=== PATIENT | male | born 1945 | race Caucasian/White ===

== ENCOUNTER → 2018-12-10 | Outpatient (CLI) | payer BC ==
[2018-12-11 01:19] LABS: African American GFR (CKD) 44.7 (60.0-200.0); Anion Gap 11.7 mmol/L (4.00-12.00); BUN/Creat Ratio 14.12 Ratio (12.00-20.00); Calcium 9.5 mg/dL (8.7-10.3); Carbon Dioxide 25.3 mmol/L (21.6-31.8); Potassium 4.8 mmol/L (3.5-5.5)
== END | disposition home or self-care (01) ==
LOC: LABWHC1 14:21
PROVIDERS: ATTEND Internal Medicine Cardiovascular Disease
DX: I48.91 Unspecified atrial fibrillation (principal)
CPT/HCPCS: 36415; 80048

== ENCOUNTER 2019-01-03 06:55 | Emergency (ER) | payer MEDICARE, BC ==
[2019-01-03 07:16] VITALS: BP 186/76; PULSE 82; RESP 18; TEMP 98.3
--- NOTE | 2019-01-03 07:21 | ED ---
General Adult HPI - General Chief complaint: Urogenital Stated complaint: Urinary retention Time Seen by Provider: 01/03/19 07:00 Source: patient, EMS, RN notes reviewed Mode of arrival: EMS Limitations: no limitations - History of Present Illness Initial comments: Patient is a pleasant 73-year-old male presenting to the emergency department with urinary retention. Patient does have chronic bladder problems and urinate sometimes every half hour. Patient usually does not sleep more than 4 hours at night. Patient last urinated around midnight. Patient complains of fullness in the suprapubic region. No fevers. No other complaints. No injuries. No dysuria or hematuria. - Related Data Allergies Allergy/AdvReac Type Severity Reaction Status Date / Time No Known Allergies Allergy Verified 01/03/19 07:16 Review of Systems ROS Statement: Those systems with pertinent positive or pertinent negative responses have been documented in the HPI. ROS Other: All systems not noted in ROS Statement are negative. Constitutional: Denies: fever Eyes: Denies: eye pain ENT: Denies: ear pain Respiratory: Denies: cough, dyspnea Cardiovascular: Denies: chest pain Endocrine: Denies: fatigue Gastrointestinal: Reports: as per HPI Genitourinary: Reports: as per HPI, urgency Musculoskeletal: Denies: back pain Skin: Denies: rash Neurological: Denies: weakness Past Medical History Additional Past Medical History / Comment(s): Enlarged prostate History of Any Multi-Drug Resistant Organisms: None Reported Past Surgical History: Pacemaker Additional Past Surgical History / Comment(s): nasal surgery Past Psychological History: No Psychological Hx Reported Smoking Status: Never smoker Past Alcohol Use History: None Reported Past Drug Use History: None Reported General Exam Limitations: no limitations General appearance: alert, in no apparent distress Head exam: Present: normocephalic Eye exam: Present: normal appearance Neck exam: Present: normal inspection Respiratory exam: Present: normal lung sounds bilaterally Cardiovascular Exam: Present: regular rate, normal rhythm GI/Abdominal exam: Present: soft. Absent: tenderness exam: Present: normal inspection Extremities exam: Present: pedal edema (+1 bilateral the patient states is chronic). Absent: calf tenderness Neurological exam: Present: alert Psychiatric exam: Present: normal affect, normal mood Skin exam: Present: normal color Course Vital Signs 01/03/19 06:56 Temperature 98.3 F Pulse Rate 82 Respiratory 18 Rate Blood Pressure 186/76 O2 Sat by Pulse 97 Oximetry Medical Decision Making - Medical Decision Making Patient is symptom-free following Saenz catheter placement Disposition Clinical Impression: Urinary retention Disposition: HOME SELF-CARE Condition: Stable Instructions (If sedation given, give patient instructions): Urinary Retention in Men (ED) Additional Instructions: Please follow-up with urology in the next couple days for recheck. Please also follow-up with primary care physician. Return for pain, not passing urine, fevers, worsening symptoms or other concerns. Is patient prescribed a controlled substance at d/c from ED?: No Referrals: Chente Sanchez DO [Primary Care Provider] - 1-2 days Celso Garcia MD [STAFF PHYSICIAN] - 1-2 days Time of Disposition: 07:20
== END 2019-01-03 08:04 | disposition home or self-care (01) ==
LOC: EC 06:55
DX: R33.9 Retention of urine, unspecified (principal); Z95.0 Presence of cardiac pacemaker
CPT/HCPCS: 51702; 99283

== ENCOUNTER → 2019-01-13 | Outpatient (CLI) | payer MEDICARE, BC ==
--- NOTE | 2019-01-13 15:40 | XR ---
EXAMINATION TYPE: XR KUB DATE OF EXAM: 01/13/2019 COMPARISON: NONE HISTORY: Pain possible stone TECHNIQUE: One view abdominal series FINDINGS: Multilevel degenerative changes spine. Arthropathy of the hips correlate. Vascular calcifications pel vis. Punctate calcifications likely lie outside kidneys. Surgical clips quadrant. Chest leads in appe arance. Bowel gas pattern nonspecific. IMPRESSION: 1. Nonspecific abdomen. Punctate calcifications in the upper quadrants most likely lie outside the c ourse of the kidneys. They could potentially be within the proximal right ureter and correlation with noncontrast CT recommended.
== END | disposition home or self-care (01) ==
LOC: RADXRMAIN 15:18
PROVIDERS: ATTEND Urology
DX: N20.9 Urinary calculus, unspecified (principal)
CPT/HCPCS: 74018

== ENCOUNTER 2019-01-17 08:18 | Emergency (ER) | payer MEDICARE, BC ==
[2019-01-17 08:24] VITALS: RESP 18; TEMP 96.7
[2019-01-17] MEDS ORDERED: SODIUM CHLORIDE 0.9% 1,000 ML IV ONE (08:32)
[2019-01-17] MEDS ORDERED: MORPHINE SULFATE 4 MG/ML SYRINGE IV STA (08:32)
--- NOTE | 2019-01-17 08:35 | ED ---
General Adult HPI - General Chief complaint: Fall Stated complaint: FALL Time Seen by Provider: 01/17/19 08:21 Source: patient, EMS, RN notes reviewed Mode of arrival: EMS Limitations: no limitations - History of Present Illness Initial comments: Patient is a pleasant 73-year-old male presenting to the emergency department following a fall. Patient states he tripped and fell. Patient denies any head injury or loss of consciousness. Patient denies any blood thinners. Patient denies syncope. No neck or back pain. No chest pain or dyspnea. No abdominal pain. Patient only complains of right shoulder discomfort. Patient states discomfort is moderate but severe with any attempted movement. No history of injury to her previously. Patient does normally use a walker. - Related Data Home Medications Medication Instructions Recorded Confirmed Amiodarone [Cordarone] 200 mg PO DAILY 01/03/19 01/03/19 Aspirin [Adult Low Dose Aspirin EC] 81 mg PO DAILY 01/03/19 01/03/19 Atorvastatin [Lipitor] 10 mg PO DAILY 01/03/19 01/03/19 Furosemide [Lasix] 40 mg PO DAILY 01/03/19 01/03/19 Insulin Glargine,Hum.rec.anlog 25 - 50 unit SQ BID 01/03/19 01/03/19 [Basaglar Kwikpen U-100] Lisinopril 20 mg PO BID 01/03/19 01/03/19 Metoprolol Succinate [Toprol XL] 100 mg PO BID 01/03/19 01/03/19 Potassium Chloride ER [K-Dur 10] 10 meq PO BID 01/03/19 01/03/19 amLODIPine [Norvasc] 5 mg PO DAILY 01/03/19 01/03/19 metFORMIN HCL 1,000 mg PO BID 01/03/19 01/03/19 Allergies Allergy/AdvReac Type Severity Reaction Status Date / Time No Known Allergies Allergy Verified 01/03/19 07:29 Review of Systems ROS Statement: Those systems with pertinent positive or pertinent negative responses have been documented in the HPI. ROS Other: All systems not noted in ROS Statement are negative. Constitutional: Denies: fever Eyes: Denies: eye pain ENT: Denies: ear pain Respiratory: Denies: dyspnea Cardiovascular: Denies: chest pain Endocrine: Denies: fatigue Gastrointestinal: Denies: abdominal pain Genitourinary: Denies: dysuria Musculoskeletal: Denies: back pain Skin: Denies: rash Neurological: Denies: headache, weakness Past Medical History Additional Past Medical History / Comment(s): Enlarged prostate History of Any Multi-Drug Resistant Organisms: None Reported Past Surgical History: Pacemaker Additional Past Surgical History / Comment(s): nasal surgery Past Psychological History: No Psychological Hx Reported Smoking Status: Never smoker Past Alcohol Use History: None Reported Past Drug Use History: None Reported General Exam Limitations: no limitations General appearance: alert, in no apparent distress Head exam: Present: atraumatic, normocephalic Eye exam: Present: normal appearance, PERRL ENT exam: Present: mucous membranes dry Neck exam: Present: normal inspection. Absent: tenderness Respiratory exam: Present: normal lung sounds bilaterally Cardiovascular Exam: Present: regular rate, normal rhythm Expanded Peripheral pulses: 2+: Radial (R) GI/Abdominal exam: Present: soft. Absent: tenderness Extremities exam: Present: tenderness (Tenderness and fullness right anterior shoulder.), other (Distally all extremities are neurovascularly intact. Cap refill less than 2 seconds. Good sensation and good strength.). Absent: full ROM (Limited range of motion right shoulder secondary to pain) Back exam: Present: normal inspection. Absent: tenderness Neurological exam: Present: alert. Absent: motor sensory deficit Psychiatric exam: Present: normal affect, normal mood Skin exam: Present: normal color Course Vital Signs 01/17/19 08:20 Temperature 96.7 F L Pulse Rate 60 Respiratory 18 Rate Blood Pressure 130/58 O2 Sat by Pulse 95 Oximetry Medical Decision Making - Medical Decision Making Patient reevaluated. Patient and family updated. Also updated on need for follow-up with repeat white blood cell count. - Lab Data Result diagrams: 01/17/19 08:40 01/17/19 08:40 Lab Results 01/17/19 01/17/19 Range/Units 08:40 08:40 WBC 23.7 H (3.8-10.6) k/uL RBC 4.57 (4.30-5.90) m/uL Hgb 13.5 (13.0-17.5) gm/dL Hct 40.2 (39.0-53.0) % MCV 88.0 (80.0-100.0) fL MCH 29.5 (25.0-35.0) pg MCHC 33.6 (31.0-37.0) g/dL RDW 13.2 (11.5-15.5) % Plt Count 216 (150-450) k/uL Neutrophils % 92 % Lymphocytes % 4 % Monocytes % 3 % Eosinophils % 0 % Basophils % 0 % Neutrophils # 21.8 H (1.3-7.7) k/uL Lymphocytes # 1.0 (1.0-4.8) k/uL Monocytes # 0.7 (0-1.0) k/uL Eosinophils # 0.0 (0-0.7) k/uL Basophils # 0.0 (0-0.2) k/uL Sodium 142 (137-145) mmol/L Potassium 3.8 (3.5-5.1) mmol/L Chloride 106 (98-107) mmol/L Carbon Dioxide 23 (22-30) mmol/L Anion Gap 13 mmol/L BUN 32 H (9-20) mg/dL Creatinine 1.69 H (0.66-1.25) mg/dL Est GFR (CKD-EPI)AfAm 45 (>60 ml/min/1.73 sqM) Est GFR (CKD-EPI)NonAf 39 (>60 ml/min/1.73 sqM) Glucose 138 H (74-99) mg/dL Calcium 9.4 (8.4-10.2) mg/dL Total Bilirubin 0.8 (0.2-1.3) mg/dL AST 26 (17-59) U/L ALT 28 (21-72) U/L Alkaline Phosphatase 81 (38-126) U/L Creatine Kinase 144 (55-170) U/L Total Protein 7.0 (6.3-8.2) g/dL Albumin 3.8 (3.5-5.0) g/dL - Radiology Data Radiology results: image reviewed (Chest x-ray, right humerus, and right shoulder x-rays show a proximal right humerus fracture. There is also mild central chest congestion.) Disposition Clinical Impression: Fall, Proximal humerus fracture, Leukopenia Disposition: HOME SELF-CARE Condition: Stable Instructions (If sedation given, give patient instructions): Fall Prevention for Older Adults (ED), Proximal Humerus Fracture (ED) Additional Instructions: Use sling. Ice to affected area. [id number] Tylenol or Motrin as needed. Please follow-up with orthopedics in the next couple days for recheck. Please have primary care physician recheck white blood cell come. Return for increased pain, weakness, worsening or changing symptoms or other concerns. Is patient prescribed a controlled substance at d/c from ED?: No Referrals: Chente Sanchez DO [Primary Care Provider] - 1-2 days Rios Carson MD [STAFF PHYSICIAN] - 1-2 days Time of Disposition: 10:06
[2019-01-17 08:59] LABS: Basophils % (A) 0 %; Eosinophils % (A) 0 %; HCT 40.2 % (39.0-53.0); HGB 13.5 gm/dL (13.0-17.5); Lymphocytes % (A) 4 %; MCH 29.5 pg (25.0-35.0); MCHC 33.6 g/dL (31.0-37.0); Mean Platelet Volume 6.5; Monocytes # (A) 0.7 k/uL (0-1.0); Monocytes % (A) 3 %; Neutrophils # (A) 21.8 k/uL (1.3-7.7); Neutrophils % (A) 92 %; Platelet Count 216 k/uL (150-450); RBC 4.57 m/uL (4.30-5.90); RDW 13.2 % (11.5-15.5); WBC 23.7 k/uL (3.8-10.6)
[2019-01-17 09:10] LABS: Albumin 3.8 g/dL (3.5-5.0); Calcium 9.4 mg/dL (8.4-10.2); Potassium 3.8 mmol/L (3.5-5.1); Total Bilirubin 0.8 mg/dL (0.2-1.3)
--- NOTE | 2019-01-17 09:29 | XR ---
EXAMINATION TYPE: XR chest 2V DATE OF EXAM: 01/17/2019 COMPARISON: NONE HISTORY: Chest pain after fall TECHNIQUE: Frontal and lateral views of the chest are obtained. FINDINGS: There is slight vascular prominence throughout, predominantly centrally. There is no focal air space opacity, pleural effusion, or pneumothorax seen. Dual lead left-sided cardiac device is se en. Mediastinum is shifted to the left secondary to patient rotation. Cardiomediastinal silhouette ap pears upper limits of normal but nonenlarged. Right shoulder acute fracture discussed on the humeral x-rays and shoulder x-rays of the same date. IMPRESSION: 1. Mild central pulmonary vascular congestion. 2. Proximal right humeral fracture discussed on the right shoulder radiographs of the same date.
--- NOTE | 2019-01-17 09:31 | XR ---
EXAMINATION TYPE: XR shoulder complete 3 views RT, XR humerus 2 views RT DATE OF EXAM: 01/17/2019 COMPARISON: NONE HISTORY: 73-year-old male with fall and pain FINDINGS: Right shoulder: AC joint is intact. Mild degenerative spurring. There is a mildly fracture of the surgical neck with 1.3 cm of anterior impaction and slight anterior apex angulation. Questionable nondisplaced fracture lucency extending into the greater tuberosity. N o subluxation or dislocation. Right humerus: No additional acute fracture of the more mid to distal humerus. IMPRESSION: 1. Right shoulder: Anterior impaction of 1.3 cm with anterior apex angulation of the two-part surgica l neck fracture. Questionable mild comminution with a fracture lucency extending into the greater tub erosity region. 2. Right humerus: No additional acute fracture of the more mid to distal humerus.
[2019-01-17] MEDS ORDERED: ONDANSETRON 4 MG/2 ML VIAL IVP STA (10:01)
[2019-01-17] MEDS ORDERED: ACET/COD 300 MG/30 MG STARTER PACK 6 TAB BTL PO STA (10:04)
[2019-01-17 10:10] VITALS: BP 110/58; PULSE 65
== END 2019-01-17 10:08 | disposition home or self-care (01) ==
LOC: EC 08:18
DX: S42.211A Unspecified displaced fracture of surgical neck of right humerus, initial encounter for closed fracture (principal); D72.819 Decreased white blood cell count, unspecified; W01.0XXA Fall on same level from slipping, tripping and stumbling without subsequent striking against object, initial encounter; Y92.009 Unspecified place in unspecified non-institutional (private) residence as the place of occurrence of the external cause
CPT/HCPCS: 36415; 80053; 82550; 85025; 73030; 73060; 71046; 99284; 96374; 96375; 96361; J2270; J2405

== ENCOUNTER 2019-01-19 01:58 | Inpatient (IN) | payer MEDICARE, BC ==
[2019-01-19] MEDS ORDERED: MORPHINE SULFATE 4 MG/ML SYRINGE IM STA (02:46)
--- NOTE | 2019-01-19 02:47 | ED ---
General Adult HPI - General Chief complaint: Recheck/Abnormal Lab/Rx Stated complaint: Shoulder Pain Time Seen by Provider: 01/19/19 02:13 Source: patient, EMS Mode of arrival: EMS - History of Present Illness Initial comments: Vinny is a 73-year-old gentleman who returns to the emergency department today for reevaluation of persistent pain in his right shoulder. She was seen and evaluated yesterday after a mechanical trip and fall, workup revealed a proximal humerus fracture. Patient was placed in a sling and discharged home. Patient followed up with orthopedics the morning, he was advised that treatment will be conservative management with a sling there is no casting or surgical intervention recommended. He was prescribed Cowarts. Patient reports he has been taking Cowarts with 0 improvement in his pain. Patient reports the pain an 8 out of 10 intensity, constant. Patient usually walks with a walker. Patient reports that he is having trouble getting around, he's having trouble obtaining do his activities of daily living. Patient reports that earlier in the night he laid down in bed and was in such severe pain he was unable to move, he states that he called for help her long period of time because he could not reach his cell phone. Patient states he doesn't feel safe currently of blurry water [facility] because he is unable to help care for himself and there is not enough medical care available to him. - Related Data Home Medications Medication Instructions Recorded Confirmed Amiodarone [Cordarone] 200 mg PO DAILY 01/03/19 01/03/19 Aspirin [Adult Low Dose Aspirin EC] 81 mg PO DAILY 01/03/19 01/03/19 Atorvastatin [Lipitor] 10 mg PO DAILY 01/03/19 01/03/19 Furosemide [Lasix] 40 mg PO DAILY 01/03/19 01/03/19 Insulin Glargine,Hum.rec.anlog 25 - 50 unit SQ BID 01/03/19 01/03/19 [Basaglar Kwikpen U-100] Lisinopril 20 mg PO BID 01/03/19 01/03/19 Metoprolol Succinate [Toprol XL] 100 mg PO BID 01/03/19 01/03/19 Potassium Chloride ER [K-Dur 10] 10 meq PO BID 01/03/19 01/03/19 amLODIPine [Norvasc] 5 mg PO DAILY 01/03/19 01/03/19 metFORMIN HCL 1,000 mg PO BID 01/03/19 01/03/19 Allergies Allergy/AdvReac Type Severity Reaction Status Date / Time No Known Allergies Allergy Verified 01/03/19 07:29 Review of Systems ROS Statement: Those systems with pertinent positive or pertinent negative responses have been documented in the HPI. ROS Other: All systems not noted in ROS Statement are negative. Past Medical History Additional Past Medical History / Comment(s): Enlarged prostate History of Any Multi-Drug Resistant Organisms: None Reported Past Surgical History: Pacemaker Additional Past Surgical History / Comment(s): nasal surgery Past Psychological History: No Psychological Hx Reported Smoking Status: Never smoker Past Alcohol Use History: None Reported Past Drug Use History: None Reported General Exam - General Exam Comments Initial Comments: Physical Exam GENERAL: Elderly, appears uncomfortable HENT: Normocephalic, Atraumatic. EYES: PERRL, EOMI PULMONARY: Patient is taking shallow respirations secondary to pain in his shoulder CARDIOVASCULAR: Systolic murmur ABDOMEN: Soft and nontender with normal bowel sounds. SKIN: Skin is clear with no lesions or rashes and otherwise unremarkable. : Deferred NEUROLOGIC: Patient is alert and oriented x3. Moving all extremities spontaneously MUSCULOSKELETAL: Right upper extremity in a sling. Clearly refill is less than 3 seconds, he has normal range of motion of the hand and wrist. Elbow remains in sling, range of motion of shoulder was not assessed due to her PSYCHIATRIC: Agitated Course Vital Signs 01/19/19 01/19/19 01/19/19 02:01 02:58 02:59 Temperature 98.2 F Pulse Rate 61 60 Respiratory 18 18 Rate Blood Pressure 125/59 115/54 O2 Sat by Pulse 92 L 89 L 90 L Oximetry Medical Decision Making - Medical Decision Making The patient was seen and evaluated, history is obtained from the patient and review of medical record 73-year-old gentleman with a proximal humerus fracture from a mechanical trip and fall yesterday. Patient with persistent pain in the shoulder and inability to attend her activities of daily living secondary to pain and arm being in a splint. A dose of morphine was ordered for pain management. Patient was reassessed and reported no improvement in his pain however states he is now tired. I again discussed with patient options for discharge back to [facility] versus admission to the hospital for pain management and possible placement for higher level of care. At this time patient doesn't feel comfortable being discharged home. Patient care was discussed with admitting physician Dr. Astorga who agrees with plan for observation with plan for pain management and placement for safer care for the patient. Disposition Clinical Impression: Proximal humerus fracture Disposition: ADMITTED IP TO THIS [facility] Condition: Stable Additional Instructions: Continue to take your Cowarts as prescribed by orthopedics. Follow-up with your primary care physician for reevaluation of her high white blood cell count prior to your planned surgical procedure with urology. Is patient prescribed a controlled substance at d/c from ED?: No Referrals: Chente Sanchez DO [Primary Care Provider] - 1-2 days
[2019-01-19] MEDS ORDERED: NALOXONE 0.4 MG/ML 1 ML VIAL IV PRN (04:39)
[2019-01-19 05:22] LABS: Basophils # (A) 0.1 k/uL (0-0.2); Basophils % (A) 0 %; Eosinophils # (A) 0.1 k/uL (0-0.7); Eosinophils % (A) 1 %; HCT 36.1 % (39.0-53.0); Lymphocytes # (A) 1.4 k/uL (1.0-4.8); Lymphocytes % (A) 8 %; MCH 29.1 pg (25.0-35.0); MCHC 33.2 g/dL (31.0-37.0); MCV 87.6 fL (80.0-100.0); Mean Platelet Volume 6.6; Monocytes # (A) 0.8 k/uL (0-1.0); Monocytes % (A) 5 %; Neutrophils # (A) 14.8 k/uL (1.3-7.7); Neutrophils % (A) 86 %; Platelet Count 224 k/uL (150-450); RBC 4.12 m/uL (4.30-5.90); RDW 13.4 % (11.5-15.5); WBC 17.4 k/uL (3.8-10.6)
[2019-01-19 05:25] LABS: Albumin 3.6 g/dL (3.5-5.0); Calcium 8.5 mg/dL (8.4-10.2); Potassium 4.2 mmol/L (3.5-5.1); Total Bilirubin 0.5 mg/dL (0.2-1.3); Total Protein 6.6 g/dL (6.3-8.2)
[2019-01-19] MEDS: MORPHINE SULFATE 4 MG/ML SYRINGE IV PRN ×5 (06:06→22:28)
[2019-01-19 07:02] LABS: Glucose,Whole Blood 206 mg/dL (75-99)
--- NOTE | 2019-01-19 07:29 | P.HPIM ---
History of Present Illness H&P Date: 01/19/19 Chief Complaint: pain right shoulder 73-year-old male with history of hypertension, diabetes, unknown arrhythmia status post pacemaker. Patient reports sustaining a fall 2 days ago while at home he tripped on the rug, denies any headache injury or loss of consciousness he was brought into the ER was found to have proximal right humeral fracture he was placed in an arm sli ng and discharged home he followed up with orthopedics who recommended conservative management. Patient reports that at home he was dealing with a lot of pain taking [place]'s which wasn't apparently helping much he reports that he gets a caregiver regularly. At baseline he walks around his apartment of two- bedroom without assistance but he has 2 walkers when needed. However yesterday while at home he felt that the pain was poorly controlled and started affecting his quality of life he couldn't get himself up from a sitting position or when he lays down in the bed without contacting effort. He couldn't even reach out to his phone or call her to notify his caregiver that he needs help. For which she decided come back to the hospital to optimize his pain control. Patient also interested in placement for short period at the rehab facility if appropriate. Patient reports that he feels a lot of pain in his right shoulder even when he tries to take a deep breath or cough, even moving his fingers causes some discomfort in his right arm Upon review of systems patient reports 1-2 week history of urinary retention, he mentioned that he was evaluated at the ER for urinary retention for which he was found that he was retaining 900 mL of urine Saenz catheter was placed for few days he followed up with urology who did cystoscopy to rule out bladder stones. He was told that he has enlarged prostate. Since then he's been dealing with some urinary incontinence and retention, but denies any fevers or chills denies any abdominal pain denies any hematuria. Patient could not verify his home medications, he reports history of hypertension, diabetes, and pacemaker. He denies taking any blood thinners. He denies any GI bleeding. Patient was also noted to have right lower extremity swelling, he reports that this been going on for about a week now for which she takes Lasix. Denies any recent traveling, denies any trauma to the leg, denies any active diagnoses of cancer. Denies any pain or discomfort in his right lower extremity. Blood work in the ED showed elevated creatinine, elevated white count, and anemia. Review of Systems Pertinent positives as noted in HPI. All other systems were reviewed and are negative Past Medical History Past Medical History: Diabetes Mellitus, Hyperlipidemia, Hypertension, Prostate Disorder Additional Past Medical History / Comment(s): Enlarged prostate History of Any Multi-Drug Resistant Organisms: None Reported Past Surgical History: Pacemaker Additional Past Surgical History / Comment(s): nasal surgery Type of Cardiac Device: Permanent Pacemaker Device Placement Date:: 2017 Past Psychological History: No Psychological Hx Reported Smoking Status: Never smoker Past Alcohol Use History: None Reported Past Drug Use History: None Reported - Past Family History Family Family Medical History: No Reported History Medications and Allergies Home Medications Medication Instructions Recorded Confirmed Type Amiodarone [Cordarone] 200 mg PO DAILY 01/03/19 01/03/19 History Aspirin [Adult Low Dose Aspirin EC] 81 mg PO DAILY 01/03/19 01/03/19 History Atorvastatin [Lipitor] 10 mg PO DAILY 01/03/19 01/03/19 History Furosemide [Lasix] 40 mg PO DAILY 01/03/19 01/03/19 History Insulin Glargine,Hum.rec.anlog 25 - 50 unit SQ BID 01/03/19 01/03/19 History [Basaglar Kwikpen U-100] Lisinopril 20 mg PO BID 01/03/19 01/03/19 History Metoprolol Succinate [Toprol XL] 100 mg PO BID 01/03/19 01/03/19 History Potassium Chloride ER [K-Dur 10] 10 meq PO BID 01/03/19 01/03/19 History amLODIPine [Norvasc] 5 mg PO DAILY 01/03/19 01/03/19 History metFORMIN HCL 1,000 mg PO BID 01/03/19 01/03/19 History Allergies Allergy/AdvReac Type Severity Reaction Status Date / Time No Known Allergies Allergy Verified 01/03/19 07:29 Physical Exam Vitals: Vital Signs Temp Pulse Pulse Resp BP BP Pulse Ox 01/19/19 05:30 98.1 F 60 22 158/62 93 L 01/19/19 05:01 98.2 F 60 17 141/64 94 L 01/19/19 02:59 90 L 01/19/19 02:58 60 18 115/54 89 L 01/19/19 02:01 98.2 F 61 18 125/59 92 L Intake and Output 01/18/19 01/18/19 01/19/19 14:59 22:59 06:59 Output Total 150 Balance -150 Output: Urine 150 Other: Weight 99.79 kg Constitutional: No acute distress, conversant, pleasant Eyes: Anicteric sclerae, moist conjunctiva, no lid-lag Pupils equal round reactive to light ENMT: NC/AT Oropharynx clear, no erythema, exudates Neck: Supple, FROM, no masses, or JVD No carotid bruits No thyromegaly Lungs: Clear to auscultation Clear to percussion Normal respiratory effort, no accessory muscle use Cardiovascular: Heart regular in rate and rhythm, Systolic murmurs, no gallops, or rubs Unilateral right leg swelling +2 pitting edema Abdominal: Soft, no tenderness to percussion of the costovertebral angle Nontender, no guarding, rebound or rigidity Abdomen moving with respiration Normoactive bowel sounds No hepatomegaly, No splenomegaly No palpable mass No abdominal wall hernia noted Skin: Bruising and ecchymosis over the entirety of the right arm soft to the touch with some mild tenderness Normal temperature, tone, texture, turgor No induration No subcutaneous nodules No rash, lesions No ulcers Extremities: Radial pulse over the right wrist is intact, no swelling over the right hand, capillary refill is immediate over the right fingers. Patient denies any numbness or tingling over the right fingers No digital cyanosis No clubbing Pedal pulses intact bilaterally however more pronounced over the left foot Radial pulses intact and symmetrical No calf tenderness Psychiatric: Alert and oriented to person, place and time Appropriate affect fair judgment Neuro Muscles Strength 4/5 in bilateral lower extremities and left upper extremity limited exam over right upper extremity due to severe pain from recent humeral fracture Sensation to light touch grossly present throughout Cranial nerves II-XII grossly intact No focal sensory deficits Lymphatics: no palpable cervical or supraclavicular , or inguinal lymph nodes Results CBC & Chem 7: 01/19/19 05:07 01/19/19 05:07 Labs: Abnormal Lab Results - Last 24 Hours (Table) 01/19/19 01/19/19 Range/Units 05:07 05:07 WBC 17.4 H (3.8-10.6) k/uL RBC 4.12 L (4.30-5.90) m/uL Hgb 12.0 L (13.0-17.5) gm/dL Hct 36.1 L (39.0-53.0) % Neutrophils # 14.8 H (1.3-7.7) k/uL Sodium 135 L (137-145) mmol/L BUN 61 H (9-20) mg/dL Creatinine 3.14 H (0.66-1.25) mg/dL Glucose 215 H (74-99) mg/dL Thrombosis Risk Factor Assmnt - Choose All That Apply Any of the Below Risk Factors Present?: Yes Each Factor Represents 1 point: Obesity (BMI >25), Swollen legs (current) Other Risk Factors: Yes Each Risk Factor Represents 3 Points: Age 75 years or older Thrombosis Risk Factor Assessment Total Risk Factor Score: 5 Thrombosis Risk Factor Assessment Level: High Risk Assessment and Plan Assessment: 73-year-old male with history of hypertension, diabetes, unknown arrhythmia status post pacemaker. Patient sustained a mechanical trip and fall resulted in right humerus fracture 2 days ago, evaluated by orthopedic who recommended conservative management. Patient lives home alone he gets a caregiver however pain was intolerable patient couldn't function alone at home for which she decided come back to the hospital seeking help Upon presentation he was found to have elevated creatinine suspected to have underlying obstructive uropathy from history of prostate enlargement. Suspected UTI. And unilateral right lower extremity swelling rule out blood clot. Patient admitted as an inpatient with anticipated length of stay more than 2 midnights Plan: Acute kidney injury suspected underlying obstructive uropathy from history of benign prostatic hyperplasia Suspected urinary tract infection, patient has leukocytosis and foul-smelling urine Check bladder scan Check renal ultrasound Started on Flomax Check urinalysis and culture IV fluid hydration Avoid nephrotoxic meds Monitor urine output Consider urology consultation pending above workup Unilateral right leg swelling Venous duplex ultrasound to rule out blood clot Hypertension controlled Resume home meds once verified DM Currently controlled Insulin sliding scale Verify home insulin regimen Proximal right humeral fracture Pain control Per patient report, outpatient orthopedic evaluation recommended conservative therapy with arm sling Anemia, patient denies any GI bleeding Monitor hemoglobin closely Patient status post pacemaker unknown underlying cardiac pathology Again verify home meds which includes amiodarone GI prophylaxis PPI Fall precautions Consistent carbohydrate diet CODE STATUS: Full code DVT prophylaxis: Heparin subcu 3 times a day Discussed with: Patient, ER, RN Anticipated length of stay more than [address]: Short stay at subacute rehab A total of 60 minutes was spent on the care of this complex patient more than 50% of the time was spent in counseling and care coordination.
[2019-01-19] MEDS: TAMSULOSIN 0.4 MG CAP.ER.24H PO SCH (08:22)
[2019-01-19] MEDS: PANTOPRAZOLE 40 MG TABLET PO SCH (08:22)
[2019-01-19] MEDS: INSULIN ASPART (NovoLOG) 100 UNIT/ML VIAL SQ SCH ×4 (08:23→21:13)
[2019-01-19] MEDS: HEPARIN SODIUM,PORCINE 5,000 UNIT/ML 1 ML VIAL SQ SCH ×3 (08:23→22:27)
--- NOTE | 2019-01-19 10:02 | US ---
EXAMINATION TYPE: US venous doppler duplex LE RT DATE OF EXAM: 01/19/2019 9:28 AM COMPARISON: NONE CLINICAL HISTORY: blood clot. Right leg swelling, exam done portable. SIDE PERFORMED: Right TECHNIQUE: The lower extremity deep venous system is examined utilizing real time linear array sonog carson with graded compression, doppler sonography and color-flow sonography. VESSELS IMAGED: External Iliac Vein (EIV) Common Femoral Vein Deep Femoral Vein Greater Saphenous Vein * Femoral Vein Popliteal Vein Small Saphenous Vein * Proximal Calf Veins (* superficial vessels) Right Leg: Appears negative for DVT IMPRESSION: 1. No diagnostic evidence of DVT as visualized.
--- NOTE | 2019-01-19 10:03 | US ---
EXAMINATION TYPE: US kidneys/renal and bladder DATE OF EXAM: 01/19/2019 COMPARISON: NONE CLINICAL HISTORY: obstructive uropathy. Patient states no symptoms, exam done portable. EXAM MEASUREMENTS: Right Kidney: 10.4 x 4.9 x 4.6 cm Left Kidney: 11.0 x 6.7 x 5.1 cm Right Kidney: no hydronephrosis or masses seen Left Kidney: no hydronephrosis or masses seen Bladder: not fully distended 3.8 x 3.5 x 3.7cm hypoechoic area indenting posterior bladder, probable prostate IMPRESSION: 1. No hydronephrosis or nephrolithiasis. Hypoechoic area posterior to the bladder. This may represent ing enlarged prostate impressing upon the bladder, however, a bladder neoplasm is not excluded and a CT of the pelvis is recommended.
[2019-01-19] MEDS: SODIUM CHLORIDE 0.9% 1,000 ML IV SCH ×3 (10:42→21:39)
[2019-01-19] MEDS ORDERED: INSULIN GLARGINE HUM REC ANLOG 25 UNIT SQ PRN (11:18)
[2019-01-19 11:28] LABS: Appearance,Urine Clear (Clear); Bilirubin,Urine Negative (Negative); Blood,Urine Negative (Negative); Color,Urine Light Yellow; Glucose,Urine (UA) Negative (Negative); Ketones,Urine Negative (Negative); Leukocyte Esterase,Urine Negative (Negative); Nitrite,Urine Negative (Negative); Protein,Urine Trace (Negative); Specific Gravity,Urine 1.016 (1.001-1.035); Urobilinogen,Urine <2.0 mg/dL (<2.0)
[2019-01-19 12:12] LABS: Glucose,Whole Blood 180 mg/dL (75-99)
[2019-01-19 17:15] LABS: Glucose,Whole Blood 127 mg/dL (75-99)
--- NOTE | 2019-01-19 17:33 | P.PN ---
Progress Note - Text Progress Note Date: 01/19/19 Patient initially admitted for inability to take care of himself, ADLs, IADLs since fracture of his right humerus. Concerns for obstructive uropathy given elevation in creatinine. Bladder ultrasound shows no hydronephrosis or nephrolithiasis, hypoechoic area posterior to the bladder. I ordered CT abdomen and pelvis but wanted urology to evaluate the patient prior to any further testing ordered. Urology was consulted, stated that this was previously evaluated and confirmed to be hypertrophic of the prostate rather than neoplasm. CT abdomen and pelvis was canceled. Patient is started on IV antibiotics for concerns of UTI. Social work has been consulted and referral has been made for [facility]. He will need a 3 night stay prior to discharge.
[2019-01-19 20:07] LABS: Glucose,Whole Blood 144 mg/dL (75-99)
[2019-01-19] MEDS: INSULIN DETEMIR (LEVEMIR) 100 UNIT/ML SYR SQ SCH (21:13)
[2019-01-19] MEDS: METOPROLOL SUCCINATE (ER) 100 MG TAB.ER.24H PO SCH (21:13)
[2019-01-20] MEDS: SODIUM CHLORIDE 0.9% 1,000 ML IV SCH ×3 (05:37→21:34)
[2019-01-20 07:09] LABS: Glucose,Whole Blood 111 mg/dL (75-99)
[2019-01-20] MEDS: TAMSULOSIN 0.4 MG CAP.ER.24H PO SCH (08:02)
[2019-01-20] MEDS: ASPIRIN 81 MG PO SCH (08:02)
[2019-01-20] MEDS: ATORVASTATIN 10 MG TAB PO SCH (08:02)
[2019-01-20] MEDS: METOPROLOL SUCCINATE (ER) 100 MG TAB.ER.24H PO SCH ×2 (08:02→21:33)
[2019-01-20] MEDS: PANTOPRAZOLE 40 MG TABLET PO SCH (08:02)
[2019-01-20] MEDS: AMIODARONE 200 MG TAB PO SCH (08:02)
[2019-01-20] MEDS: amLODIPine 5 MG TAB PO SCH (08:02)
[2019-01-20] MEDS: INSULIN DETEMIR (LEVEMIR) 100 UNIT/ML SYR SQ SCH ×2 (08:03→21:34)
[2019-01-20] MEDS: HEPARIN SODIUM,PORCINE 5,000 UNIT/ML 1 ML VIAL SQ SCH ×3 (08:03→23:11)
[2019-01-20] MEDS: MORPHINE SULFATE 4 MG/ML SYRINGE IV PRN ×2 (08:04→21:37)
[2019-01-20] MEDS: INSULIN ASPART (NovoLOG) 100 UNIT/ML VIAL SQ SCH ×4 (08:18→21:34)
[2019-01-20 12:28] LABS: Glucose,Whole Blood 135 mg/dL (75-99)
[2019-01-20] MEDS: HYDROcodone/APAP 5-325MG 1 EACH TAB PO PRN (14:21)
--- NOTE | 2019-01-20 14:48 | P.PN ---
Subjective Progress Note Date: 01/20/19 Principal diagnosis: UTI Patient was seen and examined. No acute events overnight. Patient unhappy with hospital experience because he is unable to ambulate. PT called to assist patient. He denies any chest pain, shortness of breath or palpitations. No nausea or vomiting. No fever or chills. Right upper extremity pain greatly improved since starting [facility]. Objective - Vital Signs Vital signs: Vital Signs Temp 99.1 F 01/20/19 12:32 Pulse 61 01/20/19 12:32 Resp 20 01/20/19 12:32 BP 122/53 01/20/19 12:32 Pulse Ox 94 L 01/20/19 12:32 Intake & Output 01/19/19 01/20/19 01/20/19 18:59 06:59 18:59 Intake Total 400 Output Total 700 500 600 Balance -700 -100 -600 Intake: Oral 400 Output: Urine 700 500 600 Other: Voiding Method Urinal Incontinent # Voids 2 # Bowel Movements 0 0 - Exam General: [non toxic], [no distress], [appears at stated age] Derm: [warm], [dry] Head: [atraumatic], [normocephalic], [symmetric] Eyes: [EOMI], [no lid lag], [anicteric sclera] Mouth: [no lip lesion], [mucus membranes moist] Cardiovascular: [S1S2 reg], [no murmur], [positive DP pulse bilateral], Lungs: [CTA bilateral], [no rhonchi, no rales] , [no accessory muscle use] Abdominal: [soft], [ nontender to palpation], [no guarding], [no appreciable organomegaly], [condom catheter intact] Ext: [no gross muscle atrophy], [no edema], [no contractures], [right upper extremity in sling limited range of motion due to pain] Neuro: [ CN II-XI grossly intact], [no focal neuro deficits] Psych: [Alert], [oriented], [appropriate affect] - Labs CBC & Chem 7: 01/19/19 05:07 01/19/19 05:07 Labs: Abnormal Lab Results - Last 24 Hours (Table) 01/19/19 01/19/19 01/20/19 Range/Units 17:03 20:00 07:07 POC Glucose (mg/dL) 127 H 144 H 111 H (75-99) mg/dL 01/20/19 Range/Units 12:25 POC Glucose (mg/dL) 135 H (75-99) mg/dL Assessment and Plan Assessment: Assessment and Plan Acute kidney injury, rule out obstructive uropathy with history of BPH Urinary tract infection, patient with leukocytosis and foul-smelling urine Hypertension Diabetes mellitus Anemia Proximal right humeral fracture Creatinine 3.14. Bladder and kidney ultrasound shows no hydronephrosis or nephrolithiasis, hypoechoic area posterior to the bladder. Urology consulted, recommends no further workup as this hypoechoic area is known to be due to BPH. Plans: Continue normal saline at 130 mL/h. Avoid nephrotoxins. Repeat BMP today. UA shows no leukocyte esterase or nitrites. Foul-smelling urine. Patient with leukocytosis of 17.4. Afebrile. Does not meet sepsis criteria. Plans: Start Rocephin. Follow urine culture. BP 122/53. Plans: Continue amlodipine, metoprolol. Monitor vitals, adjust medications as necessary. [id number] glucose. Plans: Continue Levemir 25 units twice a day. Regular Accu-Cheks. Hypoglycemic precautions. Hemoglobin 12.0. Normocytic. Unknown significance. Plans: Transfuse if hemoglobin less than 7. Continue to monitor. Patient unable to take care of ADLs, IADLs. Plans: PT and OT for rehab placement. Social work working on [facility]. Earliest discharge is on Thursday.
[2019-01-20 17:15] LABS: Glucose,Whole Blood 130 mg/dL (75-99)
[2019-01-20 17:27] LABS: HCT 32.7 % (39.0-53.0); HGB 10.8 gm/dL (13.0-17.5); MCH 29.8 pg (25.0-35.0); MCHC 33.2 g/dL (31.0-37.0); MCV 89.8 fL (80.0-100.0); Mean Platelet Volume 7.1; Platelet Count 191 k/uL (150-450); RBC 3.64 m/uL (4.30-5.90); RDW 13.5 % (11.5-15.5); WBC 11.7 k/uL (3.8-10.6)
[2019-01-20 17:36] LABS: Calcium 8.1 mg/dL (8.4-10.2); Potassium 4.4 mmol/L (3.5-5.1)
[2019-01-20 21:24] LABS: Glucose,Whole Blood 171 mg/dL (75-99)
[2019-01-21] MEDS: MORPHINE SULFATE 4 MG/ML SYRINGE IV PRN ×3 (04:11→22:45)
[2019-01-21] MEDS: SODIUM CHLORIDE 0.9% 1,000 ML IV SCH ×2 (05:00→15:28)
--- NOTE | 2019-01-21 06:26 | P.CONS ---
History of Present Illness - Chief Complaint Walking difficulty - History of Present Illness I had the opportunity to see patient for inpatient rehab consultation with regard to walking difficulty. He was admitted to [facility] January 19 history of fall and right shoulder pain. X-ray revealed proximal humeral fracture and underwent slinging only. Ultrasound negative for hydronephrosis and rhythm lithiasis. Right leg Doppler negative for DVT. PT reports maximal assistance for bed mobility moderate assistance for transfer and minimal assistance for gait 20 feet with roller walker. OT reports maximal assistance for upper dressing and total assistance for lower dressing and bathing. Two-person total assist for toileting and transfers/functional mobility. Previous functional history as elicited from patient: 74 showed right-handed white male who is lives in a third-floor apartment at [facility], alone. Retired. Reports meals provided. Patient states that he can drive but doesn't. Describes independent with own laundry, standing shower and gait with device. Has 4 wheeled walker, roller walker and cane. PMD Dr. Chente acosta. Denies tobacco or alcohol. Family history father with cancer. Review of Systems Review of systems: ENT: Denies sneezes or discharge. Eyes: Denies discharge or photophobia. Cardiac: Denies chest pain or palpitation. Pulmonary: Denies cough or shortness of breath. Gastrointestinal: Denies nausea, emesis, constipation, diarrhea. Genitourinary: Denies discharge or frequency. Musculoskeletal: Right arm and shoulder discomfort. Neurologic: Denies motor or sensory change. Endocrine: Denies shakes or sweats. Oncology: Denies cancers. Dermatologic: Denies rash, itching, pruritus. ALLERGY/immunology: Denies sneezes, rashes. Past Medical History Past Medical History: Diabetes Mellitus, Hyperlipidemia, Hypertension, Prostate Disorder Additional Past Medical History / Comment(s): Enlarged prostate History of Any Multi-Drug Resistant Organisms: None Reported Past Surgical History: Pacemaker Additional Past Surgical History / Comment(s): nasal surgery Type of Cardiac Device: Permanent Pacemaker Device Placement Date:: 2017 Past Psychological History: No Psychological Hx Reported Smoking Status: Never smoker Past Alcohol Use History: None Reported Past Drug Use History: None Reported - Past Family History Family Family Medical History: No Reported History Medications and Allergies Home Medications Medication Instructions Recorded Confirmed Type Amiodarone [Cordarone] 200 mg PO DAILY 01/03/19 01/19/19 History Aspirin [Adult Low Dose Aspirin EC] 81 mg PO DAILY 01/03/19 01/19/19 History Atorvastatin [Lipitor] 10 mg PO DAILY 01/03/19 01/19/19 History Furosemide [Lasix] 40 mg PO BID 01/03/19 01/19/19 History Insulin Glargine,Hum.rec.anlog 25 unit SQ BID PRN 01/03/19 01/19/19 History [Basaglar Kwikpen U-100] Metoprolol Succinate [Toprol XL] 100 mg PO BID 01/03/19 01/19/19 History Potassium Chloride ER [K-Dur 10] 10 meq PO DAILY 01/03/19 01/19/19 History amLODIPine [Norvasc] 5 mg PO DAILY 01/03/19 01/19/19 History metFORMIN HCL 1,000 mg PO BID 01/03/19 01/19/19 History HYDROcodone/APAP 5-325MG [[place] 1 tab PO Q6H PRN 01/19/19 01/19/19 History 5-325] Losartan Potassium 100 mg PO DAILY 01/19/19 01/19/19 History Allergies Allergy/AdvReac Type Severity Reaction Status Date / Time No Known Allergies Allergy Verified 01/19/19 09:34 Physical Exam Vitals: Vital Signs Temp Pulse Resp BP Pulse Ox 01/21/19 04:30 97.9 F 60 20 151/68 91 L 01/20/19 21:50 97.4 F L 57 L 20 155/56 91 L 01/20/19 12:32 99.1 F 61 20 122/53 94 L Intake and Output 01/20/19 01/20/19 01/21/19 14:59 22:59 06:59 Intake Total 200 100 Output Total 600 Balance -600 200 100 Intake: Oral 200 100 Output: Urine 600 Other: Voiding Method Urinal Urinal Urinal Incontinent Incontinent Incontinent # Voids 2 2 2 # Bowel Movements 0 0 Skin: Good color, texture, turgor. General: Medium build and comfortable appearance. Head: Normocephalic, atraumatic. Eyes: Symmetric. Pupils equal round. Ears: Symmetric. Hearing within normal limits. Mouth: Clear. Neck: Supple. Carotid without bruit. Cardiac: Regular rate and rhythm. Lungs: Clear anteriorly and posteriorly. Abdomen: Soft active nontender. Extremities: Normal tone. Right arm in sling. Neurological: Mental status: Alert, cooperative, pleasant. Cranial nerves: Symmetric facial tone and trapezius. Motor: Normal strength and isolation both legs and left arm. Right arm with giveaway weakness especially proximally. Sensation: Intact throughout. DTRs: Symmetric and equal throughout. Mobility: Moves in bed on own. Results CBC & Chem 7: 01/20/19 14:44 01/20/19 14:44 Labs: Abnormal Lab Results - Last 24 Hours (Table) 01/20/19 01/20/19 01/20/19 Range/Units 07:07 12:25 14:44 WBC 11.7 H (3.8-10.6) k/uL RBC 3.64 L (4.30-5.90) m/uL Hgb 10.8 L (13.0-17.5) gm/dL Hct 32.7 L (39.0-53.0) % Chloride (98-107) mmol/L BUN (9-20) mg/dL Creatinine (0.66-1.25) mg/dL Glucose (74-99) mg/dL POC Glucose (mg/dL) 111 H 135 H (75-99) mg/dL Calcium (8.4-10.2) mg/dL 01/20/19 01/20/19 01/20/19 Range/Units 14:44 17:10 21:21 WBC (3.8-10.6) k/uL RBC (4.30-5.90) m/uL Hgb (13.0-17.5) gm/dL Hct (39.0-53.0) % Chloride 108 H (98-107) mmol/L BUN 39 H (9-20) mg/dL Creatinine 2.27 H (0.66-1.25) mg/dL Glucose 123 H (74-99) mg/dL POC Glucose (mg/dL) 130 H 171 H (75-99) mg/dL Calcium 8.1 L (8.4-10.2) mg/dL Microbiology - Last 24 Hours (Table) 01/20/19 17:00 Urine Culture - Preliminary Urine,Clean Catch Assessment and Plan (1) Proximal humerus fracture Current Visit: Yes Status: Acute Code(s): S42.209A - UNSP FRACTURE OF UPPER END OF UNSP HUMERUS, INIT FOR CLOS FX SNOMED Code(s): 999603192 (2) Urinary retention Current Visit: No Status: Acute Code(s): R33.9 - RETENTION OF URINE, UNSPECIFIED SNOMED Code(s): 635358177 Plan: Impression: 1. Walking difficulty. 2. Proximal right humeral fracture. 3. Urinary retention. 4. Hypertension. 5. Diabetes. 6. Dyslipidemia. Comments and plan: At this time PT and OT are ongoing. Patient is anxious and eager for discharge today to [facility]. Have discussed possible inpatient rehab at [facility] but patient resistant.
[2019-01-21] MEDS: INSULIN ASPART (NovoLOG) 100 UNIT/ML VIAL SQ SCH ×4 (07:24→21:03)
[2019-01-21 07:25] LABS: Glucose,Whole Blood 89 mg/dL (75-99)
[2019-01-21] MEDS: PANTOPRAZOLE 40 MG TABLET PO SCH (08:02)
[2019-01-21] MEDS: AMIODARONE 200 MG TAB PO SCH (08:02)
[2019-01-21] MEDS: amLODIPine 5 MG TAB PO SCH (08:02)
[2019-01-21] MEDS: HEPARIN SODIUM,PORCINE 5,000 UNIT/ML 1 ML VIAL SQ SCH ×3 (08:02→22:46)
[2019-01-21] MEDS: ASPIRIN 81 MG PO SCH (08:02)
[2019-01-21] MEDS: INSULIN DETEMIR (LEVEMIR) 100 UNIT/ML SYR SQ SCH ×2 (08:02→21:02)
[2019-01-21] MEDS: ATORVASTATIN 10 MG TAB PO SCH (08:02)
[2019-01-21] MEDS: TAMSULOSIN 0.4 MG CAP.ER.24H PO SCH (08:02)
[2019-01-21] MEDS: METOPROLOL SUCCINATE (ER) 100 MG TAB.ER.24H PO SCH ×2 (08:02→21:02)
[2019-01-21] MEDS: HYDROcodone/APAP 5-325MG 1 EACH TAB PO PRN ×3 (09:01→21:02)
[2019-01-21 12:05] LABS: Glucose,Whole Blood 134 mg/dL (75-99)
--- NOTE | 2019-01-21 15:17 | P.PN ---
Subjective Progress Note Date: 01/21/19 Principal diagnosis: UTI Patient was seen and examined. No acute events overnight. Patient complains of improved pain in his right shoulder since admission. States that he was able to ambulate the hallways without difficulties today. He denies any chest pain, shortness of breath or palpitations. No nausea or vomiting. No fever or chills. Objective - Vital Signs Vital signs: Vital Signs Temp 97.7 F 01/21/19 15:00 Pulse 59 L 01/21/19 15:00 Resp 16 01/21/19 15:00 BP 155/65 01/21/19 15:00 Pulse Ox 94 L 01/21/19 15:00 Intake & Output 01/20/19 01/21/19 01/21/19 18:59 06:59 18:59 Intake Total 300 Output Total 600 Balance -600 300 Intake: Oral 300 Output: Urine 600 Other: Voiding Method Urinal Urinal Urinal Incontinent Incontinent Incontinent # Voids 2 2 5 # Bowel Movements 0 - Exam General: [non toxic], [breathing appears slightly labored especially when speaki ng in full sentences], [appears at stated age] Derm: [warm], [dry] Head: [atraumatic], [normocephalic], [symmetric] Eyes: [EOMI], [no lid lag], [anicteric sclera] Mouth: [no lip lesion], [mucus membranes moist] Cardiovascular: [S1S2 reg], [no murmur], [positive DP pulse bilateral], Lungs: [CTA bilateral], [no rhonchi, no rales] , [no accessory muscle use] Abdominal: [soft], [ nontender to palpation], [no guarding], [no appreciable organomegaly], [condom catheter intact] Ext: [no gross muscle atrophy], [no edema], [no contractures], [right upper extremity in sling limited range of motion due to pain] Neuro: [ CN II-XI grossly intact], [no focal neuro deficits] Psych: [Alert], [oriented], [appropriate affect] - Labs CBC & Chem 7: 01/20/19 14:44 01/20/19 14:44 Labs: Abnormal Lab Results - Last 24 Hours (Table) 01/20/19 01/20/19 01/20/19 Range/Units 14:44 14:44 17:10 WBC 11.7 H (3.8-10.6) k/uL RBC 3.64 L (4.30-5.90) m/uL Hgb 10.8 L (13.0-17.5) gm/dL Hct 32.7 L (39.0-53.0) % Chloride 108 H (98-107) mmol/L BUN 39 H (9-20) mg/dL Creatinine 2.27 H (0.66-1.25) mg/dL Glucose 123 H (74-99) mg/dL POC Glucose (mg/dL) 130 H (75-99) mg/dL Calcium 8.1 L (8.4-10.2) mg/dL 01/20/19 01/21/19 Range/Units 21:21 12:03 WBC (3.8-10.6) k/uL RBC (4.30-5.90) m/uL Hgb (13.0-17.5) gm/dL Hct (39.0-53.0) % Chloride (98-107) mmol/L BUN (9-20) mg/dL Creatinine (0.66-1.25) mg/dL Glucose (74-99) mg/dL POC Glucose (mg/dL) 171 H 134 H (75-99) mg/dL Calcium (8.4-10.2) mg/dL Microbiology - Last 24 Hours (Table) 01/20/19 17:00 Urine Culture - Preliminary Urine,Clean Catch Assessment and Plan Assessment: Assessment and Plan Acute kidney injury, rule out obstructive uropathy with history of BPH Urinary tract infection, patient with leukocytosis and foul-smelling urine Hypertension Diabetes mellitus Anemia Proximal right humeral fracture Creatinine 3.14-2.27. Bladder and kidney ultrasound shows no hydronephrosis or nephrolithiasis, hypoechoic area posterior to the bladder. Urology consulted, recommends no further workup as this hypoechoic area is known to be due to BPH. Plans: Decreased IVF to normal saline at 50 mL per hour. Avoid nephrotoxins. Repeat BMP today. UA shows no leukocyte esterase or nitrites. Foul-smelling urine. Patient with leukocytosis of 17.4, improved to 11.7. Afebrile. Does not meet sepsis criteria. Plans: Start Rocephin. Follow urine culture. BP 155/65. Plans: Continue amlodipine, metoprolol. Monitor vitals, adjust medications as necessary. [id number] glucose 134. Plans: Continue Levemir 25 units twice a day. Regular Accu-Cheks. Hypoglycemic precautions. Hemoglobin 10.8. Normocytic. Unknown significance. Decreasing hemoglobin likely due to dilution. Plans: Transfuse if hemoglobin less than 7. Continue to monitor. Patient unable to take care of ADLs, IADLs. Plans: PT and OT for rehab placement. Social work working on [facility]. Earliest discharge is on Thursday.
--- NOTE | 2019-01-21 15:38 | XR ---
EXAMINATION TYPE: XR chest 1V portable DATE OF EXAM: 01/21/2019 COMPARISON: Prior chest x-ray 01/17/2019 HISTORY: Shortness breath TECHNIQUE: Single frontal view of the chest is obtained. FINDINGS: Bones are stable. Heart is enlarged. There is a generator in left pectoral region, leads ar e present right atrium and ventricle. Interstitium is increased. No pneumothorax or pleural effusion. IMPRESSION: Correlate for pulmonary venous hypertension and interstitial edema.
[2019-01-21] MEDS: FUROSEMIDE 10 MG/ML 4 ML VIAL IV SCH (17:01)
[2019-01-21 17:24] LABS: Glucose,Whole Blood 98 mg/dL (75-99)
[2019-01-21] MEDS ORDERED: FUROSEMIDE 10 MG/ML 4 ML VIAL IV SCH (21:00)
[2019-01-21 21:07] LABS: Glucose,Whole Blood 163 mg/dL (75-99)
--- NOTE | 2019-01-21 22:03 | P.GSCN ---
History of Present Illness Consult date: 01/21/19 Reason for Consult: BPH History of present illness: Mr. Hoffmann is 73 yo male that was admitted to [facility] January 19 history of fall and right shoulder pain. X-ray revealed proximal humeral fracture and underwent slinging only. Patient also had NICKIE, RBUS was obtained which showed no hydronephrosis and hypoechoic area in the posterior aspect of the bladder. Of note he underwent a recent cystoscopy which showed enalrged prostate with median lobe protrusion into the bladder. Patient has bothersome obstructive symptoms and recurrent Urinary retention Review of Systems - Constitutional Denies chills, Denies fever - Cardiovascular Denies chest pain, Denies leg edema - Genitourinary Denies dysuria, Denies flank pain, Denies hematuria - Musculoskeletal Reports fractures, Reports frequent falls - Neurological Denies confusion, Denies weakness - Psychiatric Denies confusion Past Medical History Past Medical History: Diabetes Mellitus, Hyperlipidemia, Hypertension, Prostate Disorder Additional Past Medical History / Comment(s): Enlarged prostate History of Any Multi-Drug Resistant Organisms: None Reported Past Surgical History: Pacemaker Additional Past Surgical History / Comment(s): nasal surgery Type of Cardiac Device: Permanent Pacemaker Device Placement Date:: 2017 Past Psychological History: No Psychological Hx Reported Smoking Status: Never smoker Past Alcohol Use History: None Reported Past Drug Use History: None Reported - Past Family History Family Family Medical History: No Reported History Medications and Allergies Home Medications Medication Instructions Recorded Confirmed Type Amiodarone [Cordarone] 200 mg PO DAILY 01/03/19 01/19/19 History Aspirin [Adult Low Dose Aspirin EC] 81 mg PO DAILY 01/03/19 01/19/19 History Atorvastatin [Lipitor] 10 mg PO DAILY 01/03/19 01/19/19 History Furosemide [Lasix] 40 mg PO BID 01/03/19 01/19/19 History Insulin Glargine,Hum.rec.anlog 25 unit SQ BID PRN 01/03/19 01/19/19 History [Basaglar Kwikpen U-100] Metoprolol Succinate [Toprol XL] 100 mg PO BID 01/03/19 01/19/19 History Potassium Chloride ER [K-Dur 10] 10 meq PO DAILY 01/03/19 01/19/19 History amLODIPine [Norvasc] 5 mg PO DAILY 01/03/19 01/19/19 History metFORMIN HCL 1,000 mg PO BID 01/03/19 01/19/19 History HYDROcodone/APAP 5-325MG [[place] 1 tab PO Q6H PRN 01/19/19 01/19/19 History 5-325] Losartan Potassium 100 mg PO DAILY 01/19/19 01/19/19 History Allergies Allergy/AdvReac Type Severity Reaction Status Date / Time No Known Allergies Allergy Verified 01/19/19 09:34 Surgical - Exam Vital Signs Temp Pulse Resp BP Pulse Ox 98.2 F 61 18 125/59 92 L 01/19/19 02:01 01/19/19 02:01 01/19/19 02:01 01/19/19 02:01 01/19/19 02:01 - General well developed, well nourished, no distress - ENT normal mucosa - Respiratory normal expansion, normal respiratory effort - Abdomen Abdomen: soft, non tender - Psychiatric oriented to time, oriented to person, oriented to place Results - Labs 01/20/19 14:44 01/20/19 14:44 Abnormal Lab Results - Last 24 Hours (Table) 01/21/19 01/21/19 Range/Units 12:03 21:02 POC Glucose (mg/dL) 134 H 163 H (75-99) mg/dL Microbiology - Last 24 Hours (Table) 01/20/19 17:00 Urine Culture - Preliminary Urine,Clean Catch Assessment and Plan Assessment: 73 yo male admitted with NICKIE, and fall resulting in humerus fracture. His workup in ED also demonstrated NICKIE, since admission his creat is trending down. RBUS ultrasound demonstrated no hydronephrosis and hypoechoic area in the bladder. -The hypoechoic are in bladder on ultrasound is the enlarged prostate, patient had a recent cystoscopy demonstrated an enlarged prostate -F/U on urine culture are treat based on susceptibility if culture is positive -Patient is tentatively scheduled for TURP on 02/07 pending cardiac clearance
[2019-01-22] MEDS: FUROSEMIDE 10 MG/ML 4 ML VIAL IV SCH (05:16)
[2019-01-22] MEDS: MORPHINE SULFATE 4 MG/ML SYRINGE IV PRN (05:16)
[2019-01-22 05:18] VITALS: BP 182/68; PULSE 59; RESP 16; TEMP 97.4
[2019-01-22 07:13] LABS: Glucose,Whole Blood 61 mg/dL (75-99)
[2019-01-22] MEDS: INSULIN ASPART (NovoLOG) 100 UNIT/ML VIAL SQ SCH (07:23)
[2019-01-22] MEDS: PANTOPRAZOLE 40 MG TABLET PO SCH (07:32)
[2019-01-22] MEDS: HEPARIN SODIUM,PORCINE 5,000 UNIT/ML 1 ML VIAL SQ SCH (07:32)
[2019-01-22] MEDS: AMIODARONE 200 MG TAB PO SCH (07:32)
[2019-01-22] MEDS: INSULIN DETEMIR (LEVEMIR) 100 UNIT/ML SYR SQ SCH (07:32)
[2019-01-22] MEDS: TAMSULOSIN 0.4 MG CAP.ER.24H PO SCH (07:32)
[2019-01-22] MEDS: METOPROLOL SUCCINATE (ER) 100 MG TAB.ER.24H PO SCH (07:32)
[2019-01-22] MEDS: amLODIPine 5 MG TAB PO SCH (07:33)
[2019-01-22] MEDS: HYDROcodone/APAP 5-325MG 1 EACH TAB PO PRN (07:33)
[2019-01-22] MEDS: ATORVASTATIN 10 MG TAB PO SCH (07:33)
[2019-01-22] MEDS: ASPIRIN 81 MG PO SCH (07:33)
[2019-01-22 07:36] LABS: Glucose,Whole Blood 66 mg/dL (75-99)
[2019-01-22 08:11] LABS: Calcium 8.6 mg/dL (8.4-10.2); Potassium 3.8 mmol/L (3.5-5.1)
[2019-01-22 08:12] LABS: Glucose,Whole Blood 122 mg/dL (75-99)
--- NOTE | 2019-01-22 09:06 | P.DS ---
Providers Date of admission: 01/19/19 04:39 Expected date of discharge: 01/22/19 Attending physician: Americo Parsons MD Consults: 01/19/19 12:25 Consult Physician Routine Consulting Provider: Celso Garcia Consult Reason/Comments: known to patient, is CT necessary? Do you want consulting provider notified?: Yes 01/20/19 16:59 Consult Physician Routine Consulting Provider: Pool Dior Consult Reason/Comments: inpatient rehab Do you want consulting provider notified?: Yes Primary care physician: Chente Prior Hospital Course: 73-year-old male with PMH of hypertension, diabetes and unknown arrhythmia status post pacemaker initially presented to the ED after a fall 2 days ago when he tripped on a rug. He was found to have a proximal right humeral fracture and placed in an arm sling and discharged with follow-up with orthopedic surgery. Since then, patient has had difficulties with his ADLs and IADLs. Patient was admitted for possible rehab placement. Patient also reported one to 2 week history of urinary retention, for which he was evaluated in the ED, found to be retaining 900 mL of urine, Saenz catheter was placed and he had a follow-up with urology who did a cystoscopy to rule out bladder stones. Patient was told that he has enlarged prostate. Patient was diagnosed with acute kidney injury and plan was to rule out obstructive uropathy. His creatinine on admission was 3.14. Bladder and kidney ultrasound was done which showed no hydronephrosis or nephrolithiasis and hypoechoic area in the posterior of the bladder. CT abdomen and pelvis was recommended for evaluation of this hypoechoic area. Urology was consulted and recommended no further workup along with CT as this was known to be due to BPH. Patient was initially hydrated with normal saline at 130 mL/h. His creatinine was 2.03 at the time of discharge. Bladder scan was done which shows 30 mL retained urine. Patient had concerns of dysuria as well. Urinalysis showed no leukocyte esterase or nitrites. His urine though was foul-smelling. Patient had leukocytosis of 17.4 which improved to 11.7 at the time of discharge. He did not meet sepsis criteria. He was given Rocephin during his hospitalization. Urine culture was negative at the time of discharge. On 01/21/2019, patient was noted to appear short of breath despite having no complaints. Chest x-ray was ordered which showed interstitial fluid. This was likely due to the IVF that was given to him throughout his hospitalization. He was given 2 doses of Lasix 40 mg IV and converted to oral at discharge. Patient was noted to be saturating in the mid 90s throughout his hospitalization. Patient was seen and examined. No acute events overnight. Patient denies any chest pain, shortness of breath or palpitations. No nausea or vomiting. No fever or chills. He is looking forward to going to rehab. He does complain of right-sided shoulder pain but well-controlled with [place]. General: [non toxic], [no distress], [appears at stated age] Derm: [warm], [dry] Head: [atraumatic], [normocephalic], [symmetric] Eyes: [EOMI], [no lid lag], [anicteric sclera] Mouth: [no lip lesion], [mucus membranes moist] Cardiovascular: [S1S2 reg], [no murmur], [positive DP pulse bilateral], Lungs: [CTA bilateral], [no rhonchi, no rales] , [no accessory muscle use] Abdominal: [soft], [ nontender to palpation], [no guarding], [no appreciable organomegaly], [condom catheter intact] Ext: [no gross muscle atrophy], [no edema], [no contractures], [right upper extremity in sling limited range of motion due to pain] Neuro: [no focal neuro deficits] Psych: [Alert], [oriented], [appropriate affect] Assessment and Plan Acute kidney injury, rule out obstructive uropathy with history of BPH Urinary tract infection, patient with leukocytosis and foul-smelling urine Hypertension Diabetes mellitus Anemia Proximal right humeral fracture Creatinine 3.14-2.27-2.03. Bladder and kidney ultrasound shows no hydroneph rosis or nephrolithiasis, hypoechoic area posterior to the bladder. Urology consulted, recommends no further workup as this hypoechoic area is known to be due to BPH. Plans: DC IVF and encourage hydration by mouth. Avoid nephrotoxins. Patient likely has component of chronic kidney disease which will need to be evaluated by nephrology in the future. He does not have any metabolic acidosis. UA shows no leukocyte esterase or nitrites. Foul-smelling urine. Patient with leukocytosis of 17.4, improved to 11.7. Afebrile. Does not meet sepsis criteria. Plans: Urine cultures negative. He has completed 4 days of Rocephin. No more antibiotics on discharge. BP 182/60.. Plans: Continue amlodipine, metoprolol. Monitor vitals, adjust medications as necessary. Fqihp-er-fmvs glucose 122. Plans: Continue Levemir 25 units twice a day. Regular Accu-Cheks. Hypoglycemic precautions. Hemoglobin 10.8. Normocytic. Unknown significance. Decreasing hemoglobin likely due to dilution. Plans: Transfuse if hemoglobin less than 7. Continue to monitor. Patient unable to take care of ADLs, IADLs. Plans: PT and OT for rehab placement. Social work working on [facility]. Earliest discharge is on Thursday. [Patient with no complaints. He denies any shortness of breath. He is saturating in 90s on room air. He is received 2 doses of Lasix. Can convert to by mouth. We will discharge the patient to [facility] today. Repeat chest x-ray in 3 days. Repeat BMP in 3 days. Follow-up with nephrology outpatient.] Pertinent Studies: Abdomen and bladder ultrasound, venous duplex, chest x-ray Patient Condition at Discharge: Stable Plan - Discharge Summary New Discharge Prescriptions: New Tamsulosin [Fl[facility]] [facility]er.24h Continue Aspirin [Adult Low Dose Aspirin EC] 81 mg PO DAILY Metoprolol Succinate [Toprol XL] 100 mg PO BID metFORMIN HCL 1,000 mg PO BID amLODIPine [Norvasc] 5 mg PO DAILY Furosemide [Lasix] 40 mg PO BID Atorvastatin [Lipitor] 10 mg PO DAILY Amiodarone [Cordarone] 200 mg PO DAILY Insulin Glargine,Hum.rec.anlog [Basaglar Kwikpen U-100] 25 unit SQ BID PRN PRN Reason: Blood Sugar - High Losartan Potassium 100 mg PO DAILY HYDROcodone/APAP 5-325MG [[place] 5-325] 1 tab PO Q6H PRN #12 tab PRN Reason: Pain Discontinued Potassium Chloride ER [K-Dur 10] 10 meq PO DAILY Discharge Medication List Amiodarone [Cordarone] 200 mg PO DAILY 01/03/19 [History] Aspirin [Adult Low Dose Aspirin EC] 81 mg PO DAILY 01/03/19 [History] Atorvastatin [Lipitor] 10 mg PO DAILY 01/03/19 [History] Furosemide [Lasix] 40 mg PO BID 01/03/19 [History] Insulin Glargine,Hum.rec.anlog [Basaglar Kwikpen U-100] 25 unit SQ BID PRN 01/03/19 [History] Metoprolol Succinate [Toprol XL] 100 mg PO BID 01/03/19 [History] amLODIPine [Norvasc] 5 mg PO DAILY 01/03/19 [History] metFORMIN HCL 1,000 mg PO BID 01/03/19 [History] Losartan Potassium 100 mg PO DAILY 01/19/19 [History] HYDROcodone/APAP 5-325MG [[place] 5-325] 1 tab PO Q6H PRN #12 tab 01/22/19 [Rx] Tamsulosin [Flomax] 0.4 mg PO PC-BRKFST #30 cap.er.24h 01/22/19 [Rx] Follow up Appointment(s)/Referral(s): Chente Sanchez DO [Primary Care Provider] - 1-2 days Kingston Melgoza DO [STAFF PHYSICIAN] - 1 Week Celso Garcia MD [STAFF PHYSICIAN] - 1 Week Ambulatory/Diagnostic Orders: Basic Metabolic Panel [LAB.AMB] Time Frame: 3 Days, Location: None Selected Complete Blood Count w/diff [LAB.AMB] Location: None Selected XR chest 2V [RAD.AMB] Location: None Selected Activity/Diet/Wound Care/Special Instructions: Continue to take your [place] as prescribed by orthopedics. Follow-up with your primary care physician for reevaluation of her high white blood cell count prior to your planned surgical procedure with urology. Follow-up with PCP within 3 days of discharge. Repeat CBC in 3 days. Repeat BMP in 3 days. Repeat chest x-ray in 3 days. Follow-up with urology within 1 week. Follow up with nephrology within 1 week. Discharge Disposition: TRANSFER TO SNF/ECF
== END 2019-01-22 10:50 | DRG 683 ==
LOC: EC 01:58 → OBSVTOIN 04:39 → 4MS4W 04:39
PROVIDERS: ADMIT Internal Medicine; ATTEND Internal Medicine
DX: N17.9 Acute kidney failure, unspecified (principal); S42.201A Unspecified fracture of upper end of right humerus, initial encounter for closed fracture; N39.0 Urinary tract infection, site not specified; W01.0XXA Fall on same level from slipping, tripping and stumbling without subsequent striking against object, initial encounter; N40.1 Benign prostatic hyperplasia with lower urinary tract symptoms; R33.8 Other retention of urine; N13.9 Obstructive and reflux uropathy, unspecified; M79.89 Other specified soft tissue disorders; N40.0 Benign prostatic hyperplasia without lower urinary tract symptoms; N18.9 Chronic kidney disease, unspecified; E11.22 Type 2 diabetes mellitus with diabetic chronic kidney disease; I12.9 Hypertensive chronic kidney disease with stage 1 through stage 4 chronic kidney disease, or unspecified chronic kidney disease; D64.9 Anemia, unspecified; E78.5 Hyperlipidemia, unspecified; I10 Essential (primary) hypertension; E11.9 Type 2 diabetes mellitus without complications; Z95.0 Presence of cardiac pacemaker; Y92.099 Unspecified place in other non-institutional residence as the place of occurrence of the external cause; Z79.899 Other long term (current) drug therapy; Z79.82 Long term (current) use of aspirin; Z79.84 Long term (current) use of oral hypoglycemic drugs; Z79.4 Long term (current) use of insulin; Z80.9 Family history of malignant neoplasm, unspecified
CPT/HCPCS: 71045; 76770; 80048; 80053; 81003; 85025; 85027; 87086; 96372; 99284

== ENCOUNTER 2019-03-08 09:33 | Emergency (ER) | payer MEDICARE, BC ==
[2019-03-08 10:08] VITALS: BP 136/58; PULSE 60; TEMP 98.4
--- NOTE | 2019-03-08 10:37 | ED ---
Fall HPI - General Chief Complaint: Fall Stated Complaint: rt arm pain Time Seen by Provider: 03/08/19 10:18 Source: patient Mode of arrival: EMS - History of Present Illness Initial Comments: Patient is a 73-year-old male presenting to emergency Department complaining of right shoulder pain after he fell today. Patient states he has a history of a proximal humerus fracture that happened in December. Patient states he lost his footing today and fell off to his right side hitting his right shoulder and also hitting the head on a carpeted floor. Patient states his head does not hurt and he has no neck pain. Patient denies dizziness, nausea, vomiting. He has no other complaints other than his right shoulder pain. Upon arrival to ER, his vital signs are stable. - Related Data Home Medications Medication Instructions Recorded Confirmed Amiodarone [Cordarone] 200 mg PO DAILY 01/03/19 02/01/19 Atorvastatin [Lipitor] 10 mg PO DAILY 01/03/19 02/01/19 Furosemide [Lasix] 40 mg PO BID 01/03/19 02/01/19 Insulin Glargine,Hum.rec.anlog 25 unit SQ DAILY 01/03/19 02/01/19 [Basaglar Kwikpen U-100] Metoprolol Succinate [Toprol XL] 100 mg PO BID 01/03/19 02/01/19 amLODIPine [Norvasc] 5 mg PO DAILY 01/03/19 02/01/19 metFORMIN HCL 1,000 mg PO BID 01/03/19 02/01/19 Losartan Potassium 100 mg PO DAILY 01/19/19 02/01/19 Bisacodyl [Dulcolax] 10 mg RECTAL DAILY PRN 02/01/19 02/01/19 Caldasene Powder 1 applicate TOPICAL BID 02/01/19 02/01/19 Omar 1 applicate TOPICAL BID 02/01/19 02/01/19 Insulin Glargine [Lantus] 12 unit SQ HS 02/01/19 02/01/19 Magnesium Hydroxide [Milk of 30 ml PO DIRECTED PRN 02/01/19 02/01/19 Magnesia Concentrate] Menthol [Biofreeze] 1 applic TOPICAL DIRECTED PRN 02/01/19 02/01/19 Na Phos,M-B/Na Phos,Di-Ba [Fleet 133 ml RECTAL DIRECTED PRN 02/01/19 02/01/19 Adult] Tamsulosin [Flomax] 0.4 mg PO DAILY 02/01/19 02/01/19 Previous Rx's Medication Instructions Recorded HYDROcodone/APAP 5-325MG [[place] 1 tab PO Q6H PRN #12 tab 01/22/19 5-325] Allergies Allergy/AdvReac Type Severity Reaction Status Date / Time No Known Allergies Allergy Verified 03/08/19 10:04 Review of Systems ROS Statement: Those systems with pertinent positive or pertinent negative responses have been documented in the HPI. ROS Other: All systems not noted in ROS Statement are negative. Past Medical History Past Medical History: Diabetes Mellitus, Hyperlipidemia, Hypertension, Prostate Disorder Additional Past Medical History / Comment(s): Enlarged prostate History of Any Multi-Drug Resistant Organisms: None Reported Past Surgical History: Pacemaker Additional Past Surgical History / Comment(s): nasal surgery Type of Cardiac Device: Permanent Pacemaker Device Placement Date:: 2017 Past Psychological History: No Psychological Hx Reported Smoking Status: Never smoker Past Alcohol Use History: None Reported Past Drug Use History: None Reported - Past Family History Family Family Medical History: No Reported History General Exam - General Exam Comments Initial Comments: GENERAL: Well-appearing, well-nourished and in no acute distress. HEAD: Atraumatic, normocephalic. No hematoma, no signs of basal skull fracture. EYES: Pupils equal round and reactive to light, extraocular movements intact, sclera anicteric, conjunctiva are normal. ENT: TMs normal, nares patent, oropharynx clear without exudates. Moist mucous membranes. NECK: Normal range of motion, supple without lymphadenopathy or JVD. No midline tenderness. LUNGS: Breath sounds clear to auscultation bilaterally and equal. No wheezes rales or rhonchi. HEART: Regular rate and rhythm without murmurs, rubs or gallops. ABDOMEN: Soft, nontender, normoactive bowel sounds. No guarding, no rebound. No masses appreciated. EXTREMITIES: Pain with palpation of the anterior and lateral aspect of the right shoulder. No range of motion secondary to pain. Patient is neurovascular intact. NEUROLOGICAL: Cranial nerves II through XII grossly intact. Normal speech, normal gait. PSYCH: Normal mood, normal affect. SKIN: Warm, Dry, normal turgor, no rashes or lesions noted. Limitations: no limitations Course Vital Signs 03/08/19 10:05 Temperature 98.4 F Pulse Rate 60 Respiratory 18 Rate Blood Pressure 136/58 O2 Sat by Pulse 96 Oximetry Medical Decision Making - Medical Decision Making Patient is a 73-year-old male presenting of right shoulder pain after he fell today. Patient did hit his head on a carpeted ground however he is refusing CT of the head and neck, upon my recommendation. Patient denies head or neck pain. X-rays of the right shoulder reveal a displaced comminuted fracture involving the proximal humerus. Patient will be placed in a sling and will follow-up with his orthopedic doctor. Patient will be given a starter pack of Ultram for pain. He is in agreement with this plan of care. Case discussed with Dr. Amos. - Lab Data Lab Results 03/08/19 Range/Units 10:53 POC Glucose (mg/dL) 182 H (75-99) mg/dL POC Glu [employer] Worker ID Helene Harrell Disposition Clinical Impression: Fall, Closed fracture of right proximal humerus Disposition: HOME SELF-CARE Condition: Stable Instructions (If sedation given, give patient instructions): Proximal Humerus Fracture (ED) Additional Instructions: Please return to the Emergency Department if symptoms worsen or any other concerns. Follow up with orthopedics as discussed. Keep arm in sling. Is patient prescribed a controlled substance at d/c from ED?: No Referrals: George Whitlock DO [Primary Care Provider] - 1-2 days Rios Carson MD [STAFF PHYSICIAN] - 1-2 days
--- NOTE | 2019-03-08 10:49 | XR ---
EXAMINATION TYPE: XR humerus RT DATE OF EXAM: 03/08/2019 COMPARISON: NONE HISTORY: Pain TECHNIQUE: 2 views submitted. FINDINGS: There is a displaced comminuted fracture involving the neck of the humerus. Diffuse osteopenia. Arthr opathy of the shoulder. IMPRESSION: 1. Displaced comminuted fracture involving the proximal humerus.
--- NOTE | 2019-03-08 10:53 | XR ---
EXAMINATION TYPE: XR shoulder limited RT DATE OF EXAM: 03/08/2019 COMPARISON: 01/17/2019 HISTORY: Pain TECHNIQUE: Three views are submitted. FINDINGS: The comminuted displaced fracture of the neck of the humerus. This appears to be of increased displac ement relative to the prior exam. Diffuse osteopenia noted. IMPRESSION: 1. Comminuted displaced fracture of the neck of the humerus appears to be increased displacement rela tive to the prior exam.
[2019-03-08 10:55] LABS: Glucose,Whole Blood 182 mg/dL (75-99)
[2019-03-08] MEDS ORDERED: traMADol 50 MG STARTER PACK 3 TAB BTL PO STA (11:14)
[2019-03-08 11:27] VITALS: RESP 20
== END 2019-03-08 11:27 | disposition home or self-care (01) ==
LOC: EC 09:33
DX: S42.201A Unspecified fracture of upper end of right humerus, initial encounter for closed fracture (principal); E11.9 Type 2 diabetes mellitus without complications; E78.5 Hyperlipidemia, unspecified; I10 Essential (primary) hypertension; N40.0 Benign prostatic hyperplasia without lower urinary tract symptoms; Z95.0 Presence of cardiac pacemaker; Z79.4 Long term (current) use of insulin; Z79.899 Other long term (current) drug therapy; W19.XXXA Unspecified fall, initial encounter
CPT/HCPCS: 36415; 99284

== ENCOUNTER 2019-03-11 19:08 | Inpatient (IN) | payer MEDICARE, BC ==
[2019-03-11] MEDS ORDERED: HYDROmorphone 0.5 MG/0.5 ML SYRINGE IVP STA (20:03)
--- NOTE | 2019-03-11 20:47 | XR ---
EXAMINATION TYPE: XR chest 1V DATE OF EXAM: 03/11/2019 COMPARISON: 01/21/2019 HISTORY: Short of breath TECHNIQUE: FINDINGS: Heart is enlarged. There is mild pulmonary vascular congestion. There is a left axillary pa cemaker. There is no definite pleural effusion. There is comminuted right humeral neck fracture with deformity. IMPRESSION: Mild heart failure unchanged compared to old exam. No change in the displaced humeral ne ck fracture.
--- NOTE | 2019-03-11 20:48 | XR ---
EXAMINATION TYPE: XR Hip Complete RT DATE OF EXAM: 03/11/2019 COMPARISON: NONE HISTORY: Pain TECHNIQUE: 2 views FINDINGS: There is an acute impacted intertrochanteric fracture right femur. There is no dislocation. IMPRESSION: Acute fracture of the intertrochanteric right femur.
--- NOTE | 2019-03-11 20:50 | XR ---
EXAMINATION TYPE: XR shoulder complete RT DATE OF EXAM: 03/11/2019 COMPARISON: 03/08/2019 HISTORY: Pain TECHNIQUE: 2 views FINDINGS: There is slightly impacted comminuted humeral neck fracture. There is no dislocation. IMPRESSION: Impacted comminuted humeral neck fracture without significant change in position compared to last exam.
--- NOTE | 2019-03-11 20:52 | CT ---
EXAMINATION TYPE: CT brain wo con DATE OF EXAM: 03/11/2019 COMPARISON: Fall. Pain. HISTORY: Fall from standing position CT DLP: 1142.4 mGycm Automated exposure control for dose reduction was used. There is cerebral cortical atrophy. There is patchy hypodensity in the periventricular white matter. There is no mass effect nor midline shift. There is no sign of intracranial hemorrhage. Calvarium is intact. Skull base is intact. IMPRESSION: Cerebral atrophy and chronic small vessel ischemia. No acute intracranial abnormality.
--- NOTE | 2019-03-11 21:16 | ED ---
General Adult HPI - General Chief complaint: Fall Stated complaint: Fall, R Hip Pain Time Seen by Provider: 03/11/19 19:23 Source: patient, EMS Mode of arrival: EMS Limitations: no limitations - History of Present Illness Initial comments: Dictation was produced using [employer] dictation software. please excuse any grammatical, word or spelling errors. Chief Complaint: 73-year-old male brought in from [facility] after fall. He presents today with right hip pain. History of Present Illness: 73-year-old male he fell from a standing position. Patient states that after the fall he has experience right sided hip pain. Patient fractured his proximal humerus sometime ago. He follows up with orthopedic surgery for his right shoulder. Patient states he tripped when he fell. Denies any numb single paresthesias to the lower extremities. Patient received 10 mg of IV morphine en route to the emergency department The ROS documented in this emergency department record has been reviewed and confirmed by me. Those systems with pertinent positive or negative responses have been documented in the HPI. All other systems are other negative and/or noncontributory. PHYSICAL EXAM: General Impression: Alert and oriented x3, acute distress secondary to pain HEENT: Normocephalic atraumatic, extra-ocular movements intact, pupils equal and reactive to light bilaterally, mucous membranes moist. Cardiovascular: Heart regular rate and rhythm, S1&S2 audible, no murmurs, rubs or gallops Chest: Lungs clear to auscultation bilaterally, no rhonchi, no wheeze, no rales Abdomen: Bowel sounds present, abdomen soft, non-tender, non-distended, no organomegaly Musculoskeletal: Pulses present and equal in all extremities, fullness and ecc hymoses to the right proximal humerus, tenderness to the right hip Motor: no focal deficits noted Neurological: CN II-XII grossly intact, no focal motor or sensory deficits noted Skin: Intact with no visualized rashes Psych: Normal affect and mood ED course: 73 yo male presents with right hip pain after fall. Patient is currently undergoing outpatient management for proximal humerus fracture re cently. Laboratory evaluation obtained. Leukocytosis 6 and 0.8 likely secondary to stress. Hemoglobin is 9.2. Slightly decrease since last month. Coag panel is unremarkable. Metabolic panel is at baseline. Patient's history of chronic kidney disease. Urinalysis is negative. Chest x-ray shows no acute processes there is stable findings seen on his humeral neck fracture. Shoulder x-ray sh ows impacted she will neck fracture without significant change compared to last exam [address] is unremarkable for any traumatic injuries. Hip x- ray shows acute intertrochanteric right femur fracture. Patient given analgesia. Discussed patient case with physician assistant tennis professional for Dr. Dr. Brown. They're agreeable with admission. Medicine to be consulted. Patient be nothing by mouth at midnight. EKG interpretation: Ventricular rate 60, AV paced rhythm,. Interval to 76, care is 142, QTC C5 52. No NM prolongation, no QTC prolongation, no ST or T-wave changes noted. - Related Data Home Medications Medication Instructions Recorded Confirmed RX: Amiodarone [Cordarone] 200 mg PO DAILY 01/03/19 03/11/19 RX: Atorvastatin [Lipitor] 10 mg PO HS 01/03/19 03/11/19 RX: Furosemide [Lasix] 40 mg PO PC-SUPPER 01/03/19 03/11/19 RX: Insulin Glargine,Hum.rec.anlog 44 unit SQ HS 01/03/19 03/11/19 [Basaglar Kwikpen U-100] RX: Metoprolol Succinate [Toprol 100 mg PO BID 01/03/19 03/11/19 XL] RX: amLODIPine [Norvasc] 5 mg PO DAILY 01/03/19 03/11/19 RX: metFORMIN HCL 1,000 mg PO BID 01/03/19 03/11/19 RX: Losartan Potassium 100 mg PO DAILY 01/19/19 03/11/19 Menthol [Biofreeze] 1 applic TOPICAL HS PRN 02/01/19 03/11/19 Tamsulosin [Flomax] 0.4 mg PO DAILY 02/01/19 03/11/19 Aspirin [Adult Low Dose Aspirin EC] 81 mg PO DAILY 03/11/19 03/11/19 Furosemide [Lasix] 80 mg PO DAILY 03/11/19 03/11/19 INSULIN ASPART (NovoLOG) [NovoLOG 5 unit SQ AC-TID 03/11/19 03/11/19 (formulary)] INSULIN ASPART (NovoLOG) [NovoLOG See Protocol SQ AC-TID 03/11/19 03/11/19 (formulary)] Latanoprost [Xalatan 0.005%] 1 drop BOTH EYES HS 03/11/19 03/11/19 Previous Rx's Medication Instructions Recorded RX: HYDROcodone/APAP 5-325MG 1 tab PO Q6H PRN #12 tab 01/22/19 [[place] 5-325] Allergies Allergy/AdvReac Type Severity Reaction Status Date / Time No Known Allergies Allergy Verified 03/11/19 21:53 Review of Systems ROS Statement: Those systems with pertinent positive or pertinent negative responses have been documented in the HPI. ROS Other: All systems not noted in ROS Statement are negative. Past Medical History Past Medical History: Diabetes Mellitus, Hyperlipidemia, Hypertension, Prostate Disorder Additional Past Medical History / Comment(s): Enlarged prostate History of Any Multi-Drug Resistant Organisms: None Reported Past Surgical History: Pacemaker Additional Past Surgical History / Comment(s): nasal surgery Type of Cardiac Device: Permanent Pacemaker Device Placement Date:: 2017 Past Psychological History: No Psychological Hx Reported Smoking Status: Never smoker Past Alcohol Use History: None Reported Past Drug Use History: None Reported - Past Family History Family Family Medical History: No Reported History General Exam Limitations: no limitations Course Vital Signs 03/11/19 19:11 Temperature 98.3 F Pulse Rate 60 Respiratory 18 Rate Blood Pressure 136/61 Medical Decision Making - Lab Data Result diagrams: 03/11/19 20:52 03/11/19 20:52 Lab Results 03/11/19 03/11/19 03/11/19 Range/Units 20:52 20:52 20:52 WBC 16.8 H (3.8-10.6) k/uL RBC 3.25 L (4.30-5.90) m/uL Hgb 9.2 L D (13.0-17.5) gm/dL Hct 28.7 L (39.0-53.0) % MCV 88.3 (80.0-100.0) fL MCH 28.4 (25.0-35.0) pg MCHC 32.1 (31.0-37.0) g/dL RDW 14.5 (11.5-15.5) % Plt Count 151 (150-450) k/uL Neutrophils % 89 % Lymphocytes % 6 % Monocytes % 4 % Eosinophils % 1 % Basophils % 0 % Neutrophils # 15.0 H (1.3-7.7) k/uL Lymphocytes # 1.0 (1.0-4.8) k/uL Monocytes # 0.6 (0-1.0) k/uL Eosinophils # 0.1 (0-0.7) k/uL Basophils # 0.0 (0-0.2) k/uL PT 11.9 (9.0-12.0) sec INR 1.1 (<1.2) APTT 20.1 L (22.0-30.0) sec VBG pH (7.31-7.41) VBG pCO2 (37-51) mmHg VBG HCO3 (24-28) mmol/L Sodium 139 (137-145) mmol/L Potassium 4.2 (3.5-5.1) mmol/L Chloride 105 (98-107) mmol/L Carbon Dioxide 26 (22-30) mmol/L Anion Gap 8 mmol/L BUN 31 H (9-20) mg/dL Creatinine 2.01 H (0.66-1.25) mg/dL Est GFR (CKD-EPI)AfAm 36 (>60 ml/min/1.73 sqM) Est GFR (CKD-EPI)NonAf 32 (>60 ml/min/1.73 sqM) Glucose 95 (74-99) mg/dL Calcium 8.3 L (8.4-10.2) mg/dL Urine Color Urine Appearance (Clear) Urine pH (5.0-8.0) Ur Specific [place] (1.001-1.035) Urine Protein (Negative) Urine Glucose (UA) (Negative) Urine Ketones (Negative) Urine Blood (Negative) Urine Nitrite (Negative) Urine Bilirubin (Negative) Urine Urobilinogen (<2.0) mg/dL Ur Leukocyte Esterase (Negative) 03/11/19 03/11/19 Range/Units 21:51 21:51 WBC (3.8-10.6) k/uL RBC (4.30-5.90) m/uL Hgb (13.0-17.5) gm/dL Hct (39.0-53.0) % MCV (80.0-100.0) fL MCH (25.0-35.0) pg MCHC (31.0-37.0) g/dL RDW (11.5-15.5) % Plt Count (150-450) k/uL Neutrophils % % Lymphocytes % % Monocytes % % Eosinophils % % Basophils % % Neutrophils # (1.3-7.7) k/uL Lymphocytes # (1.0-4.8) k/uL Monocytes # (0-1.0) k/uL Eosinophils # (0-0.7) k/uL Basophils # (0-0.2) k/uL PT (9.0-12.0) sec INR (<1.2) APTT (22.0-30.0) sec VBG pH 7.38 (7.31-7.41) VBG pCO2 45 (37-51) mmHg VBG HCO3 26 (24-28) mmol/L Sodium (137-145) mmol/L Potassium (3.5-5.1) mmol/L Chloride (98-107) mmol/L Carbon Dioxide (22-30) mmol/L Anion Gap mmol/L BUN (9-20) mg/dL Creatinine (0.66-1.25) mg/dL Est GFR (CKD-EPI)AfAm (>60 ml/min/1.73 sqM) Est GFR (CKD-EPI)NonAf (>60 ml/min/1.73 sqM) Glucose (74-99) mg/dL Calcium (8.4-10.2) mg/dL Urine Color Yellow Urine Appearance Clear (Clear) Urine pH 5.5 (5.0-8.0) Ur Specific [place] 1.014 (1.001-1.035) Urine Protein Trace H (Negative) Urine Glucose (UA) Negative (Negative) Urine Ketones Negative (Negative) Urine Blood Negative (Negative) Urine Nitrite Negative (Negative) Urine Bilirubin Negative (Negative) Urine Urobilinogen <2.0 (<2.0) mg/dL Ur Leukocyte Esterase Negative (Negative) Disposition Clinical Impression: Fall, Hip fracture Disposition: ADMITTED IP TO THIS [facility] Condition: Fair Referrals: George Whitlock DO [Primary Care Provider] - 1-2 days Decision Time: 22:29
[2019-03-11 21:17] LABS: Basophils % (A) 0 %; Eosinophils # (A) 0.1 k/uL (0-0.7); Eosinophils % (A) 1 %; HCT 28.7 % (39.0-53.0); Lymphocytes % (A) 6 %; MCH 28.4 pg (25.0-35.0); MCHC 32.1 g/dL (31.0-37.0); MCV 88.3 fL (80.0-100.0); Mean Platelet Volume 8.2; Monocytes # (A) 0.6 k/uL (0-1.0); Monocytes % (A) 4 %; Neutrophils % (A) 89 %; Platelet Count 151 k/uL (150-450); RBC 3.25 m/uL (4.30-5.90); RDW 14.5 % (11.5-15.5); WBC 16.8 k/uL (3.8-10.6)
[2019-03-11 21:21] LABS: HGB 9.2 gm/dL (13.0-17.5)
[2019-03-11 21:24] LABS: Calcium 8.3 mg/dL (8.4-10.2); Potassium 4.2 mmol/L (3.5-5.1)
[2019-03-11 21:35] LABS: INR 1.1 (<1.2); Prothrombin Time 11.9 sec (9.0-12.0)
[2019-03-11 21:41] LABS: Partial Thromboplastin Time 20.1 sec (22.0-30.0)
[2019-03-11 22:01] LABS: VBG PH 7.38 (7.31-7.41)
[2019-03-11 22:06] LABS: Appearance,Urine Clear (Clear); Bilirubin,Urine Negative (Negative); Blood,Urine Negative (Negative); Color,Urine Yellow; Glucose,Urine (UA) Negative (Negative); Ketones,Urine Negative (Negative); Leukocyte Esterase,Urine Negative (Negative); Nitrite,Urine Negative (Negative); PH, Urine 5.5 (5.0-8.0); Protein,Urine Trace (Negative); Specific Gravity,Urine 1.014 (1.001-1.035); Urobilinogen,Urine <2.0 mg/dL (<2.0)
[2019-03-11] MEDS ORDERED: NALOXONE 0.4 MG/ML 1 ML VIAL IV PRN (22:26)
[2019-03-11] MEDS ORDERED: ONDANSETRON 4 MG/2 ML VIAL IVP PRN (22:26)
[2019-03-11 23:03] LABS: ABG Base Excess 2.1 mmol/L; ABG HCO3 26 mmol/L (21-25); ABG Oxygen Saturation 79.5 % (94-97); ABG PCO2 38 mmHg (35-45); ABG PH 7.45 (7.35-7.45); ABG TCO2 27 mmol/L (19-24); Allen Test Performed? Yes
[2019-03-11] MEDS ORDERED: HEPARIN SODIUM,PORCINE 5,000 UNIT/ML 1 ML VIAL IV PRN (23:03)
[2019-03-11] MEDS ORDERED: HEPARIN SODIUM,PORCINE 10,000 UNIT/ML 1 ML VIAL IV ONE (23:03)
[2019-03-11 23:06] LABS: ABG PO2 43 mmHg (83-108)
[2019-03-11] MEDS ORDERED: FUROSEMIDE 10 MG/ML 4 ML VIAL IV STA (23:20)
[2019-03-11] MEDS ORDERED: ASPIRIN 81 MG PO STA (23:21)
[2019-03-11] MEDS: HEPARIN SOD,PORK IN 0.45% NACL 25,000 UNIT in 0.45% NACL 1 250ML.BAG IV SCH (23:41)
[2019-03-11] MEDS: SODIUM CHLORIDE 0.9% 1,000 ML IV SCH (23:43)
[2019-03-12] MEDS: MORPHINE SULFATE 4 MG/ML SYRINGE IV PRN ×3 (01:26→15:54)
[2019-03-12 07:59] LABS: Glucose,Whole Blood 129 mg/dL (75-99)
[2019-03-12] MEDS: PANTOPRAZOLE 40 MG/10 ML VIAL IV SCH (08:15)
[2019-03-12] MEDS: INSULIN ASPART (NovoLOG) 100 UNIT/ML VIAL SQ SCH ×9 (09:16→21:21)
[2019-03-12] MEDS: SODIUM CHLORIDE 0.9% 1,000 ML IV SCH ×2 (09:16→16:53)
[2019-03-12] MEDS ORDERED: NON FORMULARY DRUG (Menthol [Biofreeze] 1 APPLIC) TOPICAL PRN (10:25)
--- NOTE | 2019-03-12 11:14 | P.CNOR ---
History of Present Illness - [facility] Consult date: 03/12/19 Consult reason: fracture History of present illness: Patient is a 73-year-old male who is seen and examined at bedside. He says that he fell at home from a standing position after he just tripped and fell. He de nies any chest pain or shortness of breath. He lives at home alone in assisted living facility. He says he normally uses some assistive device. He has a recent history of a right proximal humerus fracture which has been treated conservatively. He says that he has had a number of falls up to 4 falls over the past several weeks. He has new pain in his right hip. He denies any prior pain in his right hip in the past. He says he has edema and swelling in his bilateral lower extremities which has been chronic for him. He says that he did not pass out or lose consciousness. He denies any chest pain shortness breath. He denies any fevers or chills. Review of Systems As stated per her history. Denies any chest pain shortness breath. Denies any fevers chills night sweats. Denies any prior pain in his right hip or thigh. He admits to swelling his bilateral lower extremities. He admits to recent injury his right shoulder. He still falling. Possibly 4 times fairly recently. 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 administrator for over 20 years History of Any Multi-Drug Resistant Organisms: None Reported Past Surgical History: Pacemaker Additional Past Surgical History / Comment(s): nasal surgery Type of Cardiac Device: Permanent Pacemaker Device Placement Date:: 2017 Past Psychological History: No Psychological Hx Reported Smoking Status: Never smoker Past Alcohol Use History: None Reported Past Drug Use History: None Reported - Past Family History Family Family Medical History: No Reported History Medications and Allergies Home Medications Medication Instructions Recorded Confirmed Type Amiodarone [Cordarone] 200 mg PO DAILY 01/03/19 03/11/19 History Atorvastatin [Lipitor] 10 mg PO 01/03/19 03/11/19 History Furosemide [Lasix] 40 mg PO PC-SUPPER 01/03/19 03/11/19 History Insulin Glargine,Hum.rec.anlog 44 unit SQ 01/03/19 03/11/19 History [Basaglar Kwikpen U-100] Metoprolol Succinate [Toprol XL] 100 mg PO BID 01/03/19 03/11/19 History amLODIPine [Norvasc] 5 mg PO DAILY 01/03/19 03/11/19 History metFORMIN HCL 1,000 mg PO BID 01/03/19 03/11/19 History Losartan Potassium 100 mg PO DAILY 01/19/19 03/11/19 History HYDROcodone/APAP 5-325MG [[place] 1 tab PO Q6H PRN #12 tab 01/22/19 03/11/19 Rx 5-325] Menthol [Biofreeze] 1 applic TOPICAL HS PRN 02/01/19 03/11/19 History Tamsulosin [Flomax] 0.4 mg PO DAILY 02/01/19 03/11/19 History Aspirin [Adult Low Dose Aspirin EC] 81 mg PO DAILY 03/11/19 03/11/19 History Furosemide [Lasix] 80 mg PO DAILY 03/11/19 03/11/19 History INSULIN ASPART (NovoLOG) [NovoLOG 5 unit SQ AC-TID 03/11/19 03/11/19 History (formulary)] INSULIN ASPART (NovoLOG) [NovoLOG See Protocol SQ AC-TID 03/11/19 03/11/19 History (formulary)] Latanoprost [Xalatan 0.005%] 1 drop BOTH EYES HS 03/11/19 03/11/19 History Allergies Allergy/AdvReac Type Severity Reaction Status Date / Time No Known Allergies Allergy Verified 03/11/19 21:53 Physical Examination Osteopathic Statement: *. No significant issues noted on an osteopathic structural exam other than those noted in the History and Physical/Consult. - Hip right Gait: other (The patient's flat in bed has pain with any sort of motion in the right hip. Pain with internal/external rotation of his hip. His thigh and calf are soft nontender. His bilateral lower extremity edema which is equal bilaterally. He has sustained dorsal flexion plantarflexion and EHL intact. Sensory is intact. Abdomen soft his multiple bruises over his abdomen. His right upper extremity has induration and ecchymosis globally around his upper arm toward his elbow and his upper forearm. He has some pain in his right p roximal humerus and history of recent shoulder fracture. He has good motion in his hands and fingers bilaterally. His neck is nontender. He is wearing loosely a nonrebreather mask. His left upper extremity has good active and passive range motion. His chest has good excursion deep inspection expiration there is no pain with motion in his neck.) Results - Labs Labs: Abnormal Lab Results - Last 24 Hours (Table) 03/11/19 03/11/19 03/11/19 Range/Units 20:52 20:52 20:52 WBC 16.8 H (3.8-10.6) k/uL RBC 3.25 L (4.30-5.90) m/uL Hgb 9.2 L D (13.0-17.5) gm/dL Hct 28.7 L (39.0-53.0) % Neutrophils # 15.0 H (1.3-7.7) k/uL APTT 20.1 L (22.0-30.0) sec ABG pO2 (83-108) mmHg ABG HCO3 (21-25) mmol/L ABG Total CO2 (19-24) mmol/L ABG O2 Saturation (94-97) % BUN 31 H (9-20) mg/dL Creatinine 2.01 H (0.66-1.25) mg/dL POC Glucose (mg/dL) (75-99) mg/dL Calcium 8.3 L (8.4-10.2) mg/dL Urine Protein (Negative) 03/11/19 03/11/19 03/12/19 Range/Units 21:51 23:00 05:47 WBC (3.8-10.6) k/uL RBC (4.30-5.90) m/uL Hgb (13.0-17.5) gm/dL Hct (39.0-53.0) % Neutrophils # (1.3-7.7) k/uL APTT 144.1 H* (22.0-30.0) sec ABG pO2 43 L* (83-108) mmHg ABG HCO3 26 H (21-25) mmol/L ABG Total CO2 27 H (19-24) mmol/L ABG O2 Saturation 79.5 L (94-97) % BUN (9-20) mg/dL Creatinine (0.66-1.25) mg/dL POC Glucose (mg/dL) (75-99) mg/dL Calcium (8.4-10.2) mg/dL Urine Protein Trace H (Negative) 03/12/19 Range/Units 07:56 WBC (3.8-10.6) k/uL RBC (4.30-5.90) m/uL Hgb (13.0-17.5) gm/dL Hct (39.0-53.0) % Neutrophils # (1.3-7.7) k/uL APTT (22.0-30.0) sec ABG pO2 (83-108) mmHg ABG HCO3 (21-25) mmol/L ABG Total CO2 (19-24) mmol/L ABG O2 Saturation (94-97) % BUN (9-20) mg/dL Creatinine (0.66-1.25) mg/dL POC Glucose (mg/dL) 129 H (75-99) mg/dL Calcium (8.4-10.2) mg/dL Urine Protein (Negative) H & H 03/11/19 Range/Units 20:52 Hgb 9.2 L D (13.0-17.5) gm/dL Hct 28.7 L (39.0-53.0) % Coagulation 03/11/19 Range/Units 20:52 INR 1.1 (<1.2) Result Diagrams: 03/11/19 20:52 03/11/19 20:52 - Diagnostic results Hip x-ray: report reviewed, image reviewed (At his right hip there is a displaced nasal related intertrochanteric femur fracture. There seems to be some extension of the fracture line just below the lesser trochanter. He appears to have somewhat osteopenic bone.) Assessment and Plan Assessment: Acute right femur intertrochanteric fracture with displacement and angulation due to a fall Inability to ambulate due to femur fracture Recent history of right proximal humerus fracture History of having a pacemaker History of prostate issues Hypoxia Plan: Acute right femur intertrochanteric fracture with displacement and angulation due to a fall Inability to ambulate due to femur fracture Recent history of right proximal humerus fracture History of having a pacemaker History of prostate issues Hypoxia The patient had a fall and sustained a right femur intertrochanteric fracture with some ambulation and displacement. He is unable ambulate due to this and I think that he would require internal fixation and stabilization of his right femur fracture nor significant best chance to mobilize and ambulate again. It is very unlikely that he would be able to get up out of bed or start any mobilization without fixation of the fracture. I explained this to him at bedside at length. I discussed the nature of his injury and the risk of occasions alternatives and benefits of various treatment options. We discussed the risks of surgery and answers questions. Patient is very interested in proceeding with surgery as soon as possible and I think that is reasonable once he is cleared with medicine service. In terms of his surgery he will require internal fixation and we will plan for a right hip intramedullary hip screw with a long femoral nail in order to give him protection of the extended fracture line. Once he is cleared from medicine standpoint we will try to proceed with surgery hopefully on ThursdayMarch 13. We'll make him nothing by mouth after midnight. The patient has some hypoxia and is on a nonrebreather. It is difficult to ascertain how fully cooperative he will be with his overall management but he is agreeable to proceed with surgical intervention as soon as possible. He does have history of pacemaker and is on Cardizem and is having some hypoxia. They're concerned about the possibility of other medical issues such as possibly a fat emboli as he does have some pulmonary edema. Fixation of his femur fracture would help if he is having any ulnar emboli as well. He is on blood thinners and we will hold those after midnight for procedure for surgery hopefully Thursday if he is cleared medicine. He'll be nothing by mouth after midnight tonight. Time with Patient: Greater than 30
--- NOTE | 2019-03-12 11:59 | P.CRDCN ---
History of Present Illness History of present illness: HISTORY OF PRESENTING ILLNESS This is a pleasant 73-year-old male past medical history significant for hypertension, dyslipidemia, diabetes mellitus, paroxysmal atrial fibrillation not on detention anticoagulation, bleed in the brain 9 yrs ago and permanent pacemaker implantation. We have been asked to see in consultation for heart failure. He presented to the ER with symptoms of fall and right hip pain. Yesterday while at home he felt like he was going to lose his balance and fell. He denies LOC, no chest pain, no shortness, no dizziness or palpitations. He also suffered a fall 4-5 weeks ago causing a right humeral fracture that was treated with a sling. He was hypoxic last evening and blood gases were obtained and non-rebreather applied. He is seen and examined resting comfortably in bed in no acute distress. Non-rebreather has been removed and he is currently maintaining oxygen saturation on nasal cannula 5 liters. DIAGNOSTICS EKG reveals AV paced with T-wave inversion in the anterior lateral leads. Chest xray mild heart failure, unchanged from previous exam. Displaced humeral neck fracture. Hip xray indicates acute fracture of the right intertrochanteric femur. Shoulder xray indicates right humeral neck fracture, stable from previous exam. CT brain reveals cerebral atrophy and chronic small vessel ischemia. Laboratory reviewed, WBC 16.8, hgb 9.2, plt 151, pO2 43, HCO3-26, CO2-27, sodium 139, potassium 4.2, creatinine 2.01 with GFR 32, troponin negative x1 and proBNP 1800. Current cardiac medications include lasix 40 mg with dinner and 80 mg in the am, atorvastatin 10 mg daily, amlodipine 5 mg daily, toprol 100 mg BID, losartan 100 mg daily, aspirin 81 mg daily and amiodarone 200 mg daily. REVIEW OF SYSTEMS At the time of my exam: CONSTITUTIONAL: Denies fever or chills. CARDIOVASCULAR: Denies chest pain, shortness of breath, orthopnea, PND or palpi tations. RESPIRATORY: Denies cough. GASTROINTESTINAL: Denies abdominal pain, diarrhea, constipation, nausea or vomiting. MUSCULOSKELETAL: Denies myalgias. NEUROLOGIC: Denies numbness, tingling or weakness. ENDOCRINE: Denies fatigue, weight change, polydipsia or polyurina. GENITOURINARY: Denies burning, hematuria or urgency with micturation. HEMATOLOGIC: Denies history of anemia or bleeding. PHYSICAL EXAMINATION Blood pressure 137/58 heart rate 67 afebrile and maintaining oxygen saturation on non-rebreather at 15 liters. CONSTITUTIONAL: No apparent distress. HEENT: Head is normocephalic. Pupils are equal, round. Sclerae anicteric. Mucous membranes of the mouth are moist. No JVD. No carotid bruit. CHEST EXAMINATION: Lungs are clear to auscultation. No chest wall tenderness is noted on palpation or with deep breathing. HEART EXAMINATION: Regular rate and rhythm. S1, S2 heard. Systolic ejection murmur at the base and at the apex, no gallops or rub. ABDOMEN: Soft, nontender. Positive bowel sounds. EXTREMITIES: 2+ peripheral pulses, no lower extremity edema and no calf tenderness. Significant bruising and swelling to the right arm. NEUROLOGIC EXAMINATION: Patient is awake, alert and oriented x3. ASSESSMENT Fall Right hip fracture Paroxysmal atrial fibrillation not on anti-coagulation due to brain bleed in the past Hypoxia Permanent pacemaker implantation Hypertension PLAN Obtain 2D echocardiogram and doppler study to assess cardiac structure and function. Check d-dimer and CTA if abnormal. Check second troponin. Heparin infusion ongoing for unknown reason, to be managed by PCP. Continue amodarone, lasix, atorvastatin, amlodipine, toprol and losartan as previously ordered. Recommend cautious fluid administration and optimal blood pressure control intra-operatively. We will review the echo prior to taking him to the OR. We will request records from his primary business case analyst on Thursday to evaluate why not on watermelon inspector anti-coagulation. The patient is not quite sure however he states he did have bleeding in his brain 9 years ago. Thank you kindly for this consultation. Nurse Practitioner note has been reviewed, I agree with a documented findings and plan of care. Patient was seen and examined. Past Medical History Past Medical History: Diabetes Mellitus, Hyperlipidemia, Hypertension, Prostate Disorder Additional Past Medical History / Comment(s): Enlarged prostate History of Any Multi-Drug Resistant Organisms: None Reported Past Surgical History: Pacemaker Additional Past Surgical History / Comment(s): nasal surgery Type of Cardiac Device: Permanent Pacemaker Device Placement Date:: 2017 Past Psychological History: No Psychological Hx Reported Smoking Status: Never smoker Past Alcohol Use History: None Reported Past Drug Use History: None Reported - Past Family History Family Family Medical History: No Reported History Medications and Allergies Home Medications Medication Instructions Recorded Confirmed Type Amiodarone [Cordarone] 200 mg PO DAILY 01/03/19 03/11/19 History Atorvastatin [Lipitor] 10 mg PO HS 01/03/19 03/11/19 History Furosemide [Lasix] 40 mg PO PC-SUPPER 01/03/19 03/11/19 History Insulin Glargine,Hum.rec.anlog 44 unit SQ HS 01/03/19 03/11/19 History [Basaglar Kwikpen U-100] Metoprolol Succinate [Toprol XL] 100 mg PO BID 01/03/19 03/11/19 History amLODIPine [Norvasc] 5 mg PO DAILY 01/03/19 03/11/19 History metFORMIN HCL 1,000 mg PO BID 01/03/19 03/11/19 History Losartan Potassium 100 mg PO DAILY 01/19/19 03/11/19 History HYDROcodone/APAP 5-325MG [[place] 1 tab PO Q6H PRN #12 tab 01/22/19 03/11/19 Rx 5-325] Menthol [Biofreeze] 1 applic TOPICAL HS PRN 02/01/19 03/11/19 History Tamsulosin [Flomax] 0.4 mg PO DAILY 02/01/19 03/11/19 History Aspirin [Adult Low Dose Aspirin EC] 81 mg PO DAILY 03/11/19 03/11/19 History Furosemide [Lasix] 80 mg PO DAILY 03/11/19 03/11/19 History INSULIN ASPART (NovoLOG) [NovoLOG 5 unit SQ AC-TID 03/11/19 03/11/19 History (formulary)] INSULIN ASPART (NovoLOG) [NovoLOG See Protocol SQ AC-TID 03/11/19 03/11/19 History (formulary)] Latanoprost [Xalatan 0.005%] 1 drop BOTH EYES HS 03/11/19 03/11/19 History Allergies Allergy/AdvReac Type Severity Reaction Status Date / Time No Known Allergies Allergy Verified 03/11/19 21:53 Physical Exam Vitals: Vital Signs Temp Pulse Pulse Resp BP BP Pulse Ox 03/12/19 08:14 98.9 F 137/58 03/12/19 07:29 96 03/12/19 07:00 67 20 96 03/12/19 00:51 99.1 F 65 20 142/57 96 03/11/19 23:44 60 18 126/57 95 03/11/19 23:17 93 L 03/11/19 22:55 60 18 140/62 82 L 03/11/19 19:11 98.3 F 60 18 136/61 Intake and Output 03/11/19 03/12/19 03/12/19 22:59 06:59 14:59 Intake Total 290.225 0 Output Total 1100 Balance -809.775 0 Intake: Intake, IV Titration 290.225 0 Amount Heparin Sod,Pork in 0.45% 130.225 0 NaCl 25,000 unit In 0.45 % NaCl 1 250ml.bag @ 18 UNITS/KG/HR 17.962 mls/hr IV .[id number] [facility] Rx#: [id number] Sodium Chloride 0.9% 1, 160 000 ml @ 120 mls/hr IV . Q8H20M [facility] Rx#:[id number] Output: Urine 1100 Uretheral (Saenz) 700 Other: Voiding Method Indwelling Catheter Indwelling Catheter Weight 99.79 kg 99.79 kg Results 03/11/19 20:52 03/11/19 20:52 Cardiac Enzymes 03/11/19 Range/Units 20:52 Troponin I 0.016 (0.000-0.034) ng/mL Coagulation 03/11/19 03/12/19 Range/Units 20:52 05:47 PT 11.9 (9.0-12.0) sec APTT 20.1 L 144.1 H* (22.0-30.0) sec CBC 03/11/19 Range/Units 20:52 WBC 16.8 H (3.8-10.6) k/uL RBC 3.25 L (4.30-5.90) m/uL Hgb 9.2 L D (13.0-17.5) gm/dL Hct 28.7 L (39.0-53.0) % Plt Count 151 (150-450) k/uL Comprehensive Metabolic Panel 03/11/19 Range/Units 20:52 Sodium 139 (137-145) mmol/L Potassium 4.2 (3.5-5.1) mmol/L Chloride 105 (98-107) mmol/L Carbon Dioxide 26 (22-30) mmol/L BUN 31 H (9-20) mg/dL Creatinine 2.01 H (0.66-1.25) mg/dL Glucose 95 (74-99) mg/dL Calcium 8.3 L (8.4-10.2) mg/dL Current Medications Generic Name Dose Route Start Last Admin Trade Name Freq PRN Reason Stop Dose Admin Heparin Sodium (Porcine) 0 unit 03/11/19 23:03 Heparin IV PER PROTOCOL PRN Low PTT Protocol Sodium Chloride 1,000 mls @ 120 mls/hr 03/11/19 22:30 03/12/19 09:16 Saline 0.9% IV Not Given .Q8H20M [facility] Heparin Sodium/Sodium Chloride 250 mls @ 17.962 mls/hr 03/11/19 23:15 03/12/19 09:06 25,000 unit/ Sodium Chloride IV 15 units/kg/hr .[id number] [facility] 14.969 mls/hr Titration Protocol 18 UNITS/KG/HR Insulin Aspart 0 unit 03/12/19 07:30 03/12/19 09:[address] [facility] Protocol Morphine Sulfate 4 mg 03/11/19 22:26 03/12/19 09:54 Morphine Sulfate (Inj) IV 4 mg Q4HR PRN Administration Severe Pain Naloxone HCl 0.2 mg 03/11/19 22:26 Narcan IV Q2M PRN Opioid Reversal Ondansetron HCl 4 mg 03/11/19 22:26 Zofran IVP Q8HR PRN Nausea And Vomiting Pantoprazole Sodium 40 mg 03/12/19 09:00 03/12/19 08:15 Protonix IV 40 mg DAILY [facility] Administration Intake and Output 03/11/19 03/12/19 03/12/19 22:59 06:59 14:59 Intake Total 290.225 0 Output Total 1100 Balance -809.775 0 Intake: Intake, IV Titration 290.225 0 Amount Heparin Sod,Pork in 0.45% 130.225 0 NaCl 25,000 unit In 0.45 % NaCl 1 250ml.bag @ 18 UNITS/KG/HR 17.962 mls/hr IV .[id number] [facility] Rx#: [id number] Sodium Chloride 0.9% 1, 160 000 ml @ 120 mls/hr IV . Q8H20M [facility] Rx#:[id number] Output: Urine 1100 Uretheral (Saenz) 700 Other: Voiding Method Indwelling Catheter Indwelling Catheter Weight 99.79 kg 99.79 kg 03/11/19 20:52 03/11/19 20:52
[2019-03-12 12:14] LABS: Glucose,Whole Blood 125 mg/dL (75-99)
[2019-03-12] MEDS: METOPROLOL SUCCINATE (ER) 100 MG TAB.ER.24H PO SCH ×2 (12:18→21:20)
[2019-03-12] MEDS: LOSARTAN 50 MG TAB PO SCH (12:18)
[2019-03-12] MEDS: HYDROcodone/APAP 5-325MG 1 EACH TAB PO PRN (12:18)
[2019-03-12] MEDS: TAMSULOSIN 0.4 MG CAP.ER.24H PO SCH (12:18)
[2019-03-12] MEDS: AMIODARONE 200 MG TAB PO SCH (12:19)
[2019-03-12] MEDS: amLODIPine 5 MG TAB PO SCH (12:19)
[2019-03-12] MEDS: FUROSEMIDE 80 MG TAB PO SCH (12:19)
[2019-03-12 12:29] LABS: D-Dimer 7.79 mg/L FEU (<0.60); Partial Thromboplastin Time 52.5 sec (22.0-30.0)
--- NOTE | 2019-03-12 13:56 | P.CNPUL ---
History of Present Illness Consult date: 03/12/19 Reason for consult: hypoxemia History of present illness: This is a 73-year-old male patient who fell again yesterday and he came into the emergency department with a right femur intertrochanteric fracture with displacement and angulation unit of follow-up. The patient had also recent fall and right proximal humerus fracture. He is known to have BPH, chronic renal failure, history of pacemaker insertion. The patient was having episodes of fall as he was living in assisted living and he sustained a fracture of his right proximal humerus approximately 3-4 weeks ago and the patient was seen by orthopedic surgery and he was advised to undergo conservative management without any surgical intervention. He has been essentially sedentary without a whole lot of movements at home. In the emergency department, the patient was found to be hypoxic. His pulse ox was in the mid 70s. He was placed on high flow oxygen and he continued to be hypoxic. A blood gas confirmed hypoxemia and the patient's ABGs on 36% FiO2 showed a pH of 7.45 with a pCO2 of 38 and pO2 of 43. As such the patient was transitioned to 100% nonrebreather facemask. On 100% nonrebreather, the patient had a pulse ox of 95-96%. The chest x-ray showed some mild CHF unchanged from the previous examination. The right humerus neck was fracture and was unchanged compared to his previous evaluation. History and being sedentary, the patient was started on IV heparin. He is currently on 5 L of oxygen by nasal cannula. D-dimer is elevated at 7.7. His PTT is thera peutic. No previous history of DVT or pulmonary embolism. No history of smoking. No reported aspiration. No major swelling lower extremities. He has a pacemaker in place. He has also a cardiac murmur on examination Review of Systems Constitutional: Reports fatigue, Reports weakness Eyes: denies as per HPI, denies blurred vision, denies bulging eye, denies decreased vision, denies diplopia, denies discharge, denies dry eye, denies irritation, denies itching, denies pain, denies photophobia, denies loss of peripheral vision, denies loss of vision, denies tunnel vision/blind spots Ears: deny: decreased hearing, ear discharge, earache, tinnitus Ears, nose, mouth and throat: Reports as per HPI Breasts: absent: as per HPI, gynecomastia Cardiovascular: Reports decreased exercise tolerance Respiratory: Reports as per HPI ( was hypoxemic without having any significant shortness of breath or cough sputum production or chest that is so wheezing.), Denies cough Gastrointestinal: Reports as per HPI Genitourinary: Reports as per HPI Musculoskeletal: Reports as per HPI, Reports frequent falls Musculoskeletal: right: shoulder swelling, absent: ankle pain, ankle stiffness, ankle swelling Integumentary: Reports as per HPI Neurological: Reports as per HPI, Reports gait dysfunction, Reports weakness Psychiatric: Reports as per HPI Endocrine: Reports as per HPI Hematologic/Lymphatic: Reports as per HPI Allergic/Immunologic: Reports as per HPI Past Medical History Past Medical History: Diabetes Mellitus, Hyperlipidemia, Hypertension, Prostate Disorder Additional Past Medical History / Comment(s): Pacemaker insertion , chronic kidney disease, diabetes mellitus, hyperlipidemia, right femoral fracture, frequent falls History of Any Multi-Drug Resistant Organisms: None Reported Past Surgical History: Pacemaker Additional Past Surgical History / Comment(s): nasal surgery Type of Cardiac Device: Permanent Pacemaker Device Placement Date:: 2017 Past Psychological History: No Psychological Hx Reported Smoking Status: Never smoker Past Alcohol Use History: None Reported Past Drug Use History: None Reported - Past Family History Family Family Medical History: No Reported History Medications and Allergies Home Medications Medication Instructions Recorded Confirmed Type Amiodarone [Cordarone] 200 mg PO DAILY 01/03/19 03/11/19 History Atorvastatin [Lipitor] 10 mg PO HS 01/03/19 03/11/19 History Furosemide [Lasix] 40 mg PO PC-SUPPER 01/03/19 03/11/19 History Insulin Glargine,Hum.rec.anlog 44 unit SQ HS 01/03/19 03/11/19 History [Basaglar Kwikpen U-100] Metoprolol Succinate [Toprol XL] 100 mg PO BID 01/03/19 03/11/19 History amLODIPine [Norvasc] 5 mg PO DAILY 01/03/19 03/11/19 History metFORMIN HCL 1,000 mg PO BID 01/03/19 03/11/19 History Losartan Potassium 100 mg PO DAILY 01/19/19 03/11/19 History HYDROcodone/APAP 5-325MG [[place] 1 tab PO Q6H PRN #12 tab 01/22/19 03/11/19 Rx 5-325] Menthol [Biofreeze] 1 applic TOPICAL HS PRN 02/01/19 03/11/19 History Tamsulosin [Flomax] 0.4 mg PO DAILY 02/01/19 03/11/19 History Aspirin [Adult Low Dose Aspirin EC] 81 mg PO DAILY 03/11/19 03/11/19 History Furosemide [Lasix] 80 mg PO DAILY 03/11/19 03/11/19 History INSULIN ASPART (NovoLOG) [NovoLOG 5 unit SQ AC-TID 03/11/19 03/11/19 History (formulary)] INSULIN ASPART (NovoLOG) [NovoLOG See Protocol SQ AC-TID 03/11/19 03/11/19 History (formulary)] Latanoprost [Xalatan 0.005%] 1 drop BOTH EYES HS 03/11/19 03/11/19 History Allergies Allergy/AdvReac Type Severity Reaction Status Date / Time No Known Allergies Allergy Verified 03/11/19 21:53 Physical Exam Vitals: Vital Signs Temp Pulse Pulse Resp BP BP Pulse Ox 03/12/19 12:21 60 149/60 03/12/19 08:14 98.9 F 137/58 03/12/19 07:29 96 03/12/19 07:00 67 20 96 03/12/19 00:51 99.1 F 65 20 142/57 96 03/11/19 23:44 60 18 126/57 95 03/11/19 23:17 93 L 03/11/19 22:55 60 18 140/62 82 L 03/11/19 19:11 98.3 F 60 18 136/61 Intake and Output 03/11/19 03/12/19 03/12/19 22:59 06:59 14:59 Intake Total 290.225 0 Output Total 1100 Balance -809.775 0 Intake: Intake, IV Titration 290.225 0 Amount Heparin Sod,Pork in 0.45% 130.225 0 NaCl 25,000 unit In 0.45 % NaCl 1 250ml.bag @ 18 UNITS/KG/HR 17.962 mls/hr IV .[id number] [facility] Rx#: [id number] Sodium Chloride 0.9% 1, 160 000 ml @ 120 mls/hr IV . Q8H20M [facility] Rx#:[id number] Output: Urine 1100 Uretheral (Saenz) 700 Other: Voiding Method Indwelling Catheter Indwelling Catheter Weight 99.79 kg 99.79 kg The patient appeared well nourished and normally developed. Vital signs as documented. Head exam is unremarkable. No scleral icterus or corneal arcus noted. Neck is without jugular venous distension, thyromegaly, or carotid bruits. Carotid upstrokes are brisk bilaterally. Lungs are clear to auscultation and percussion. Cardiac exam reveals the PMI to be normally sized and situated. Rhythm is regular. First and second heart sounds normal. No murmurs, rubs or gallops. Abdominal exam reveals normal bowel sounds, no masses, no organomegaly and no aortic enlargement. (The patient's flat in bed has pain with any sort of motion in the right hip. Pain with internal/external rotation of his hip. His thigh and calf are soft nontender. His bilateral lower extremity edema which is equal bilaterally. He has sustained dorsal flexion plantarflexion and EHL intact. Sensory is intact. Abdomen soft his multiple bruises over his abdomen. His right upper extremity has induration and ecchymosis globally around his upper arm toward his elbow and his upper forearm. He has some pain in his right proximal humerus and history of recent shoulder fracture. He has good motion in his hands and fingers bilaterally. The patient has a pacemaker pocket over the left anterior chest area. Results - Laboratory Findings CBC and BMP: 03/11/19 20:52 03/11/19 20:52 ABG ABG pH 7.45 (7.35-7.45) 03/11/19 23:00 ABG pCO2 38 mmHg (35-45) 03/11/19 23:00 ABG pO2 43 mmHg (83-108) L* 03/11/19 23:00 ABG O2 Saturation 79.5 % (94-97) L 03/11/19 23:00 PT/INR, D-dimer PT 11.9 sec (9.0-12.0) 03/11/19 20:52 INR 1.1 (<1.2) 03/11/19 20:52 D-Dimer 7.79 mg/L FEU (<0.60) H 03/12/19 11:38 Abnormal lab findings: Abnormal Labs 03/11/19 03/11/19 03/11/19 20:52 20:52 20:52 WBC 16.8 H RBC 3.25 L Hgb 9.2 L D Hct 28.7 L Neutrophils # 15.0 H APTT 20.1 L D-Dimer ABG pO2 ABG HCO3 ABG Total CO2 ABG O2 Saturation BUN 31 H Creatinine 2.01 H POC Glucose (mg/dL) Calcium 8.3 L Urine Protein 03/11/19 03/11/19 03/12/19 21:51 23:00 05:47 WBC RBC Hgb Hct Neutrophils # APTT 144.1 H* D-Dimer ABG pO2 43 L* ABG HCO3 26 H ABG Total CO2 27 H ABG O2 Saturation 79.5 L BUN Creatinine POC Glucose (mg/dL) Calcium Urine Protein Trace H 03/12/19 03/12/19 03/12/19 07:56 11:25 11:38 WBC RBC Hgb Hct Neutrophils # APTT 52.5 H D-Dimer 7.79 H ABG pO2 ABG HCO3 ABG Total CO2 ABG O2 Saturation BUN Creatinine POC Glucose (mg/dL) 129 H 125 H Calcium Urine Protein - Diagnostic Findings Chest x-ray: image reviewed Assessment and Plan Plan: 1 acute hypoxemic respiratory failure, asymptomatic. Rule out pulmonary embolism. Rule out fat embolism knowing that the patient had a humeral fractures every week back. CHF is possible although less likely. The patient was having significant amount of shunt which makes me suspicious about that a fat embolism or pulmonary embolism. Currently on IV heparin. Dopplers are pending. I'm unable to do the CT angiogram due to chronic renal insufficiency and concern for contrast nephropathy. 2 right humeral fracture, proximal, conservative management 3 right hip fracture intertrochanteric awaiting surgical repair pending medical clearance 4 pacemaker insertion 5 suspect CHF with valvular heart disease as the patient has a significant amount of murmur, awaiting an echocardiogram 6 recurrent falls 7 BPH 8 chronic kidney disease stage III 9 hyperlipidemia 10 hypertension 11 diabetes mellitus Plan This patient was severely hypoxemic in the emergency department yesterday. He was placed on 100% nonrebreather facemask. He had significant degree of shunt and this was confirmed by a blood. This showed severe hypoxemia. Currently is improved and is currently on 5 L of oxygen by nasal cannula. Obtain Dopplers of the lower extremities and the right upper extremity . Keep the IV heparin p ending further workup. Suspicious presentation for fat embolism or pulmonary embolism. Obtain echocardiogram. Monitor the cardiac rhythm. No clearance yet offered till above-mentioned workup is completed.
--- NOTE | 2019-03-12 14:58 | US ---
EXAMINATION TYPE: US venous doppler duplex LE DATE OF EXAM: 03/12/2019 2:14 PM COMPARISON: NONE CLINICAL HISTORY: consider PE. Bilateral edema SIDE PERFORMED: Bilateral TECHNIQUE: The lower extremity deep venous system is examined utilizing real time linear array sonog carson with graded compression, doppler sonography and color-flow sonography. VESSELS IMAGED: External Iliac Vein (EIV) Common Femoral Vein Deep Femoral Vein Greater Saphenous Vein * Femoral Vein Popliteal Vein Small Saphenous Vein * Proximal Calf Veins (* superficial vessels) Right Leg: Negative for DVT Left Leg: Negative for DVT IMPRESSION: Normal exam. No evidence of deep venous thrombosis in both legs.
--- NOTE | 2019-03-12 15:01 | US ---
EXAMINATION TYPE: US venous doppler duplex UE RT DATE OF EXAM: 03/12/2019 COMPARISON: NONE CLINICAL HISTORY: Right arm edema, hypoxemia. SIDE PERFORMED: Right Exam is limited due to patient being unable/ unwilling to remove shirt. Axilla vein not imaged. Basil ic vein not imaged as patient was unable to move arm away from body. IJV, subclavian, brachial cephalic, radial, and ulnar veins imaged. Right Arm: Negative for DVT Limited study. IMPRESSION: Limited exam shows no evidence of deep venous thrombosis in the right arm.
[2019-03-12] MEDS ORDERED: FUROSEMIDE 10 MG/ML 10 ML VIAL IV STA (15:45)
--- NOTE | 2019-03-12 15:59 | P.CONS ---
History of Present Illness - Reason for Consult Consult date: 03/12/19 Medical management Requesting physician: Kalia Brown - Chief Complaint fall - History of Present Illness History of presenting complaint: This is a 73-year-old patient of Dr. Whitlock. Resident of [facility]. Chronic stable medical conditions include diabetes, hypertension, hyperlipidemia, BPH. History is obtained by the patient and the son of the bedside. Patient normally uses a walker. Oral. Total time patient been having falls. We will for quite some time. Patient described that he just loses his balance and goes down. Denies any obvious dizziness or lightheadedness. No palpitations. Patient also been noticed to be short of breath but the son going on for some time. Patient is also had chronic swelling of the lower extremities. Otherwise patient appetite is fair bowel movements are fair. On this occasion patient recently did have a fracture of the right upper humerus. 4 days ago patient fell down and fractured his humerus yet again. Yesterday patient again had a fall at this time was noted to have a fracture of the right femur. Patient advised was admitted to my colleague orthopedic service. Patient is found to be significantly hypoxic in the ER and is a suspicion of fat embolism. Patient started and IV heparin. Patient is found to be significantly hypoxic on the blood gases. Patient's surgery has been postponed for right now. Review of systems: GEN.: Tired EYES: None HEENT: None NECK: None RESPIRATORY: Short of breath CARDIOVASCULAR: Edema present GASTROINTESTINAL: None GENITOURINARY: None MUSCULOSKELETAL: Pain in the right upper extremity right femur LYMPHATICS: None HEMATOLOGICAL: None PSYCHIATRY: Slightly forgetful NEUROLOGICAL: Poor balance Past medical history to include: Diabetes mellitus type 2, hypertension, hyperlipidemia, pacemaker, chronic kidney disease, Social history: Lives at [place]. No smoking or alcohol history. Family history: Reviewed, noncontributory to presentation Physical examination: VITAL SIGNS: 98.3, 60, 18, 136/61, 82% on 3 L GENERAL: BMI 29.8, laying in bed a bit tired. EYES: Pupils equal. Conjunctiva normal. HEENT: External appearance of nose and ears normal, oral cavity grossly normal. NECK: JVD unable to assess; masses not palpable. HEART: [First and second heart sounds are normal; edema present. LUNGS:[ Respiratory rate increased, diminished breath sounds. ABDOMEN: Soft, nontender, liver spleen not palpable, no masses palpable. PSYCH: Alert and oriented x3; mood and affect normal. NEUROLOGICAL: Cranial nerves grossly intact; no facial asymmetry, power and sensation grossly intact. LYMPHATICS: No lymph nodes palpable in the axilla and neck EXTREMITY: Right upper extremity is swollen with some bruising around the elbow, as per the son this is been present for quite some time since the previous fracture Limited range of motion of the right hip INVESTIGATIONS, reviewed in the clinical context: White count 16.8 hemoglobin 9.2 platelets 151 ABG-pH 7.45 pO2 43 pCO2 38 Bun 31 and creatinine 2.01 proBNP 1800 Chest x-ray film personally reviewed by me-cardiomegaly and some pulmonary congestion EKG tracing personally reviewed by me-paced rhythm with poor baseline X-ray right hip-IT fracture Assessment: -This is a patient who is been having poor balance for some time. Frequent falls. This has resulted in no a fracture of the right humerus recently and right femur on this admission. -Acute hypoxic respiratory failure severe, and the patient was been noticed by his son to be short of breath for some time. Patient has bilateral history swelling. Tired. It is possible patient may. Acute on chronic PE, fat embo lism remains in the differential. Given the renal function will patient will need a VQ scan. -Diabetes mellitus type 2 on oral hypoglycemic -Essential hypertension -Hyperlipidemia -BPH -Chronic kidney disease stage III likely from diabetic nephropathy and hypertensive nephrosclerosis -Right humerus fracture secondary to fall -Right femur IT fracture secondary to fall -IV heparin monitoring -Full code Plan: Patient started and IV heparin the ER. Spoke to Dr. Hills and also got conveyed to Dr. Brown from orthopedics about postponing the surgery at least till Thursday to this is most of place.. Other home medications resumed. Patient does appear to be in fluid overload at least radiologically, we'll DC the IV fluids and give a dose of IV Lasix. Patient is on maintenance dose of diuretics at home. Other home medications resumed. Cardiology will also see the patient. A VQ scan was also being ordered. Thank you Dr. Brown Past Medical History Past Medical History: Diabetes Mellitus, Hyperlipidemia, Hypertension, Prostate Disorder Additional Past Medical History / Comment(s): Enlarged prostate History of Any Multi-Drug Resistant Organisms: None Reported Past Surgical History: Pacemaker Additional Past Surgical History / Comment(s): nasal surgery Type of Cardiac Device: Permanent Pacemaker Device Placement Date:: 2017 Past Psychological History: No Psychological Hx Reported Smoking Status: Never smoker Past Alcohol Use History: None Reported Past Drug Use History: None Reported - Past Family History Family Family Medical History: No Reported History Medications and Allergies Home Medications Medication Instructions Recorded Confirmed Type Amiodarone [Cordarone] 200 mg PO DAILY 01/03/19 03/11/19 History Atorvastatin [Lipitor] 10 mg PO HS 01/03/19 03/11/19 History Furosemide [Lasix] 40 mg PO PC-SUPPER 01/03/19 03/11/19 History Insulin Glargine,Hum.rec.anlog 44 unit SQ HS 01/03/19 03/11/19 History [Basaglar Kwikpen U-100] Metoprolol Succinate [Toprol XL] 100 mg PO BID 01/03/19 03/11/19 History amLODIPine [Norvasc] 5 mg PO DAILY 01/03/19 03/11/19 History metFORMIN HCL 1,000 mg PO BID 01/03/19 03/11/19 History Losartan Potassium 100 mg PO DAILY 01/19/19 03/11/19 History HYDROcodone/APAP 5-325MG [[place] 1 tab PO Q6H PRN #12 tab 01/22/19 03/11/19 Rx 5-325] Menthol [Biofreeze] 1 applic TOPICAL HS PRN 02/01/19 03/11/19 History Tamsulosin [Flomax] 0.4 mg PO DAILY 02/01/19 03/11/19 History Aspirin [Adult Low Dose Aspirin EC] 81 mg PO DAILY 03/11/19 03/11/19 History Furosemide [Lasix] 80 mg PO DAILY 03/11/19 03/11/19 History INSULIN ASPART (NovoLOG) [NovoLOG 5 unit SQ AC-TID 03/11/19 03/11/19 History (formulary)] INSULIN ASPART (NovoLOG) [NovoLOG See Protocol SQ AC-TID 03/11/19 03/11/19 History (formulary)] Latanoprost [Xalatan 0.005%] 1 drop BOTH EYES HS 03/11/19 03/11/19 History Allergies Allergy/AdvReac Type Severity Reaction Status Date / Time No Known Allergies Allergy Verified 03/11/19 21:53 Physical Exam Vitals: Vital Signs Temp Pulse Pulse Resp BP BP Pulse Ox 03/12/19 08:14 98.9 F 137/58 03/12/19 07:29 96 03/12/19 07:00 67 20 96 03/12/19 00:51 99.1 F 65 20 142/57 96 03/11/19 23:44 60 18 126/57 95 03/11/19 23:17 93 L 03/11/19 22:55 60 18 140/62 82 L 03/11/19 19:11 98.3 F 60 18 136/61 Intake and Output 03/11/19 03/12/19 03/12/19 22:59 06:59 14:59 Intake Total 290.225 0 Output Total 1100 Balance -809.775 0 Intake: Intake, IV Titration 290.225 0 Amount Heparin Sod,Pork in 0.45% 130.225 0 NaCl 25,000 unit In 0.45 % NaCl 1 250ml.bag @ 18 UNITS/KG/HR 17.962 mls/hr IV .[id number] [facility] Rx#: [id number] Sodium Chloride 0.9% 1, 160 000 ml @ 120 mls/hr IV . Q8H20M [facility] Rx#:[id number] Output: Urine 1100 Uretheral (Saenz) 700 Other: Voiding Method Indwelling Catheter Indwelling Catheter Weight 99.79 kg 99.79 kg Results CBC & Chem 7: 03/11/19 20:52 03/11/19 20:52 Labs: Abnormal Lab Results - Last 24 Hours (Table) 03/11/19 03/11/19 03/11/19 Range/Units 20:52 20:52 20:52 WBC 16.8 H (3.8-10.6) k/uL RBC 3.25 L (4.30-5.90) m/uL Hgb 9.2 L D (13.0-17.5) gm/dL Hct 28.7 L (39.0-53.0) % Neutrophils # 15.0 H (1.3-7.7) k/uL APTT 20.1 L (22.0-30.0) sec ABG pO2 (83-108) mmHg ABG HCO3 (21-25) mmol/L ABG Total CO2 (19-24) mmol/L ABG O2 Saturation (94-97) % BUN 31 H (9-20) mg/dL Creatinine 2.01 H (0.66-1.25) mg/dL POC Glucose (mg/dL) (75-99) mg/dL Calcium 8.3 L (8.4-10.2) mg/dL Urine Protein (Negative) 03/11/19 03/11/19 03/12/19 Range/Units 21:51 23:00 05:47 WBC (3.8-10.6) k/uL RBC (4.30-5.90) m/uL Hgb (13.0-17.5) gm/dL Hct (39.0-53.0) % Neutrophils # (1.3-7.7) k/uL APTT 144.1 H* (22.0-30.0) sec ABG pO2 43 L* (83-108) mmHg ABG HCO3 26 H (21-25) mmol/L ABG Total CO2 27 H (19-24) mmol/L ABG O2 Saturation 79.5 L (94-97) % BUN (9-20) mg/dL Creatinine (0.66-1.25) mg/dL POC Glucose (mg/dL) (75-99) mg/dL Calcium (8.4-10.2) mg/dL Urine Protein Trace H (Negative) 03/12/19 Range/Units 07:56 WBC (3.8-10.6) k/uL RBC (4.30-5.90) m/uL Hgb (13.0-17.5) gm/dL Hct (39.0-53.0) % Neutrophils # (1.3-7.7) k/uL APTT (22.0-30.0) sec ABG pO2 (83-108) mmHg ABG HCO3 (21-25) mmol/L ABG Total CO2 (19-24) mmol/L ABG O2 Saturation (94-97) % BUN (9-20) mg/dL Creatinine (0.66-1.25) mg/dL POC Glucose (mg/dL) 129 H (75-99) mg/dL Calcium (8.4-10.2) mg/dL Urine Protein (Negative)
--- NOTE | 2019-03-12 16:00 | P.HPIM ---
History of Present Illness H&P Date: 03/12/19 Dr. Brown from orthopedics has requested the patient be transferred to my service. Please use my consultation from earlier today to H&P. Past Medical History Past Medical History: Diabetes Mellitus, Hyperlipidemia, Hypertension, Prostate Disorder Additional Past Medical History / Comment(s): Enlarged prostate History of Any Multi-Drug Resistant Organisms: None Reported Past Surgical History: Pacemaker Additional Past Surgical History / Comment(s): nasal surgery Type of Cardiac Device: Permanent Pacemaker Device Placement Date:: 2017 Past Psychological History: No Psychological Hx Reported Smoking Status: Never smoker Past Alcohol Use History: None Reported Past Drug Use History: None Reported - Past Family History Family Family Medical History: No Reported History Medications and Allergies Home Medications Medication Instructions Recorded Confirmed Type Amiodarone [Cordarone] 200 mg PO DAILY 01/03/19 03/11/19 History Atorvastatin [Lipitor] 10 mg PO HS 01/03/19 03/11/19 History Furosemide [Lasix] 40 mg PO PC-SUPPER 01/03/19 03/11/19 History Insulin Glargine,Hum.rec.anlog 44 unit SQ HS 01/03/19 03/11/19 History [Basaglar Kwikpen U-100] Metoprolol Succinate [Toprol XL] 100 mg PO BID 01/03/19 03/11/19 History amLODIPine [Norvasc] 5 mg PO DAILY 01/03/19 03/11/19 History metFORMIN HCL 1,000 mg PO BID 01/03/19 03/11/19 History Losartan Potassium 100 mg PO DAILY 01/19/19 03/11/19 History HYDROcodone/APAP 5-325MG [[place] 1 tab PO Q6H PRN #12 tab 01/22/19 03/11/19 Rx 5-325] Menthol [Biofreeze] 1 applic TOPICAL HS PRN 02/01/19 03/11/19 History Tamsulosin [Flomax] 0.4 mg PO DAILY 02/01/19 03/11/19 History Aspirin [Adult Low Dose Aspirin EC] 81 mg PO DAILY 03/11/19 03/11/19 History Furosemide [Lasix] 80 mg PO DAILY 03/11/19 03/11/19 History INSULIN ASPART (NovoLOG) [NovoLOG 5 unit SQ AC-TID 03/11/19 03/11/19 History (formulary)] INSULIN ASPART (NovoLOG) [NovoLOG See Protocol SQ AC-TID 03/11/19 03/11/19 History (formulary)] Latanoprost [Xalatan 0.005%] 1 drop BOTH EYES HS 03/11/19 03/11/19 History Allergies Allergy/AdvReac Type Severity Reaction Status Date / Time No Known Allergies Allergy Verified 03/11/19 21:53 Physical Exam Vitals: Vital Signs Temp Pulse Pulse Resp BP BP Pulse Ox 03/12/19 15:00 97.9 F 60 15 144/60 97 03/12/19 12:21 60 149/60 03/12/19 08:14 98.9 F 137/58 03/12/19 07:29 96 03/12/19 07:00 67 20 96 03/12/19 00:51 99.1 F 65 20 142/57 96 03/11/19 23:44 60 18 126/57 95 03/11/19 23:17 93 L 03/11/19 22:55 60 18 140/62 82 L 03/11/19 19:11 98.3 F 60 18 136/61 Intake and Output 03/12/19 03/12/19 03/12/19 06:59 14:59 22:59 Intake Total 290.225 160 Output Total 1100 Balance -809.775 160 Intake: IV 160 Sodium Chloride 0.9% 1, 160 000 ml @ 120 mls/hr IV . Q8H20M [facility] Rx#:[id number] Intake, IV Titration 290.225 0 Amount Heparin Sod,Pork in 0.45% 130.225 0 NaCl 25,000 unit In 0.45 % NaCl 1 250ml.bag @ 18 UNITS/KG/HR 17.962 mls/hr IV .[id number] [facility] Rx#: [id number] Sodium Chloride 0.9% 1, 160 000 ml @ 120 mls/hr IV . Q8H20M [facility] Rx#:[id number] Output: Urine 1100 Uretheral (Saenz) 700 Other: Voiding Method Indwelling Catheter Indwelling Catheter # Voids 500 Weight 99.79 kg Results CBC & Chem 7: 03/11/19 20:52 03/11/19 20:52 Labs: Abnormal Lab Results - Last 24 Hours (Table) 03/11/19 03/11/1903/11/20 Range/Units 20:52 20:52 20:52 WBC 16.8 H (3.8-10.6) k/uL RBC 3.25 L (4.30-5.90) m/uL Hgb 9.2 L D (13.0-17.5) gm/dL Hct 28.7 L (39.0-53.0) % Neutrophils # 15.0 H (1.3-7.7) k/uL APTT 20.1 L (22.0-30.0) sec D-Dimer (<0.60) mg/L FEU ABG pO2 (83-108) mmHg ABG HCO3 (21-25) mmol/L ABG Total CO2 (19-24) mmol/L ABG O2 Saturation (94-97) % BUN 31 H (9-20) mg/dL Creatinine 2.01 H (0.66-1.25) mg/dL POC Glucose (mg/dL) (75-99) mg/dL Calcium 8.3 L (8.4-10.2) mg/dL Urine Protein (Negative) 03/11/19 03/11/19 03/12/19 Range/Units 21:51 23:00 05:47 WBC (3.8-10.6) k/uL RBC (4.30-5.90) m/uL Hgb (13.0-17.5) gm/dL Hct (39.0-53.0) % Neutrophils # (1.3-7.7) k/uL APTT 144.1 H* (22.0-30.0) sec D-Dimer (<0.60) mg/L FEU ABG pO2 43 L* (83-108) mmHg ABG HCO3 26 H (21-25) mmol/L ABG Total CO2 27 H (19-24) mmol/L ABG O2 Saturation 79.5 L (94-97) % BUN (9-20) mg/dL Creatinine (0.66-1.25) mg/dL POC Glucose (mg/dL) (75-99) mg/dL Calcium (8.4-10.2) mg/dL Urine Protein Trace H (Negative) 03/12/19 03/12/19 03/12/19 Range/Units 07:56 11:25 11:38 WBC (3.8-10.6) k/uL RBC (4.30-5.90) m/uL Hgb (13.0-17.5) gm/dL Hct (39.0-53.0) % Neutrophils # (1.3-7.7) k/uL APTT 52.5 H (22.0-30.0) sec D-Dimer 7.79 H (<0.60) mg/L FEU ABG pO2 (83-108) mmHg ABG HCO3 (21-25) mmol/L ABG Total CO2 (19-24) mmol/L ABG O2 Saturation (94-97) % BUN (9-20) mg/dL Creatinine (0.66-1.25) mg/dL POC Glucose (mg/dL) 129 H 125 H (75-99) mg/dL Calcium (8.4-10.2) mg/dL Urine Protein (Negative) Thrombosis Risk Factor Assmnt - Choose All That Apply Any of the Below Risk Factors Present?: Yes Each Factor Represents 1 point: Medical pt on bed rest, Obesity (BMI >25) Other Risk Factors: Yes Each Risk Factor Represents 2 Points: Major surgery, Patient confined to bed Each Risk Factor Represents 3 Points: Age 75 years or older Other congenital or acquired thrombophilia - If yes, enter type in comment: Yes Each Risk Factor Represents 5 Points: Hip, pelvis, or leg fracture (< 1 month) Thrombosis Risk Factor Assessment Total Risk Factor Score: 14 Thrombosis Risk Factor Assessment Level: High Risk
[2019-03-12 16:45] LABS: Glucose,Whole Blood 130 mg/dL (75-99)
[2019-03-12] MEDS: HEPARIN SOD,PORK IN 0.45% NACL 25,000 UNIT in 0.45% NACL 1 250ML.BAG IV SCH (16:49)
--- NOTE | 2019-03-12 16:53 | ECHOF ---
Referral Reason:pre-op MEASUREMENTS -------- HEIGHT: 182.9 cm WEIGHT: 99.8 kg BP: 149/60 RVIDd: 3.8 cm (< 3.3) IVSd: 1.4 cm (0.6 - 1.1) LVIDd: 5.7 cm (3.9 - 5.3) LVPWd: 1.4 cm (0.6 - 1.1) IVSs: 1.9 cm LVIDs: 4.0 cm LVPWs: 1.8 cm LA Diam: 4.1 cm (2.7 - 3.8) Ao Diam: 3.8 cm (2.0 - 3.7) AV Cusp: 1.9 cm (1.5 - 2.6) MV EXCURSION: 14.013 mm (> 18.000) MV EF SLOPE: 96 mm/s (70 - 150) EPSS: 1.3 cm MV E Guero: 1.10 m/s MV DecT: 198 ms MV A Guero: 0.83 m/s MV E/A Ratio: 1.32 AV maxP.60 mmHg AV meanP.49 mmHg RAP: 5.00 mmHg RVSP: 46.44 mmHg FINDINGS -------- Sinus rhythm. This was a technically adequate study. The left ventricular size is normal. There is moderate concentric left ventricular hypertrophy. O verall left ventricular systolic function is low-normal with, an EF between 50 - 55 %. The right ventricle is mild to moderately enlarged. The left atrium is mildly dilated. The right atrium is normal in size. Interatrial and interventricular septum intact. The aortic valve is bicuspid. There is moderate aortic valve sclerosis. There is mild aortic regu rgitation. There is mild aortic stenosis present. Peak/mean gradient across the Aortic Valve is 3 2.60mmHg / 16.49mmHg. Mild mitral annular calcification present. Mild mitral regurgitation is present. Mild tricuspid regurgitation present. There is moderate pulmonary hypertension. The right ventric ular systolic pressure, as measured by Doppler, is 46.44mmHg. Trace/mild (physiologic) pulmonic regurgitation. The aortic root is dilated measuring 3.8cm. IVC Not well visulized. There is no pericardial effusion. CONCLUSIONS -------- 1. Sinus rhythm. 2. This was a technically adequate study. 3. The left ventricular size is normal. 4. There is moderate concentric left ventricular hypertrophy. 5. Overall left ventricular systolic function is low-normal with, an EF between 50 - 55 %. 6. The right ventricle is mild to moderately enlarged. 7. The left atrium is mildly dilated. 8. The right atrium is normal in size. 9. Interatrial and interventricular septum intact. 10. The aortic valve is bicuspid. 11. There is moderate aortic valve sclerosis. 12. There is mild aortic regurgitation. 13. There is mild aortic stenosis present. 14. Peak/mean gradient across the Aortic Valve is 32.60mmHg / 16.49mmHg. 15. Mild mitral annular calcification present. 16. Mild mitral regurgitation is present. 17. Mild tricuspid regurgitation present. 18. There is moderate pulmonary hypertension. 19. The right ventricular systolic pressure, as measured by Doppler, is 46.44mmHg. 20. Trace/mild (physiologic) pulmonic regurgitation. 21. The aortic root is dilated measuring 3.8cm. 22. IVC Not well visulized. 23. There is no pericardial effusion. SHIP PURSER: Tika Cancino RDCS
[2019-03-12] MEDS ORDERED: FUROSEMIDE 40 MG TAB PO SCH (18:30)
[2019-03-12 21:01] LABS: Glucose,Whole Blood 190 mg/dL (75-99)
[2019-03-12] MEDS: ATORVASTATIN 10 MG TAB PO SCH (21:20)
[2019-03-12] MEDS: LATANOPROST 0.005% OPHTH DROPS 2.5 ML BTL BOTH EYES SCH (21:20)
[2019-03-12] MEDS: INSULIN DETEMIR (LEVEMIR) 100 UNIT/ML SYR SQ SCH (21:21)
[2019-03-13] MEDS: MORPHINE SULFATE 4 MG/ML SYRINGE IV PRN ×3 (01:00→15:11)
[2019-03-13] MEDS: HEPARIN SOD,PORK IN 0.45% NACL 25,000 UNIT in 0.45% NACL 1 250ML.BAG IV SCH ×2 (04:18→07:43)
[2019-03-13 06:58] LABS: Glucose,Whole Blood 108 mg/dL (75-99)
[2019-03-13] MEDS: INSULIN ASPART (NovoLOG) 100 UNIT/ML VIAL SQ SCH ×11 (07:06→20:06)
--- NOTE | 2019-03-13 09:26 | NM ---
EXAMINATION TYPE: NM pul vent and perfuse DATE OF EXAM: 03/13/2019 COMPARISON: NONE HISTORY: Cough and difficulty breathing TECHNIQUE: Utilizing inhalation of 68.9 mCi Tc 99m DTPA aerosol and intravenous injection of 5.2 mCi of Tc 99m MAA, ventilation and perfusion images are acquired post injection in multiple projections. FINDINGS: Normal radiotracer distribution is noted in the lungs. There is no evidence of mismatched defects. IMPRESSION: THIS EXAMINATION IS LOW PROBABILITY FOR PULMONARY EMBOLUS.
[2019-03-13] MEDS: METOPROLOL SUCCINATE (ER) 100 MG TAB.ER.24H PO SCH ×2 (09:29→21:10)
[2019-03-13] MEDS: TAMSULOSIN 0.4 MG CAP.ER.24H PO SCH (09:29)
[2019-03-13] MEDS: LOSARTAN 50 MG TAB PO SCH (09:29)
[2019-03-13] MEDS: amLODIPine 5 MG TAB PO SCH (09:30)
[2019-03-13] MEDS: AMIODARONE 200 MG TAB PO SCH (09:30)
[2019-03-13] MEDS: PANTOPRAZOLE 40 MG/10 ML VIAL IV SCH (09:30)
[2019-03-13] MEDS: FUROSEMIDE 80 MG TAB PO SCH (09:30)
--- NOTE | 2019-03-13 11:25 | P.PN ---
Progress Note - Text Progress Note Date: 03/13/19 Orthopedics: History of present illness: asia is a 73-year-old male who is seen and examined at bedside for follow-up evaluation for his right intertrochanteric hip fracture. Patient is currently waiting for clearance from medicine and pulmonology prior to proceeding with surgical intervention for his right hip fracture. He has been cleared from a cardiac standpoint. He continues to have significant pain at the right hip. He remained nonweightbearing and on bedrest. He has a Saenz catheter intact. He admits to significant pain with any active range of motion right lower extremity. He continues with a high flow mask on. Nursing states a VQ scan was performed this morning as ordered by medicine. Patient is eager to proceed forward with surgical intervention in his right hip. Patient had previously been discussed with medicine and pulmonology currently planning for surgical clearance for surgical intervention 03/14/2019. Patient does have a significant medical history which includes diabetes mellitus, hyperlipidemia, h ypertension, and prostate disorder. Physical exam: Patient is awake, alert, and oriented 3 Vital signs stable Good chest excursion with deep inspiration and expiration Abdomen soft nontender Left lower extremity is shortened and internally rotated Pain with palpation of the left hip Significant pain with internal and external rotation of the left hip No pain with internal and external rotation of the right hip Neurovascularly intact bilateral lower extremities Dorsiflexion, plantarflexion, and extensor hallucis longus positive sustained bilaterally Calves are soft and supple; No signs or symptoms of DVT; No calf pain Saenz catheter intact Assessment: Right intertrochanteric hip fracture Right hip pain Right proximal humeral fracture Status post multiple falls Acute hypoxic respiratory failure Pacemaker placement Diabetes mellitus Hyperlipidemia Hypertension Chronic kidney disease stage III Prostate disorder Plan: 1. Patient has evidence of a right intertrochanteric hip fracture. We are currently planning for surgical intervention at his right hip once cleared by medicine and pulmonology. Once cleared, we'll plan to proceed forward with a right intramedullary nail fixation for right intertrochanteric hip fracture. We are currently planning for surgery tomorrow, 03/14/2019. Patient may continue eating today but will become nothing by mouth status starting at midnight, 03/14/2019. He remained on bedrest and nonweightbearing on right lower extremity. I discussed these issues with the patient at length and I answered all of their questions to the best of my ability and the patient understands. I discussed the risk of surgical intervention and alternative treatment options. The risk of surgical intervention was explained to the patient in detail including but not limited to risk of bleeding, risk of infection, risk and need for further surgery, risk of decreased loss of motion of function, malunion, nonunion, hardware failure, nerve damage, paralysis, heart attack, , as well as the fact that surgery may not alleviate her symptoms. I answered all the patient's questions the best of my ability. The patient would like to proceed forward with surgical intervention and will sign informed consent. 2. We will continue conservative treatment in regards to his right proximal humerus fracture as previously set forth by Dr. Radford the outpatient setting. 3. Patient will continue to be seen by medicine and pulmonology for further treatment, evaluation, and medical clearance
[2019-03-13 11:49] LABS: Glucose,Whole Blood 180 mg/dL (75-99)
--- NOTE | 2019-03-13 12:13 | XR ---
EXAMINATION TYPE: XR chest 1V portable DATE OF EXAM: 03/13/2019 HISTORY: persistent hypoxia. REFERENCE: Previous study dated 03/11/2019. FINDINGS: There is a bipolar pacemaker place on the left. Heart size upper limits of normal. There is vascular congestion without wiliam interstitial change. Th ere is some left basilar atelectasis. IMPRESSION: 1. LEFT BASILAR AIRSPACE DISEASE EITHER REPRESENTING ATELECTASIS OR PNEUMONIA. 2. VASCULAR CONGESTION. 3. I COULD NOT EXCLUDE A SMALL, LEFT EFFUSION.
[2019-03-13 12:23] LABS: Calcium 8.3 mg/dL (8.4-10.2); Potassium 3.7 mmol/L (3.5-5.1)
--- NOTE | 2019-03-13 12:29 | P.PN ---
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 He is seen and examined sitting up in bed in no acute distress. He continues to be mildly hypoxic on nasal cannula. Yesterday we requested d-dimer which came to be elevated at 7.7, second troponin negative. Bilateral lower extremity venous duplex negative for DVT. Right upper extremity duplex negative for DVT. VQ scan reveals low probability for PE. Echocar diogram obtained reveals preserved LV systolic function with ejection fraction 50-55%, aortic valve is bicuspid, mild aortic regurgitation, mild aortic stenosis with a mean gradient of 16 mmHg, mild MR, mild TR and moderate pulmonary hypertension with an RVSP of 46 mmHg. Blood pressure 153/63 with a heart rate of 60 oxygen saturation 91% on a nonrebreather. PHYSICAL EXAMINATION CONSTITUTIONAL: No apparent distress. HEENT: Head is normocephalic. Pupils are equal, round. Sclerae anicteric. Mucous membranes of the mouth are moist. No JVD. No carotid bruit. CHEST EXAMINATION: Lungs are clear to auscultation. No chest wall tenderness is noted on palpation or with deep breathing. HEART EXAMINATION: Regular rate and rhythm. S1, S2 heard. Systolic ejection murmur at the base and at the apex, no gallops or rub. EXTREMITIES: 2+ peripheral pulses, no lower extremity edema and no calf tenderness. Significant bruising and swelling to the right arm. ASSESSMENT Fall Right hip fracture Paroxysmal atrial fibrillation not on anti-coagulation due to brain bleed in the past Hypoxia Permanent pacemaker implantation Aortic stenosis. Hypertension PLAN Discussed with Dr. Hills that we would like transferred to ICU for ongoing hypoxia of unknown cause. Prognosis guarded. Repeat chest xray and BMP. We will request records from his primary recruitment assistant on Thursday to evaluate why not on long-term anti-coagulation. The patient is not quite sure however he states he did have bleeding in his brain 9 years ago. Surgical clearance per pulmonary care team. We will continue to follow and make recommendations accordingly. Nurse Practitioner note has been reviewed, I agree with a documented findings and plan of care. Patient was seen and examined. Objective - Vital Signs Vital signs: Vital Signs Temp 98.9 F 03/13/19 07:00 Pulse 60 03/13/19 07:00 Resp 15 03/13/19 07:00 BP 153/63 03/13/19 07:00 Pulse Ox 91 L 03/13/19 07:00 Intake & Output 03/12/19 03/13/19 03/13/19 18:59 06:59 18:59 Intake Total 275.511 60 223.038 Output Total 2650 Balance 275.511 -2590 223.038 Intake: IV 160 60 Sodium Chloride 0.9% 1, 160 60 000 ml @ 120 mls/hr IV . Q8H20M [facility] Rx#:[id number] Intake, IV Titration 115.511 223.038 Amount Heparin Sod,Pork in 0.45% 115.511 223.038 NaCl 25,000 unit In 0.45 % NaCl 1 250ml.bag @ 18 UNITS/KG/HR 17.962 mls/hr IV .[id number] [facility] Rx#: [id number] Output: Urine 2650 Other: Voiding Method Indwelling Catheter Indwelling Catheter # Voids 500 - Labs CBC & Chem 7: 03/11/19 20:52 03/13/19 11:57 Labs: Abnormal Lab Results - Last 24 Hours (Table) 03/12/19 03/12/19 03/12/19 Range/Units 11:25 11:38 16:41 APTT 52.5 H (22.0-30.0) sec D-Dimer 7.79 H (<0.60) mg/L FEU POC Glucose (mg/dL) 125 H 130 H (75-99) mg/dL 03/12/19 03/13/19 03/13/19 Range/Units 21:00 06:22 06:52 APTT 50.4 H (22.0-30.0) sec D-Dimer (<0.60) mg/L FEU POC Glucose (mg/dL) 190 H 108 H (75-99) mg/dL
--- NOTE | 2019-03-13 12:49 | P.PN ---
Subjective Progress Note Date: 03/13/19 03/13/2019 and seeing the patient for a follow-up. After having some improvement in oxygenation, the patient decompensated again and currently his back and on the percent nonrebreather facemask. Follow nasal cannula, the patient was having desaturations and he is post exhibition up onto the mid 80s. He is currently on 100% nonrebreather facemask. On lung exam, the patient is having crackles in the lung bases and he has significant rhonchi. His cough note some limited amount of mucus. Doppler of the lower extremities of been negative. Doppler of the right upper extremity has been negative. VQ scan was of a low probability. He remains on IV heparin. No chest pain. Echocardiogram showed a preserved LV function with [id number] aortic stenosis and moderate degree of pulmonary hypertension Objective - Vital Signs Vital signs: Vital Signs Temp 98.9 F 03/13/19 07:00 Pulse 80 03/13/19 10:26 Resp 15 03/13/19 07:00 BP 135/67 03/13/19 10:26 Pulse Ox 91 L 03/13/19 07:00 Intake & Output 03/12/19 03/13/19 03/13/19 18:59 06:59 18:59 Intake Total 275.511 60 223.038 Output Total 2650 Balance 275.511 -2590 223.038 Intake: IV 160 60 Sodium Chloride 0.9% 1, 160 60 000 ml @ 120 mls/hr IV . Q8H20M [facility] Rx#:[id number] Intake, IV Titration 115.511 223.038 Amount Heparin Sod,Pork in 0.45% 115.511 223.038 NaCl 25,000 unit In 0.45 % NaCl 1 250ml.bag @ 18 UNITS/KG/HR 17.962 mls/hr IV .[id number] [facility] Rx#: [id number] Output: Urine 2650 Other: Voiding Method Indwelling Catheter Indwelling Catheter Indwelling Catheter # Voids 500 - Exam The patient appeared well nourished and normally developed. Vital signs as documented. Head exam is unremarkable. No scleral icterus or corneal arcus noted. Neck is without jugular venous distension, thyromegaly, or carotid bruits. Carotid upstrokes are brisk bilaterally. Lungs are clear to auscultation and percussion. Cardiac exam reveals the PMI to be normally sized and situated. Rhythm is regular. First and second heart sounds normal. No murmurs, rubs or gallops. Abdominal exam reveals normal bowel sounds, no masses, no organomegaly and no aortic enlargement. (The patient's flat in bed has pain with any sort of motion in the right hip. Pain with internal/external rotation of his hip. His thigh and calf are soft nontender. His bilateral lower extremity edema which is equal bilaterally. He has sustained dorsal flexion plantarflexion and EHL intact. Sensory is intact. Abdomen soft his multiple bruises over his abdomen. His right upper extremity has induration and ecchymosis globally around his upper arm toward his elbow and his upper forearm. He has some pain in his right proximal humerus and history of recent shoulder fracture. He has good motion in his hands and fingers bilaterally. The patient has a pacemaker pocket over the left anterior chest area. - Labs CBC & Chem 7: 03/11/19 20:52 03/13/19 11:57 Labs: Abnormal Lab Results - Last 24 Hours (Table) 03/12/19 03/12/19 03/13/19 Range/Units 16:41 21:00 06:22 APTT 50.4 H (22.0-30.0) sec Carbon Dioxide (22-30) mmol/L BUN (9-20) mg/dL Creatinine (0.66-1.25) mg/dL Glucose (74-99) mg/dL POC Glucose (mg/dL) 130 H 190 H (75-99) mg/dL Calcium (8.4-10.2) mg/dL 03/13/19 03/13/19 03/13/19 Range/Units 06:52 11:32 11:57 APTT (22.0-30.0) sec Carbon Dioxide 31 H (22-30) mmol/L BUN 31 H (9-20) mg/dL Creatinine 1.84 H (0.66-1.25) mg/dL Glucose 160 H (74-99) mg/dL POC Glucose (mg/dL) 108 H 180 H (75-99) mg/dL Calcium 8.3 L (8.4-10.2) mg/dL Assessment and Plan Plan: 1 acute hypoxemic respiratory failure, asymptomatic. Rule out fat embolism knowing that the patient had a humeral fractures every week back. CHF along with interstitial edema, atelectatic changes and airway secretions and probably contributing to his hypoxemia. I feel that his presentation is most of the shunt and as such there is a possibility of fat embolism. 2 right humeral fracture, proximal, conservative management 3 right hip fracture intertrochanteric awaiting surgical repair pending medical clearance 4 pacemaker insertion 5 suspect CHF with valvular heart disease as the patient has a significant amount of murmur, awaiting an echocardiogram 6 recurrent falls 7 BPH 8 chronic kidney disease stage III 9 hyperlipidemia 10 hypertension 11 diabetes mellitus DEVAN Not clearing this patient for surgery. He is in the 100% nonrebreather facemask Doubt pulmonary embolism. Dopplers of been all negative. V/Q scan of his of a low probability. The patient did not respond to anticoagulation. He will be ta rosina off the IV heparin and placed on Lovenox 40 mg subcu prophylactic dose. Fat embolism is likely. Atelectatic changes in the lung bases and some mild pulmonary vascular congestion is also likely. The patient will be started on diuretics. Aggressive pulmonary toileting. Bronchodilators. Obtain a CAT scan of the chest without contrast. Echo was noted. Start IV lasix. We'll continue to follow.
[2019-03-13] MEDS: FUROSEMIDE 10 MG/ML 4 ML VIAL IV SCH ×2 (12:54→20:00)
[2019-03-13 14:22] LABS: Glucose,Whole Blood 256 mg/dL (75-99)
--- NOTE | 2019-03-13 14:37 | CT ---
EXAMINATION TYPE: CT chest wo con DATE OF EXAM: 03/13/2019 COMPARISON: None HISTORY: hypoxia CT DLP: 604.3 mGycm Automated exposure control for dose reduction was used. Multiple axial sections were obtained from the thoracic inlet to the diaphragm with no contrast. FINDINGS: There is extensive pulmonary airspace infiltrates and atelectasis in the lower lobes. I see no discre te pulmonary mass. Heart is enlarged. There are no hilar masses. There is no sign of mediastinal alfredito opathy. There is a left axillary pacemaker. There is no pneumothorax. There is no pericardial effusio n. There is severely comminuted fracture right shoulder. There is 50% offset. There is no dislocation. U pper abdominal soft tissues are intact. There is spurring in the thoracic spine. There is no compress ion fracture. IMPRESSION: Extensive lower lobe pulmonary infiltrates and atelectasis. Cardiomegaly. This could relate to conges tive heart failure. Also consider RDS. No suspicious pulmonary mass.
[2019-03-13 16:24] LABS: Basophils % (A) 0 %; Eosinophils # (A) 0.4 k/uL (0-0.7); Eosinophils % (A) 3 %; HCT 25.4 % (39.0-53.0); HGB 8.1 gm/dL (13.0-17.5); Lymphocytes # (A) 0.6 k/uL (1.0-4.8); Lymphocytes % (A) 5 %; MCH 28.7 pg (25.0-35.0); MCHC 31.9 g/dL (31.0-37.0); MCV 89.8 fL (80.0-100.0); Mean Platelet Volume 8.1; Monocytes # (A) 0.6 k/uL (0-1.0); Monocytes % (A) 4 %; Neutrophils # (A) 11.1 k/uL (1.3-7.7); Neutrophils % (A) 86 %; Platelet Count 143 k/uL (150-450); RBC 2.83 m/uL (4.30-5.90); RDW 14.4 % (11.5-15.5); WBC 12.8 k/uL (3.8-10.6)
[2019-03-13 16:43] LABS: Calcium 7.9 mg/dL (8.4-10.2); Magnesium 1.7 mg/dL (1.6-2.3); Phosphorus 3.3 mg/dL (2.5-4.5); Potassium 3.7 mmol/L (3.5-5.1)
[2019-03-13 17:17] LABS: Glucose,Whole Blood 186 mg/dL (75-99)
[2019-03-13] MEDS: HYDROcodone/APAP 5-325MG 1 EACH TAB PO PRN (18:45)
[2019-03-13 19:47] LABS: Glucose,Whole Blood 177 mg/dL (75-99)
[2019-03-13] MEDS: MAGNESIUM SULFATE-D5W PMX 1 GM in DEXTROSE/WATER 1 100ML.BAG IVPB SCH ×2 (19:58→21:24)
[2019-03-13] MEDS ORDERED: POTASSIUM CHLORIDE ER 20 MEQ TAB.ER PO SCH (20:00)
[2019-03-13] MEDS: ATORVASTATIN 10 MG TAB PO SCH (20:00)
[2019-03-13] MEDS: INSULIN DETEMIR (LEVEMIR) 100 UNIT/ML SYR SQ SCH (21:13)
[2019-03-13 21:24] LABS: Glucose,Whole Blood 255 mg/dL (75-99)
--- NOTE | 2019-03-13 21:25 | P.PN ---
Progress Note - Text Progress Note Date: 03/13/19 - Chief Complaint fall History of presenting complaint: This is a 73-year-old patient of Dr. Whitlock. Resident of [facility]. Chronic stable medical conditions include diabetes, hypertension, hyperlipidemia, BPH. History is obtained by the patient and the son of the bedside. Patient normally uses a walker. Oral. Total time patient been having falls. We will for quite some time. Patient described that he just loses his balance and goes down. Denies any obvious dizziness or lightheadedness. No palpitations. Patient also been noticed to be short of breath but the son going on for some time. Patient is also had chronic swelling of the lower extremit ies. Otherwise patient appetite is fair bowel movements are fair. On this occasion patient recently did have a fracture of the right upper humerus. 4 days ago patient fell down and fractured his humerus yet again. Yesterday patient again had a fall at this time was noted to have a fracture of the right femur. Patient advised was admitted to my colleague orthopedic service. Patient is found to be significantly hypoxic in the ER and is a suspicion of fat embolism. Patient started and IV heparin. Patient is found to be significantly hypoxic on the blood gases. Patient's surgery has been postponed for right now. Today-VQ scan done earlier today came back showing low probability. Discussed with Dr. Hills. IV heparin discontinued. Patient scored a bit short of breath tachypneic at rest. Congested. Insisting to go for surgery. Informed consent to do the same. Earlier did receive some IV Lasix. Review of systems: Was done for constitutional, cardiovascular, GI, pulmonary. relevant finding as above Active Medications Hydrocodone Bitart/Acetaminophen ([place] 5-325) 1 each PO Q6H PRN PRN Reason: Pain Last Admin: 03/13/19 18:45 Dose: 1 each Documented by: Amiodarone HCl (Cordarone) 200 mg PO DAILY [facility] Last Admin: 03/13/19 09:30 Dose: 200 mg Documented by: Amlodipine Besylate (Norvasc) 5 mg PO DAILY [facility] Last Admin: 03/13/19 09:30 Dose: 5 mg Documented by: Atorvastatin Calcium (Lipitor) 10 mg PO HS [facility] Last Admin: 03/13/19 20:00 Dose: 10 mg Documented by: Furosemide (Lasix) 40 mg IV Q12HR [facility] Last Admin: 03/13/19 20:00 Dose: 40 mg Documented by: Heparin Sodium (Porcine) (Heparin) 0 unit IV PER PROTOCOL PRN; Protocol PRN Reason: Low PTT Heparin Sodium/Sodium Chloride (25,000 unit/ Sodium Chloride) 250 mls @ 17.962 mls/hr IV .[id number] [facility]; Protocol Last Admin: 03/13/19 07:43 Dose: 15 units/kg/hr, 14.969 mls/hr Documented by: Magnesium Sulfate/Dextrose 1 (gm/ IV Solution) 100 mls @ 100 mls/hr IVPB Q1H [facility] Stop: 03/13/19 21:59 Last Admin: 03/13/19 19:58 Dose: 100 mls/hr Documented by: Insulin Aspart (Novolog) 0 unit SQ [facility]; Protocol Last Admin: 03/13/19 20:06 Dose: 2 unit Documented by: Insulin Aspart (Novolog) 5 unit SQ AC-TID [facility] Last Admin: 03/13/19 17:11 Dose: 5 unit Documented by: Insulin Aspart (Novolog) 0 unit SQ [facility]; Protocol Last Admin: 03/13/19 19:59 Dose: Not Given Documented by: Insulin Detemir (Levemir) 34 unit SQ HS [facility] Last Admin: 03/13/19 21:13 Dose: 34 unit Documented by: Latanoprost (Xalatan 0.005%) 1 drops BOTH EYES [facility] Last Admin: 03/12/19 21:20 Dose: 1 drops Documented by: Losartan Potassium (Cozaar) 100 mg PO DAILY [facility] Last Admin: 03/13/19 09:29 Dose: 100 mg Documented by: Metoprolol Succinate (Toprol Xl) 100 mg PO BID [facility] Last Admin: 03/13/19 21:10 Dose: 100 mg Documented by: Morphine Sulfate (Morphine Sulfate (Inj)) 4 mg IV Q4HR PRN PRN Reason: Severe Pain Last Admin: 03/13/19 15:11 Dose: 4 mg Documented by: Naloxone HCl (Narcan) 0.2 mg IV Q2M PRN PRN Reason: Opioid Reversal Ondansetron HCl (Zofran) 4 mg IVP Q8HR PRN PRN Reason: Nausea And Vomiting Pantoprazole Sodium (Protonix) 40 mg IV DAILY [facility] Last Admin: 03/13/19 09:30 Dose: 40 mg Documented by: Tamsulosin HCl (Flomax) 0.4 mg PO DAILY [facility] Last Admin: 03/13/19 09:29 Dose: 0.4 mg Documented by: Physical examination: VITAL SIGNS: 98.9, 60, 15, 153/63, 91% on nonrebreather 15 L GENERAL: Laying in bed tired awake short of breath EYES: Pupils equal. Conjunctiva normal. HEENT: External appearance of nose and ears normal, oral cavity grossly normal. NECK: JVD unable to assess; masses not palpable. HEART: [First and second heart sounds are normal; edema present. LUNGS:[ Respiratory rate increased, congested chest, decreased breath sounds. ABDOMEN: Soft, nontender, liver spleen not palpable, no masses palpable. PSYCH: Alert and oriented x3; mood and affect very anxious. EXTREMITY: Right upper extremity is swollen with some bruising around the elbow, as per the son this is been present for quite some time since the previous fracture Limited range of motion of the right hip INVESTIGATIONS, reviewed in the clinical context: VQ scan-low probability White count 16.8 hemoglobin 9.2 platelets 151 ABG-pH 7.45 pO2 43 pCO2 38 Bun 31 and creatinine 2.01 proBNP 1800 Chest x-ray film personally reviewed by me-cardiomegaly and some pulmonary congestion EKG tracing personally reviewed by me-paced rhythm with poor baseline X-ray right hip-IT fracture 2-D echo-moderate concentric left ventricular hypertrophy, EF 50-55%, moderate aortic valve sclerosis Assessment: -This is a patient who is been having poor balance for some time. Frequent falls. This has resulted in a fracture of the right humerus recently and right femur on this admission. -Acute hypoxic respiratory failure severe, , from pneumonia, secretions and possible fluid overload, worsening -Pneumonia suspect gram-negative organism, -Possible acute on chronic congestive heart failure exacerbation from diastolic dysfunction EF 50-55% -Hypertensive heart disease -Diabetes mellitus type 2 on oral hypoglycemic -Essential hypertension -Hyperlipidemia -BPH -Chronic kidney disease stage III likely from diabetic nephropathy and hypertensive nephrosclerosis -Right humerus fracture secondary to fall -Right femur IT fracture secondary to fall -Full code Plan: Patient's respiratory status is worsening. VQ scan is low probability for PE. Patient is possibly developing pneumonia and or fluid overload in addition. IV heparin being discontinued. Given Lasix. Will add cefepime. Also add Mucinex. Will check both patient's proBNP and pro calcitonin. Late in the day patient was moved to the ICU because of respiratory status.
[2019-03-13] MEDS: LATANOPROST 0.005% OPHTH DROPS 2.5 ML BTL BOTH EYES SCH (21:56)
[2019-03-13] MEDS: guaiFENesin 600 MG TABLET.ER PO SCH (21:56)
[2019-03-13] MEDS: CEFEPIME 1 GM in SODIUM CHLORIDE 0.9% 50 ML IVPB SCH (21:56)
[2019-03-14] MEDS: MORPHINE SULFATE 4 MG/ML SYRINGE IV PRN ×2 (00:04→15:24)
[2019-03-14 05:11] LABS: HCT 26.2 % (39.0-53.0); HGB 8.7 gm/dL (13.0-17.5); Hypochromasia Slight; MCH 29.9 pg (25.0-35.0); MCV 90.6 fL (80.0-100.0); Mean Platelet Volume 8.8; Platelet Count 216 k/uL (150-450); RDW 14.5 % (11.5-15.5); WBC 15.2 k/uL (3.8-10.6)
[2019-03-14 06:00] LABS: Calcium 8.4 mg/dL (8.4-10.2); Potassium 4.1 mmol/L (3.5-5.1)
[2019-03-14] MEDS: HEPARIN SOD,PORK IN 0.45% NACL 25,000 UNIT in 0.45% NACL 1 250ML.BAG IV SCH (06:55)
[2019-03-14] MEDS: HYDROcodone/APAP 5-325MG 1 EACH TAB PO PRN (06:56)
[2019-03-14 07:17] LABS: Glucose,Whole Blood 140 mg/dL (75-99)
[2019-03-14] MEDS: INSULIN ASPART (NovoLOG) 100 UNIT/ML VIAL SQ SCH ×10 (07:36→21:24)
[2019-03-14 07:50] LABS: Glucose,Whole Blood 123 mg/dL (75-99)
[2019-03-14] MEDS: amLODIPine 5 MG TAB PO SCH (09:12)
[2019-03-14] MEDS: METOPROLOL SUCCINATE (ER) 100 MG TAB.ER.24H PO SCH ×2 (09:12→21:24)
[2019-03-14] MEDS: AMIODARONE 200 MG TAB PO SCH (09:13)
[2019-03-14] MEDS: FUROSEMIDE 10 MG/ML 4 ML VIAL IV SCH ×2 (09:13→21:24)
[2019-03-14] MEDS: guaiFENesin 600 MG TABLET.ER PO SCH ×2 (09:13→21:24)
[2019-03-14] MEDS: LOSARTAN 50 MG TAB PO SCH (09:13)
[2019-03-14] MEDS: HEPARIN SODIUM,PORCINE 5,000 UNIT/ML 1 ML VIAL SQ SCH ×2 (09:13→21:24)
[2019-03-14] MEDS: PANTOPRAZOLE 40 MG/10 ML VIAL IV SCH (09:16)
[2019-03-14] MEDS: TAMSULOSIN 0.4 MG CAP.ER.24H PO SCH (09:16)
--- NOTE | 2019-03-14 09:27 | XR ---
EXAMINATION TYPE: XR chest 1V portable DATE OF EXAM: 03/14/2019 COMPARISON: Prior chest x-ray 03/13/2019 HISTORY: Shortness of breath TECHNIQUE: Single frontal view of the chest is obtained. FINDINGS: The patient is rotated. There are overlying cardiac leads. Generator is present in the left pectoral region, there are leads in the right atrium and ventricle. Heart size is stable. Suspect so me improvement in aeration within the lungs. No evident pneumothorax or pleural effusion. IMPRESSION: Improvement in aeration
[2019-03-14] MEDS: CEFEPIME 1 GM in SODIUM CHLORIDE 0.9% 50 ML IVPB SCH ×2 (09:37→21:25)
--- NOTE | 2019-03-14 10:53 | PN ---
PROGRESS NOTE Mr. Hoffmann was transferred from the medical floor to ICU because of severe persistent hypoxemia. CAT scan without contrast revealed bilateral pneumonia, which is probably responsible for hypoxia. He has history of mild to moderate aortic stenosis, preserved LV systolic function, recently had a fall with fracture of the femur. In the light of bilateral pneumonia and hypoxemia, his surgery was delayed. I am recommending that we place him on subcu heparin instead of IV heparin. There is no evidence of pulmonary embolism. Fat embolism cannot be totally excluded, but all the venous Dopplers were negative. Vitals are stable. Oxygenation has improved, S1-S2 heard normally, short systolic murmur noted at the base of the heart. Lungs reveal rales on both bases. Abdomen and lower extremity exam otherwise unchanged. Echo revealed preserved systolic function, mild to moderate aortic stenosis. The patient has an underlying pacemaker which appears to be functioning well. Patient, if he goes for surgery. remains at a higher than usual risk given his multiple comorbid conditions including hypoxemia and pneumonia. I would recommend we wait another 24 hours for hypoxemia to improve and we will await further input from Pulmonology. MMODL / IJN: [id number] /
[2019-03-14 12:23] LABS: Glucose,Whole Blood 121 mg/dL (75-99)
--- NOTE | 2019-03-14 12:41 | P.PN ---
Subjective Progress Note Date: 03/14/19 Principal diagnosis: Acute hypoxemic respiratory failure secondary to bibasilar atelectasis and possibly fat embolism. 03/13/2019 and seeing the patient for a follow-up. After having some improvement in oxygenation, the patient decompensated again and currently his back and on the percent nonrebreather facemask. Follow nasal cannula, the patient was having desaturations and he is post exhibition up onto the mid 80s. He is currently on 100% nonrebreather facemask. On lung exam, the patient is having crackles in the lung bases and he has significant rhonchi. His cough no te some limited amount of mucus. Doppler of the lower extremities of been negative. Doppler of the right upper extremity has been negative. VQ scan was of a low probability. He remains on IV heparin. No chest pain. Echocardiogram showed a preserved LV function with [id number] aortic stenosis and moderate degree of pulmonary hypertension Patient was reevaluated today on 03/14/2019, remains in the ICU, patient has made a significant improvement, he is now on 3 L nasal cannula with O2 saturation of 95%. Patient is feeling better, breathing easier, his workup for pulmonary embolism was negative. His CT of the chest showed mostly bibasilar atelectasis which seems to be improving at bedtime chest x-ray today. Considering the profound hypoxemia on presentation and considering his hip fracture, fat pulmonary embolism is likely compounded by bibasilar atelectasis. Patient again is feeling better, and I will go ahead and clear him for surgery nonetheless the patient remains moderate to high operative risk, but no absolute contraindication to hip surgery at this point. He has to be cleared however by cardiology. Patient does have significant valvular heart disease, and signi ficant pulmonary hypertension. This was noted on his echocardiogram. Objective - Vital Signs Vital signs: Vital Signs Temp 97.6 F 03/14/19 08:00 Pulse 63 03/14/19 10:00 Resp 7 L 03/14/19 10:00 BP 138/61 03/14/19 10:00 Pulse Ox 93 L 03/14/19 09:00 Intake & Output 03/13/19 03/14/19 03/14/19 18:59 06:59 18:59 Intake Total 424.272 7210 160 Output Total 1435 1385 625 Balance -871.962 -225 -465 Weight 98.1 kg Intake: IV 100 370 160 Cefepime 1 gm In Sodium 50 100 Chloride 0.9% 50 ml @ 100 mls/hr IVPB Q12HR [facility] Rx #:[id number] KVO/Carrier 80 220 60 Magnesium Sulfate-D5w Pmx 100 1 gm In Dextrose/Water 1 100ml.bag @ 100 mls/hr IVPB Q1H [facility] Rx#: [id number] Sodium Chloride 0.9% 1, 20 000 ml @ 120 mls/hr IV . Q8H20M [facility] Rx#:[id number] Intake, IV Titration 223.038 250 Amount Heparin Sod,Pork in 0.45% 223.038 250 NaCl 25,000 unit In 0.45 % NaCl 1 250ml.bag @ 18 UNITS/KG/HR 17.962 mls/hr IV .Q60P01H [facility] Rx#: [id number] Oral 240 540 Output: Urine 1435 1385 625 Uretheral (Saenz) 600 Other: Voiding Method Indwelling Catheter Indwelling Catheter Indwelling Catheter - Exam GENERAL: Revealed 73-year-old white male on 3 L nasal cannula, in no distress. EYES: PERRLA, EOMI, no active. HEENT: External appearance of nose and ears normal, oral cavity grossly normal. NECK: JVD unable to assess; no neck masses no JVD. No thyromegaly. No stridor. HEART: Normal S1 and S2, 2/6 systolic murmur throughout the precordium. LUNGS:[Diminished breath sounds at the bases no rhonchi and no wheezes. ABDOMEN: Soft, nontender, liver spleen not palpable, no masses palpable. PSYCH: Normal mood, affect and normal mental status examination EXTREMITY: Right upper extremity is swollen with some bruising around the elbow, Limited range of motion of the right hip Neurologic: Alert and oriented 3, no gross focal deficits. - Labs CBC & Chem 7: 03/14/19 04:51 03/14/19 04:51 Labs: Abnormal Lab Results - Last 24 Hours (Table) 03/13/19 03/13/19 03/13/19 Range/Units 14:10 16:03 16:03 WBC 12.8 H (3.8-10.6) k/uL RBC 2.83 L (4.30-5.90) m/uL Hgb 8.1 L (13.0-17.5) gm/dL Hct 25.4 L (39.0-53.0) % Plt Count 143 L (150-450) k/uL Neutrophils # 11.1 H (1.3-7.7) k/uL Lymphocytes # 0.6 L (1.0-4.8) k/uL APTT (22.0-30.0) sec Sodium (137-145) mmol/L BUN 33 H (9-20) mg/dL Creatinine 1.95 H (0.66-1.25) mg/dL Glucose 192 H (74-99) mg/dL POC Glucose (mg/dL) 256 H (75-99) mg/dL Calcium 7.9 L (8.4-10.2) mg/dL 03/13/19 03/13/19 03/13/19 Range/Units 17:06 19:35 21:13 WBC (3.8-10.6) k/uL RBC (4.30-5.90) m/uL Hgb (13.0-17.5) gm/dL Hct (39.0-53.0) % Plt Count (150-450) k/uL Neutrophils # (1.3-7.7) k/uL Lymphocytes # (1.0-4.8) k/uL APTT (22.0-30.0) sec Sodium (137-145) mmol/L BUN (9-20) mg/dL Creatinine (0.66-1.25) mg/dL Glucose (74-99) mg/dL POC Glucose (mg/dL) 186 H 177 H 255 H (75-99) mg/dL Calcium (8.4-10.2) mg/dL 03/14/19 03/14/19 03/14/19 Range/Units 04:51 04:51 04:51 WBC 15.2 H (3.8-10.6) k/uL RBC 2.90 L (4.30-5.90) m/uL Hgb 8.7 L (13.0-17.5) gm/dL Hct 26.2 L (39.0-53.0) % Plt Count (150-450) k/uL Neutrophils # (1.3-7.7) k/uL Lymphocytes # (1.0-4.8) k/uL APTT 53.5 H (22.0-30.0) sec Sodium 135 L (137-145) mmol/L BUN 33 H (9-20) mg/dL Creatinine 1.85 H (0.66-1.25) mg/dL Glucose 140 H (74-99) mg/dL POC Glucose (mg/dL) (75-99) mg/dL Calcium (8.4-10.2) mg/dL 03/14/19 03/14/19 03/14/19 Range/Units 07:06 07:39 12:11 WBC (3.8-10.6) k/uL RBC (4.30-5.90) m/uL Hgb (13.0-17.5) gm/dL Hct (39.0-53.0) % Plt Count (150-450) k/uL Neutrophils # (1.3-7.7) k/uL Lymphocytes # (1.0-4.8) k/uL APTT (22.0-30.0) sec Sodium (137-145) mmol/L BUN (9-20) mg/dL Creatinine (0.66-1.25) mg/dL Glucose (74-99) mg/dL POC Glucose (mg/dL) 140 H 123 H 121 H (75-99) mg/dL Calcium (8.4-10.2) mg/dL Assessment and Plan Assessment: Impression: Acute hypoxic respiratory failure, most likely secondary to profound bibasilar atelectasis, possible pneumonia, and possible fat embolism. Suspect acute on chronic diastolic congestive heart failure Valvular heart disease including aortic sclerosis, mitral regurgitation, and pulmonary hypertension. Essential hypertension, with hypertensive nephrosclerosis. Chronic kidney disease stage III Type 2 diabetes with diabetic nephropathy. Right femoral fracture secondary to fall, Recommendation: Considering the dramatic improvement in his oxygenation I will go ahead and clear the patient for surgery, however he remains moderate to high operative risk. Would also need to be cleared by cardiology. In the meantime continue incentive spirometry, continue medications as listed including diuretics, antibiotics, cardiac meds/amiodarone, and continue close monitoring of the blood pressure. Recommend early ambulation. We'll continue to follow-up Time with Patient: Less than 30
--- NOTE | 2019-03-14 13:13 | P.PN ---
Progress Note - Text Progress Note Date: 03/14/19 Orthopedics: History of present illness: [place] is a 73-year-old male who is seen and examined at bedside for follow-up evaluation for his right intertrochanteric hip fracture. Patient transferred to the ICU yesterday due to decreasing respiratory status. Since that time he's had significant improvement. He is currently at 92% oxygen saturation level on 2 L of oxygen. He has been cleared for surgical intervention by pulmonology and medicine today. Patient is eager to proceed forward with surgical intervention of his right hip. He has been cleared from a cardiac standpoint. He continues to have significant pain at the right hip. He remained nonweightbearing and on bedrest. He has a Saenz catheter intact. He admits to significant pain with any active range of motion right lower extremity. Patient does have a significant medical history which includes diabetes mellitus, hyperlipidemia, hypertension, and prostate disorder. Physical exam: Patient is awake, alert, and oriented 3 Vital signs stable Good chest excursion with deep inspiration and expiration Abdomen soft nontender Right lower extremity is shortened and internally rotated Pain with palpation of the right hip Significant pain with internal and external rotation of the right hip No pain with internal and external rotation of the left hip Neurovascularly intact bilateral lower extremities Dorsiflexion, plantarflexion, and extensor hallucis longus positive sustained bilaterally Calves are soft and supple; No signs or symptoms of DVT; No calf pain Saenz catheter intact Assessment: Right intertrochanteric hip fracture Right hip pain Right proximal humeral fracture Status post multiple falls Acute hypoxic respiratory failure Pacemaker placement Diabetes mellitus Hyperlipidemia Hypertension Chronic kidney disease stage III Prostate disorder Plan: 1. Patient has evidence of a right intertrochanteric hip fracture. We are currently planning for surgical intervention at his right hip once cleared by medicine and pulmonology. Patient has been cleared to proceed forward with surgical intervention today. We will plan to proceed forward with a right intramedullary nail fixation for right intertrochanteric hip fracture today, 03/14/2019. Patient is currently nothing by mouth status anticipation for surgical intervention. He remained on bedrest and nonweightbearing on right lower extremity. I discussed these issues with the patient at length and I answered all of their questions to the best of my ability and the patient understands. I discussed the risk of surgical intervention and alternative treatment options. The risk of surgical intervention was explained to the patient in detail including but not limited to risk of bleeding, risk of infection, risk and need for further surgery, risk of decreased loss of motion of function, malunion, nonunion, hardware failure, nerve damage, paralysis, heart attack, , as well as the fact that surgery may not alleviate her symptoms. I answered all the patient's questions the best of my ability. The patient would like to proceed forward with surgical intervention and will sign informed consent. 2. We will continue conservative treatment in regards to his right proximal humerus fracture as previously set forth by Dr. Radford the outpatient setting. 3. Patient will continue to be seen by medicine, cardiology, and pulmonology for further treatment and evaluation
[2019-03-14] MEDS ORDERED: SODIUM CHLORIDE 0.9% 1,000 ML IV ONE (18:05)
[2019-03-14] MEDS ORDERED: ceFAZolin 1,000 MG VIAL ONE (18:09)
[2019-03-14] MEDS ORDERED: PHENYLEPHRINE-0.9% NACL SYG 1 MG/10 ML SYRINGE ONE (18:09)
[2019-03-14] MEDS ORDERED: PROPOFOL 10 MG/ML 20 ML VIAL IV ONE (18:09)
[2019-03-14] MEDS ORDERED: MIDAZOLAM 2 MG/2 ML VIAL ONE (18:09)
[2019-03-14] MEDS ORDERED: SODIUM CHLORIDE 0.9% 50 ML with ceFAZolin 2,000 MG IV ONE ×2 (18:20)
[2019-03-14] MEDS ORDERED: MAGNESIUM HYDROXIDE 2,400 MG/10 ML CUP PO PRN (20:03)
[2019-03-14] MEDS ORDERED: NALOXONE 0.4 MG/ML 1 ML VIAL IV PRN (20:03)
[2019-03-14] MEDS ORDERED: ONDANSETRON 4 MG/2 ML VIAL IVP PRN (20:03)
[2019-03-14] MEDS ORDERED: HYDROcodone/APAP 5-325MG 1 EACH TAB PO PRN (20:03)
--- NOTE | 2019-03-14 20:15 | P.OP ---
Date of Procedure: 03/14/19 Preoperative Diagnosis: Right hip intertrochanteric femur fracture with soap trochanteric fracture extension, acute displaced due to fall Right hip pain due to fracture Recent history of right proximal humerus fracture Postoperative Diagnosis: Same Anesthesia: spinal Pathology: other (Proximal femur reaming sent to pathology) Condition: stable Disposition: PACU Description of Procedure: Preoperative diagnosis: Right hip intertrochanteric femur fracture with soap trochanteric fracture extension, acute displaced due to fall Right hip pain due to fracture Recent history of right proximal humerus fracture Postoperative diagnosis: Same Procedure: intertrochanteric hip screw placement with long alexandra Use of fluoroscopic guidance Closed reduction Surgeon: Dr. Kevin Koch.: [place] who is present that the entire the case persistence during positioning dissection exposure placement of hardware and closure Anesthesia: Spinal per Dr. Klein Estimated blood loss: Approximately 100 mL Components implanted: [employer] intramedullary hip screw with a long alexandra measuring 11.5 x 40 cm with 125 angle with a 110 mm lag screw and a distal locking screw and a compression screw Disposition: To recovery room in good stable condition Operative indications The patient sustained a injury and suffered a hip fracture at the inter- trochanteric area with extension to the subtrochanteric aspect of of his femur which was displaced and angulated. The patient recently had a number of falls and had sustained a fracture of his proximal humerus several days before fracturing his femur. He was evaluated and was treated conservatively with immobilization and management. He was given very specific instructions and is somewhat difficult to determine the level of complaints that he has. The patient unfortunately had another fall and sustained a fracture at his right hip. We were involved in the case in regard to his hip fracture. After evaluation it was determined that they would be a candidate for hip internal fixation and stabilization via surgical intervention. This would give them the best chance of mobilization and ambulation. We discussed the range of treatment options from conservative to surgical. They elected proceed with surgical intervention. We answered their questions to the best of our ability healing which they can understand. They signed an informed consent. The patient had a number of pulmonary issues preoperatively and was being evaluated and managed closely with medicine and pulmonary service. The patient has been having improvement over the past day and was cleared for surgical intervention for his right femur fracture. Operative summary After obtaining informed consent evaluation by anesthesia, preoperative evaluation and clearance for medical service, the patient was identified and prepped Saenz area and the surgical site was marked at the right hip. There brought to the operating room where the given appropriate anesthesia by the anesthesia department in standard fashion without any complications. Once the anesthesia was established we were able to position the patient. The patient was placed on a fracture table with a well-padded perineal post. The operative side on the right was placed in a foot hull stirrup which was well-padded well molded and placed in gentle in-line traction. The nonoperative leg was placed in a padded support. C-arm was brought in and we performed a closed reduction technique at the hip. We are able to get good alignment good position of the intertrochanteric fracture with gentle reduction techniques and traction utilizing the fracture table. Once patient was well positioned lower extremity was prepped and draped in normal standard sterile fashion. An appropriate keystone protocol and timeout was completed and were able to proceed with surgery. He started point just proximal to the greater trochanter was established and a median incision approximately 2 inches in length approximately to the greater trochanter on the right. I dissected down through the fascia and I was able to expose the tip of the greater trochanter. A sharp starting hole was established at the tip of the greater trochanter near the junction of the anterior and middle third. Positioning was confirmed with C-arm guidance. I was able to start the awl into the bone and then use a guidepin at the starting point establish down to the level of the lesser trochanter at the intramedullary space. I then used a starting reamer for the greater trochanter placed over the guidepin and reamed down appropriately under C-arm guidance. I was unable to place a guidepin into the intramedullary aspect of the femur and then reamed appropriately to the appropriate length. The positioning was confirmed on C-arm guidance. With the femur appropriately reamed I then chose the appropriate size intramedullary alexandra which was connected to the appropriate jig. The jig was checked for alignment. We placed a guide alexandra into the femur to assure good coverage at the subtrochanteric fracture. We placed near the metaphyseal diaphyseal junction distally of the femur and measured approximately 400 mm the appropriate alexandra was chosen. The area was copiously irrigated and suctioned dry and we're able place the alexandra at intramedullary space through the starting hole appropriately. It was seated down for appropriate position to align the leg pain into the femoral neck and head. The alignment was checked and found to be in good alignment and position throughout the entire femur. A second incision was established at the site for the placement of the lag screw area and the guide was established at the lateral aspect of the femur and a guidepin was drilled into the femoral neck and head and near center center position. With this appropriate alignment and position where a reamer over the guidepin making sure not to penetrate the articular surface. The position was confirmed on C- arm guidance in AP and lateral positions. With this established we were able to place the appropriate size lag screw after measuring. Lag screw was placed into the femoral neck and head good alignment good position with excellent bony purchase. It was appropriately aligned and we placed a locking compression screw screw through the alexandra appropriately and checked that the position was established. I was able to drill and place the compression screw immediately adjacent and inferior to the lag screw which gave good compression across the fracture site in good alignment and position. With the area in good position able place a distal locking screw. I used a freehand technique utilizing C-arm guidance to place the distal locking screw. I was able get excellent alignment and position at the distal locking hole for a static screw at the distal locking hole. It was checked out of excellent alignment and position and excellent bony purchase area final images were taken which showed excellent alignment and position of the hardware and the fracture. With the alexandra in place and the fracture stable, although the incision sites were copiously irrigated and suctioned dry. Good hemostasis was maintained. Deep fascial layers were closed with #1 Vicryl. Subcu tissue was closed with 2-0 Vicryl. Subcuticular tissues closed with 3-0 Vicryl. Was are cleaned and dried with dressed with skin glue Telfa for a force and tape. Drapes were broken down, the hip was held in stable position with the post being removed safely once the positioning was stabilized. The patient was then transferred back to their hospital bed being careful to maintain the hip and C- spine alignment and airway. Once stable to patient was transferred back to the postanesthesia care unit to be readmitted for pain control and DVT prophylaxis medical management and monitoring and mobilization we will continue follow patient closely throughout their postoperative course.
[2019-03-14 20:58] LABS: Glucose,Whole Blood 159 mg/dL (75-99)
[2019-03-14] MEDS: INSULIN DETEMIR (LEVEMIR) 100 UNIT/ML SYR SQ SCH (21:23)
[2019-03-14] MEDS: SENNOSIDES-DOCUSATE SODIUM 1 EACH TAB PO SCH (21:24)
[2019-03-14] MEDS: ATORVASTATIN 10 MG TAB PO SCH (21:25)
[2019-03-14] MEDS: LATANOPROST 0.005% OPHTH DROPS 2.5 ML BTL BOTH EYES SCH (21:26)
[2019-03-14 21:30] LABS: Glucose,Whole Blood 246 mg/dL (75-99)
[2019-03-14 22:49] LABS: Basophils % (A) 0 %; Eosinophils # (A) 0.3 k/uL (0-0.7); Eosinophils % (A) 2 %; HCT 27.3 % (39.0-53.0); HGB 8.7 gm/dL (13.0-17.5); Lymphocytes # (A) 0.7 k/uL (1.0-4.8); Lymphocytes % (A) 5 %; MCH 28.3 pg (25.0-35.0); MCHC 31.9 g/dL (31.0-37.0); MCV 88.7 fL (80.0-100.0); Mean Platelet Volume 8.9; Monocytes # (A) 0.5 k/uL (0-1.0); Monocytes % (A) 4 %; Neutrophils # (A) 11.8 k/uL (1.3-7.7); Neutrophils % (A) 87 %; Platelet Count 142 k/uL (150-450); RBC 3.07 m/uL (4.30-5.90); RDW 14.6 % (11.5-15.5); WBC 13.5 k/uL (3.8-10.6)
[2019-03-15] MEDS: MORPHINE SULFATE 4 MG/ML SYRINGE IV PRN (04:10)
[2019-03-15 05:26] LABS: Calcium 8.1 mg/dL (8.4-10.2); Potassium 3.7 mmol/L (3.5-5.1)
[2019-03-15 06:54] LABS: Glucose,Whole Blood 177 mg/dL (75-99)
[2019-03-15] MEDS ORDERED: POTASSIUM CHLORIDE ER 20 MEQ TAB.ER PO SCH (07:00)
[2019-03-15] MEDS: INSULIN ASPART (NovoLOG) 100 UNIT/ML VIAL SQ SCH ×7 (07:12→21:57)
--- NOTE | 2019-03-15 08:28 | XR ---
Limited right femur HISTORY: Open reduction internal fixation, fracture 4 intraoperative C-arm images document the procedure.
--- NOTE | 2019-03-15 08:29 | FL ---
Fluoroscopy HISTORY: Fracture 1.28 minutes fluoroscopy time supplied to the referring clinician. 4 intraoperative C-arm images doc ument the procedure. See dictated report from orthopedic surgery.
--- NOTE | 2019-03-15 08:46 | PN ---
PROGRESS NOTE Mr. Hoffmann is a gentleman who was admitted to the hospital after a fall and hip fracture and then became quite hypoxic. He had a right hip fracture, underwent surgery uneventfully. He is resting comfortably. His oxygenation has improved remarkably. His blood pressure is under good control. This gentleman has underlying permanent pacemaker and also has paroxysmal atrial fibrillation, but is maintaining sinus rhythm. Hemodynamically stable. Vitals are stable. JVD 1 cm, no carotid bruit. S1, S2 heard normally, short systolic murmur noted. Lungs reveal improved air entry. Abdomen and lower extremity exam is unchanged. Plan is to continue current medications. I will reduce the dose of his metoprolol from 100 to 50 mg b.i.d. and Lasix to 20 mg q.12 hours. Continue his IV fluids at the current rate. MMODL / IJN: [id number] /
[2019-03-15] MEDS: TAMSULOSIN 0.4 MG CAP.ER.24H PO SCH (08:47)
[2019-03-15] MEDS: PANTOPRAZOLE 40 MG TABLET PO SCH (08:47)
[2019-03-15] MEDS: LOSARTAN 50 MG TAB PO SCH (08:48)
[2019-03-15] MEDS: AMIODARONE 200 MG TAB PO SCH (08:49)
[2019-03-15] MEDS: amLODIPine 5 MG TAB PO SCH (08:49)
[2019-03-15] MEDS: ASPIRIN 81 MG PO SCH (08:49)
[2019-03-15] MEDS: FUROSEMIDE 10 MG/ML 4 ML VIAL IV SCH ×2 (08:50→21:55)
[2019-03-15] MEDS: CEFEPIME 1 GM in SODIUM CHLORIDE 0.9% 50 ML IVPB SCH ×2 (08:50→22:20)
[2019-03-15] MEDS: HEPARIN SODIUM,PORCINE 5,000 UNIT/ML 1 ML VIAL SQ SCH ×2 (08:50→21:55)
[2019-03-15] MEDS: guaiFENesin 600 MG TABLET.ER PO SCH ×2 (08:51→21:53)
--- NOTE | 2019-03-15 08:55 | XR ---
EXAMINATION TYPE: XR chest 1V portable DATE OF EXAM: 03/15/2019 COMPARISON: Prior chest 03/14/2019 HISTORY: Shortness of breath TECHNIQUE: Single frontal view of the chest is obtained. FINDINGS: Generator is in the left pectoral region, there are leads in the right atrium and ventricl e. A shunt is rotated. There is no focal air space opacity, pleural effusion, or pneumothorax seen. B andlike area of increased attenuation noted at the left hilar region. There are overlying leads, tubi ng. The cardiac silhouette size is stable, likely enlarged. The osseous structures are intact. IMPRESSION: There is improved aeration, minimal subsegmental atelectatic changes or scarring may be present.
[2019-03-15] MEDS ORDERED: METOPROLOL SUCCINATE (ER) 100 MG TAB.ER.24H PO SCH (09:00)
[2019-03-15 09:06] LABS: ABG Base Excess 6.3 mmol/L; ABG HCO3 30 mmol/L (21-25); ABG Oxygen Saturation 94.1 % (94-97); ABG PCO2 38 mmHg (35-45); ABG PO2 65 mmHg (83-108); ABG TCO2 31 mmol/L (19-24); Allen Test Performed? Yes
[2019-03-15 12:16] LABS: Glucose,Whole Blood 209 mg/dL (75-99)
--- NOTE | 2019-03-15 12:35 | P.PN ---
Progress Note - Text Progress Note Date: 03/15/19 Orthopedics: History present illness: Patient is a 73-year-old male who is seen and examined at the bedside following evaluation for his right intertrochanteric hip fracture. He is status post right hip intramedullary nail fixation for his right intratrochanteric hip fracture performed yesterday, 03/14/2019. He is not currently experiencing any significant pain in his right hip. He does have increased pain with the right lower extremity with movement of the right lower extremity. He continues remain in the ICU due to respiratory status. He has not been out of bed. He states he has not been eating much postoperatively due to lack of appetite. He continues to be seen by multiple medical providers including cardiology and medicine. Patient does have a significant medical history which includes diabetes mellitus, hyperlipidemia, hypertension, and prostate disorder. Patient is also known to have a right proximal humerus fracture which is being treated conservatively. He is not currently complaining of any pain in his right proximal humerus. Physical Exam Intramedullary [place] for Intertrochanteric Fracture: Status post surgical day number 1 Patient is examined lying in bed Patient is awake and alert, and oriented 3 Vital signs per stable Adequate chest excursion with deep inspiration and expiration; patient currently on O2 nasal cannula No signs or symptoms of DVT; no calf pain Lower extremity not currently cuffs in place bilaterally Dressing of the right hip is clean, dry, and intact; no erythema, purulence, or signs of infection No pain with palpation over the surgical sites Full range of motion of ankles bilaterally Dorsiflexion, plantarflexion, and extensor hallucis longus positive sustained bilaterally Neurovascularly intact bilateral lower extremities Capillary refill less than 2 seconds bilateral lower extremities Significant bruising with some swelling over the right proximal humerus Pain with any active or passive range of motion of the right shoulder Pain with palpation over the fracture site of the right proximal humerus Assessment: Status post right intramedullary nail fixation for left intertrochanteric hip fracture Status post multiple falls Right hip pain Right proximal humeral fracture Status post multiple falls Acute hypoxic respiratory failure Pacemaker placement Diabetes mellitus Hyperlipidemia Hypertension Chronic kidney disease stage III Prostate disorder Plan: 1. Patient to remain nonweightbearing on the right lower extremity; patient may work with physical therapy to increase mobility and ambulation 2. Keep dressing over the right hip clean, dry, and intact 3. Discontinue Saenz catheter when patient is able to increase mobility and ambulation 4. Continue pain control with oral [place] and IV Dilaudid as needed for pain control 5. Continue with anticoagulation therapy with heparin as controlled by medicine and cardiology 6. Medicine, cardiology, and pulmonology to continue following the patient for their other medical diagnosis 7. We'll continue to follow the patient closely; depending on the patient's progress, we may plan for discharge over the next couple days to a rehabilitation facility 8. Patient can follow-up with Bird Ramirez PA-C or Dr. Miky Brown at [facility] in 2-3 weeks following discharge
--- NOTE | 2019-03-15 13:04 | P.PN ---
Subjective Progress Note Date: 03/15/19 Principal diagnosis: Acute hypoxemic respiratory failure secondary to bibasilar atelectasis and possibly fat embolism. 03/13/2019 and seeing the patient for a follow-up. After having some improvement in oxygenation, the patient decompensated again and currently his back and on the percent nonrebreather facemask. Follow nasal cannula, the patient was having desaturations and he is post exhibition up onto the mid 80s. He is currently on 100% nonrebreather facemask. On lung exam, the patient is having crackles in the lung bases and he has significant rhonchi. His cough no te some limited amount of mucus. Doppler of the lower extremities of been negative. Doppler of the right upper extremity has been negative. VQ scan was of a low probability. He remains on IV heparin. No chest pain. Echocardiogram showed a preserved LV function with [id number] aortic stenosis and moderate degree of pulmonary hypertension Patient was reevaluated today on 03/14/2019, remains in the ICU, patient has made a significant improvement, he is now on 3 L nasal cannula with O2 saturation of 95%. Patient is feeling better, breathing easier, his workup for pulmonary embolism was negative. His CT of the chest showed mostly bibasilar atelectasis which seems to be improving at bedtime chest x-ray today. Considering the profound hypoxemia on presentation and considering his hip fracture, fat pulmonary embolism is likely compounded by bibasilar atelectasis. Patient again is feeling better, and I will go ahead and clear him for surgery nonetheless the patient remains moderate to high operative risk, but no absolute contraindication to hip surgery at this point. He has to be cleared however by cardiology. Patient does have significant valvular heart disease, and signi ficant pulmonary hypertension. This was noted on his echocardiogram. Patient was reevaluated today on 03/15/2019, remains in the ICU, he is only on 2 L nasal cannula, patient is status post right hip intertrochanteric screw placement with longer ride, closed reduction using fluoroscopy. He is post operative day #1. Patient is doing well, asymptomatic, no cough no wheezing no shortness of breath, asking to be fed, however there is a concern that the patient failed his swallow evaluation. Pulmonary-bland the patient is doing great, asymptomatic, and his chest x-ray showed significant improvement in his by basilar atelectasis. Hence I plan to transfer the patient out of the ICU today. Earlier ABG on 2 L showed a pO2 of 65 pCO2 of 38 pH of 7.50. Electrolytes were normal BUN is 34 creatinine 1.65. His renal status seems to be improving compared to admission renal status Objective - Vital Signs Vital signs: Vital Signs Temp 98.4 F 03/15/19 08:00 Pulse 62 03/15/19 11:00 Resp 7 L 03/15/19 11:00 BP 119/47 03/15/19 11:00 Pulse Ox 99 03/15/19 11:00 Intake & Output 03/14/19 03/15/19 03/15/19 18:59 06:59 18:59 Intake Total 350 970 130 Output Total 1375 1500 105 Balance -1025 -530 25 Weight 99.4 kg Intake: IV 350 970 130 Cefepime 1 gm In Sodium 100 50 100 Chloride 0.9% 50 ml @ 100 mls/hr IVPB Q12HR [facility] Rx #:[id number] KVO/Carrier 200 120 30 Output: Urine 1375 1400 105 Estimated Blood Loss 100 Other: Voiding Method Indwelling Catheter Indwelling Catheter Indwelling Catheter - Exam GENERAL: Revealed 73-year-old white male on 2L nasal cannula, asymptomatic. EYES: PERRLA, EOMI, no active. HEENT: External appearance of nose and ears normal, oral cavity grossly normal. NECK: JVD unable to assess; no neck masses no JVD. No thyromegaly. No stridor. HEART: Normal S1 and S2, 2/6 systolic murmur throughout the precordium. LUNGS:[Diminished breath sounds at the bases no rhonchi and no wheezes. ABDOMEN: Soft, nontender, liver spleen not palpable, no masses palpable. PSYCH: Normal mood, affect and normal mental status examination EXTREMITY: No clubbing, no cyanosis Limited range of motion of the right hip Neurologic: Alert and oriented 3, no gross focal deficits. - Labs CBC & Chem 7: 03/14/19 22:29 03/15/19 04:57 Labs: Abnormal Lab Results - Last 24 Hours (Table) 03/14/19 03/14/19 03/14/19 Range/Units 20:46 21:19 22:29 WBC 13.5 H (3.8-10.6) k/uL RBC 3.07 L (4.30-5.90) m/uL Hgb 8.7 L (13.0-17.5) gm/dL Hct 27.3 L (39.0-53.0) % Plt Count 142 L (150-450) k/uL Neutrophils # 11.8 H (1.3-7.7) k/uL Lymphocytes # 0.7 L (1.0-4.8) k/uL ABG pH (7.35-7.45) ABG pO2 (83-108) mmHg ABG HCO3 (21-25) mmol/L ABG Total CO2 (19-24) mmol/L Sodium (137-145) mmol/L BUN (9-20) mg/dL Creatinine (0.66-1.25) mg/dL Glucose (74-99) mg/dL POC Glucose (mg/dL) 159 H 246 H (75-99) mg/dL Calcium (8.4-10.2) mg/dL 03/15/19 03/15/19 03/15/19 Range/Units 04:57 06:43 09:04 WBC (3.8-10.6) k/uL RBC (4.30-5.90) m/uL Hgb (13.0-17.5) gm/dL Hct (39.0-53.0) % Plt Count (150-450) k/uL Neutrophils # (1.3-7.7) k/uL Lymphocytes # (1.0-4.8) k/uL ABG pH 7.50 H (7.35-7.45) ABG pO2 65 L (83-108) mmHg ABG HCO3 30 H (21-25) mmol/L ABG Total CO2 31 H (19-24) mmol/L Sodium 136 L (137-145) mmol/L BUN 34 H (9-20) mg/dL Creatinine 1.65 H (0.66-1.25) mg/dL Glucose 150 H (74-99) mg/dL POC Glucose (mg/dL) 177 H (75-99) mg/dL Calcium 8.1 L (8.4-10.2) mg/dL 03/15/19 Range/Units 12:05 WBC (3.8-10.6) k/uL RBC (4.30-5.90) m/uL Hgb (13.0-17.5) gm/dL Hct (39.0-53.0) % Plt Count (150-450) k/uL Neutrophils # (1.3-7.7) k/uL Lymphocytes # (1.0-4.8) k/uL ABG pH (7.35-7.45) ABG pO2 (83-108) mmHg ABG HCO3 (21-25) mmol/L ABG Total CO2 (19-24) mmol/L Sodium (137-145) mmol/L BUN (9-20) mg/dL Creatinine (0.66-1.25) mg/dL Glucose (74-99) mg/dL POC Glucose (mg/dL) 209 H (75-99) mg/dL Calcium (8.4-10.2) mg/dL Assessment and Plan Assessment: Impression: Status repair of right hip fracture, intertrochanteric alexandra placement, close reduction, postoperative day #1 Acute hypoxic respiratory failure, most likely secondary to profound bibasilar atelectasis, possible pneumonia, and possible fat embolism. Significantly improved based on chest x-ray today. Suspect acute on chronic diastolic congestive heart failure Valvular heart disease including aortic sclerosis, mitral regurgitation, and pulmonary hypertension. Essential hypertension, with hypertensive nephrosclerosis. Chronic kidney disease stage III Type 2 diabetes with diabetic nephropathy. Right femoral fracture secondary to fall, Recommendation: Continue incentive spirometry, Continue bronchodilators, Early ambulation, Will transfer the patient out of the ICU, and he'll be followed by his admitting physician. We'll sign off and see the patient on when necessary basis. Time with Patient: Less than 30
[2019-03-15 17:07] LABS: Glucose,Whole Blood 323 mg/dL (75-99)
[2019-03-15 21:33] LABS: Glucose,Whole Blood 359 mg/dL (75-99)
[2019-03-15] MEDS: ATORVASTATIN 10 MG TAB PO SCH (21:54)
[2019-03-15] MEDS: SENNOSIDES-DOCUSATE SODIUM 1 EACH TAB PO SCH (21:54)
[2019-03-15] MEDS: INSULIN DETEMIR (LEVEMIR) 100 UNIT/ML SYR SQ SCH (21:56)
[2019-03-15] MEDS: LATANOPROST 0.005% OPHTH DROPS 2.5 ML BTL BOTH EYES SCH (22:10)
[2019-03-15] MEDS: METOPROLOL SUCCINATE (ER) 50 MG TAB.ER.24H PO SCH (22:10)
[2019-03-16] MEDS: MORPHINE SULFATE 4 MG/ML SYRINGE IV PRN (00:02)
--- NOTE | 2019-03-16 00:11 | P.PN ---
Progress Note - Text Progress Note Date: 03/16/19 - Chief Complaint fall History of presenting complaint: This is a 73-year-old patient of Dr. Whitlock. Resident of [facility]. Chronic stable medical conditions include diabetes, hypertension, hyperlipidemia, BPH. History is obtained by the patient and the son of the bedside. Patient normally uses a walker. has been having falls. for quite some time. Patient described that he just loses his balance and goes down. Denies any obvious dizziness or lightheadedness. No palpitations. Patient also been noticed to be short of breath by the son going on for some time. Patient is also had chronic swelling of the lower extremities. Otherwise patient appetite is fair bowel movements are fair. On this occasion patient recently did have a fracture of the right upper humerus. 4 days ago patient fell down and fractured his humerus yet again. Yesterday patient again had a fall at this time was noted to have a fracture of the right femur. patient initially admitted to orthopedic service. Patient is found to be significantly hypoxic in the ER and is a suspicion of fat embolism. Patient started and IV heparin. Patient is found to be significantly hypoxic on the blood gases. Patient's surgery has been postponed for right now.VQ scan was low probability. The was ruled out. Diagnosed with pneumonia.surgical right hip was done on March 15.also treated for acute CHF. Today-in the ICU today. Pain well controlled. Patient failed his swallowing. Seen by speech therapy. Cough is improved. Daughter the bedside. patient is asking for food. he was explain why he cannot have food right now. Discussed with the daughter the bedside. Review of systems: Was done for constitutional, cardiovascular, GI, pulmonary. relevant finding as above Active Medications Hydrocodone Bitart/Acetaminophen ([place] 5-325) 2 each PO Q6HR PRN PRN Reason: Pain Scale 6 to 10 Hydrocodone Bitart/Acetaminophen ([place] 5-325) 1 each PO Q6HR PRN PRN Reason: Pain Scale 1 to 5 Last Admin: 03/15/19 04:11 Dose: 1 each Documented by: Amiodarone HCl (Cordarone) 200 mg PO DAILY [facility] Last Admin: 03/15/19 08:49 Dose: 200 mg Documented by: Amlodipine Besylate (Norvasc) 5 mg PO DAILY [facility] Last Admin: 03/15/19 08:49 Dose: 5 mg Documented by: Aspirin (Aspirin) 81 mg PO DAILY [facility] Last Admin: 03/15/19 08:49 Dose: 81 mg Documented by: Atorvastatin Calcium (Lipitor) 10 mg PO [facility] Last Admin: 03/15/19 21:54 Dose: 10 mg Documented by: Furosemide (Lasix) 20 mg IV Q12HR [facility] Last Admin: 03/15/19 21:55 Dose: 20 mg Documented by: Guaifenesin (Mucinex) 1,200 mg PO Q12HR [facility] Last Admin: 03/15/19 21:53 Dose: 1,200 mg Documented by: Heparin Sodium (Porcine) (Heparin) 5,000 unit SQ Q12HR [facility] Last Admin: 03/15/19 21:55 Dose: 5,000 unit Documented by: Cefepime HCl 1 gm/ Sodium (Chloride) 50 mls @ 100 mls/hr IVPB Q12HR [facility] Last Admin: 03/15/19 22:20 Dose: 100 mls/hr Documented by: Insulin Aspart (Novolog) 5 unit SQ AC-TID [facility] Last Admin: 03/15/19 17:06 Dose: 5 unit Documented by: Insulin Aspart (Novolog) 0 unit SQ [facility]; Protocol Last Admin: 03/15/19 21:57 Dose: 5 unit Documented by: Insulin Detemir (Levemir) 34 unit SQ [facility] Last Admin: 03/15/19 21:56 Dose: 34 unit Documented by: Latanoprost (Xalatan 0.005%) 1 drops BOTH EYES [facility] Last Admin: 03/15/19 22:10 Dose: 1 drops Documented by: Losartan Potassium (Cozaar) 100 mg PO DAILY [facility] Last Admin: 03/15/19 08:48 Dose: 100 mg Documented by: Magnesium Hydroxide (Milk Of Magnesia) 2,400 mg PO DAILY PRN PRN Reason: Constipation Metoprolol Succinate (Toprol Xl) 50 mg PO BID [facility] Last Admin: 03/15/19 22:10 Dose: 50 mg Documented by: Morphine Sulfate (Morphine Sulfate (Inj)) 4 mg IV Q4HR PRN PRN Reason: Severe Pain Last Admin: 03/16/19 00:02 Dose: 4 mg Documented by: Naloxone HCl (Narcan) 0.2 mg IV Q2M PRN PRN Reason: Opioid Reversal Naloxone HCl (Narcan) 0.2 mg IV Q2M PRN PRN Reason: Opioid Reversal Ondansetron HCl (Zofran) 4 mg IVP Q24HR PRN PRN Reason: Nausea And Vomiting Pantoprazole Sodium (Protonix) 40 mg PO DAILY [facility] Last Admin: 03/15/19 08:47 Dose: 40 mg Documented by: Senna/Docusate Sodium (Senokot-S) 2 each PO HS [facility] Last Admin: 03/15/19 21:54 Dose: 2 each Documented by: Tamsulosin HCl (Flomax) 0.4 mg PO DAILY [facility] Last Admin: 03/15/19 08:47 Dose: 0.4 mg Documented by: Physical examination: VITAL SIGNS: 98.4, 60, 24, 120/47, 97% on 2 L GENERAL: Laying in bed tired awake , agitated EYES: Pupils equal. Conjunctiva normal. HEENT: External appearance of nose and ears normal, oral cavity grossly normal. NECK: JVD unable to assess; masses not palpable. HEART: [First and second heart sounds are normal; edema present. LUNGS:[ Respiratory rate increased, , decreased breath sounds. occasional crackles ABDOMEN: Soft, nontender, liver spleen not palpable, no masses palpable. PSYCH: Alert and oriented x3; mood and affect very anxious and agitated, even using formula which EXTREMITY: bruising on the right upper extremity INVESTIGATIONS, reviewed in the clinical context: white count 13.5 hemoglobin 8.7 L 142 bun 34 creatinine 1.65 Previous testing White count 16.8 hemoglobin 9.2 platelets 151 ABG-pH 7.45 pO2 43 pCO2 38 Bun 31 and creatinine 2.01 proBNP 1800 Chest x-ray film personally reviewed by me-cardiomegaly and some pulmonary congestion EKG tracing personally reviewed by me-paced rhythm with poor baseline X-ray right hip-IT fracture 2-D echo-moderate concentric left ventricular hypertrophy, EF 50-55%, moderate aortic valve sclerosis VQ scan-low probability Assessment: -right femurIT fracture secondary to fall-with intertrochanteric nail and alexandra -Acute hypoxic respiratory failure severe, , from pneumonia, secretions and possible fluid overload, slowly improving -Pneumonia suspect gram-negative organism, -Possible acute on chronic congestive heart failure exacerbation from diastolic dysfunction EF 50-55% -Hypertensive heart disease -Diabetes mellitus type 2 on oral hypoglycemic -Essential hypertension -Hyperlipidemia -BPH -Chronic kidney disease stage III likely from diabetic nephropathy and hypertensive nephrosclerosis -Right humerus fracture secondary to fall -Acute dysphagia as determined by speech therapist. Patient on a modified diet. -Full code Plan: patient remains on IV cefepime, IV Lasix,. Other medication treatment plan is to continue.requested the patient not use following with. Discussed discussed with daughter. Patient on a modified diet as per speech therapy.
[2019-03-16 00:34] LABS: Basophils # (A) 0.1 k/uL (0-0.2); Basophils % (A) 1 %; Eosinophils # (A) 0.5 k/uL (0-0.7); Eosinophils % (A) 4 %; HGB 7.6 gm/dL (13.0-17.5); Hypochromasia Slight; Lymphocytes # (A) 0.8 k/uL (1.0-4.8); Lymphocytes % (A) 7 %; MCH 29.8 pg (25.0-35.0); MCHC 33.2 g/dL (31.0-37.0); MCV 89.7 fL (80.0-100.0); Mean Platelet Volume 8.1; Monocytes # (A) 0.6 k/uL (0-1.0); Monocytes % (A) 5 %; Neutrophils # (A) 9.7 k/uL (1.3-7.7); Neutrophils % (A) 81 %; Platelet Count 156 k/uL (150-450); RBC 2.56 m/uL (4.30-5.90); RDW 14.6 % (11.5-15.5); WBC 11.9 k/uL (3.8-10.6)
[2019-03-16 07:09] LABS: Glucose,Whole Blood 160 mg/dL (75-99)
[2019-03-16] MEDS: AMIODARONE 200 MG TAB PO SCH (08:07)
[2019-03-16] MEDS: HEPARIN SODIUM,PORCINE 5,000 UNIT/ML 1 ML VIAL SQ SCH ×2 (08:07→22:37)
[2019-03-16] MEDS: TAMSULOSIN 0.4 MG CAP.ER.24H PO SCH (08:07)
[2019-03-16] MEDS: guaiFENesin 600 MG TABLET.ER PO SCH ×2 (08:07→22:37)
[2019-03-16] MEDS: FUROSEMIDE 10 MG/ML 4 ML VIAL IV SCH (08:07)
[2019-03-16] MEDS: PANTOPRAZOLE 40 MG TABLET PO SCH (08:07)
[2019-03-16] MEDS: ASPIRIN 81 MG PO SCH (08:07)
[2019-03-16] MEDS: METOPROLOL SUCCINATE (ER) 50 MG TAB.ER.24H PO SCH ×2 (08:08→22:36)
[2019-03-16] MEDS: LOSARTAN 50 MG TAB PO SCH (08:08)
[2019-03-16] MEDS: INSULIN ASPART (NovoLOG) 100 UNIT/ML VIAL SQ SCH ×7 (08:08→22:38)
[2019-03-16] MEDS: amLODIPine 5 MG TAB PO SCH (08:13)
[2019-03-16] MEDS: CEFEPIME 1 GM in SODIUM CHLORIDE 0.9% 50 ML IVPB SCH ×2 (09:30→22:35)
--- NOTE | 2019-03-16 11:03 | P.PN ---
Progress Note - Text Progress Note Date: 03/16/19 Orthopedics: History present illness: Patient is a 73-year-old male who is seen and examined at the bedside following evaluation for his right intertrochanteric hip fracture. He is status post right hip intramedullary nail fixation for his right intratrochanteric hip fracture performed yesterday, 03/14/2019. He is not currently experiencing any significant pain in his right hip. He does have increased pain with the right lower extremity with movement of the right lower extremity. He was able to be discharged from the ICU and moved to the medical surgical floor. He was able to work with physical therapy yesterday. He is planning to continue working with physical therapy today. He has had significant difficulty with mobilization. He states he has not been eating much postoperatively due to lack of appetite. He continues to be seen by multiple medical providers including cardiology and medicine. Patient does have a significant medical history which includes diabetes mellitus, hyperlipidemia, hypertension, and prostate disorder. Patient is also known to have a right proximal humerus fracture which is being treated conservatively. He is not currently complaining of any pain in his right proximal humerus. Nursing states patient has failed his swallow study. He's currently undergoing further testing. Physical Exam Intramedullary Rodding for Intertrochanteric Fracture: Status post surgical day number 2 Patient is examined lying in bed Patient is awake and alert, and oriented 3 Vital signs per stable Adequate chest excursion with deep inspiration and expiration; patient currently on O2 nasal cannula No signs or symptoms of DVT; no calf pain Lower extremity not currently cuffs in place bilaterally Dressing of the right hip is clean, dry, and intact; no erythema, purulence, or signs of infection Dressing is removed and reapplied physical examination Incision sites remained clean, dry, intact with no active drainage or signs of infection No pain with palpation over the surgical sites Full range of motion of ankles bilaterally Dorsiflexion, plantarflexion, and extensor hallucis longus positive sustained bilaterally Neurovascularly intact bilateral lower extremities Capillary refill less than 2 seconds bilateral lower extremities Significant bruising with some swelling over the right proximal humerus Pain with any active or passive range of motion of the right shoulder Pain with palpation over the fracture site of the right proximal humerus Assessment: Status post right intramedullary nail fixation for left intertrochanteric hip fracture Status post multiple falls Right hip pain Right proximal humeral fracture Status post multiple falls Acute hypoxic respiratory failure Pacemaker placement Diabetes mellitus Hyperlipidemia Hypertension Chronic kidney disease stage III Prostate disorder Failed swallow study Plan: 1. Patient to remain nonweightbearing on the right lower extremity; patient may work with physical therapy to increase mobility and ambulation 2. Keep dressing over the right hip clean, dry, and intact 3. Discontinue Saenz catheter when patient is able to increase mobility and ambulation 4. Continue pain control with oral Stout and IV Dilaudid as needed for pain control 5. Continue with anticoagulation therapy with heparin as controlled by medicine and cardiology 6. Medicine, cardiology, and pulmonology to continue following the patient for his other medical diagnosis 7. We'll continue to follow the patient closely; depending on the patient's progress, we may plan for discharge over the next couple days to a rehabilitation facility 8. Patient can follow-up with Bird Ramirez PA-C or Dr. Miky Brown at [facility] in 2-3 weeks following discharge
[2019-03-16 11:57] LABS: Glucose,Whole Blood 216 mg/dL (75-99)
--- NOTE | 2019-03-16 13:17 | P.PN ---
Subjective HISTORY OF PRESENTING ILLNESS This is a pleasant 73-year-old male past medical history significant for hypertension, dyslipidemia, diabetes mellitus, paroxysmal atrial fibrillation not on rodent exterminator anticoagulation, bleed in the brain 9 yrs ago and permanent pacemaker implantation. He is seen and examined sitting up in bed in no acute distress. He continues to be mildly hypoxic on nasal cannula. Yesterday we requested d-dimer which came to be elevated at 7.7, second troponin negative. Bilateral lower extremity venous duplex negative for DVT. Right upper extremity duplex negative for DVT. VQ scan reveals low probability for PE. Echocar diogram obtained reveals preserved LV systolic function with ejection fraction 50-55%, aortic valve is bicuspid, mild aortic regurgitation, mild aortic stenosis with a mean gradient of 16 mmHg, mild MR, mild TR and moderate pulmonary hypertension with an RVSP of 46 mmHg. Blood pressure 153/63 with a heart rate of 60 oxygen saturation 91% on a nonrebreather. 03/16/2019 He underwent successful alexandra placement to the right hip and is recovering on the med surg unti. His daughter is at the bedside. She clarified that he is not a candidate for rodent exterminator anti-coagulation due to 2 bleeds in the brain in the last 15 years. Blood pressure 136/55 heart rate 60 afebrile with oxygen saturation of 89% on 2 liters nasal cannula. Currently maintained on amiodarone 200 mg daily, amlodipine 5 mg daily, aspirin 81 mg daily, atorvastatin 10 gm daily, lasix 20 mg IV BID, losartan 100 mg daily and toprol 50 mg. laboratory data reviewed, WBC 11.9, hemoglobin 7.6, platelets 156. Repeat chest x-ray yesterday reveals improved aeration, minimal subsegmental atelectasis. PHYSICAL EXAMINATION CONSTITUTIONAL: No apparent distress. HEENT: Head is normocephalic. Pupils are equal, round. Sclerae anicteric. Mucous membranes of the mouth are moist. No JVD. No carotid bruit. CHEST EXAMINATION: Lungs are clear to auscultation. No chest wall tenderness is noted on palpation or with deep breathing. HEART EXAMINATION: Regular rate and rhythm. S1, S2 heard. Systolic ejection murmur at the base and at the apex, no gallops or rub. EXTREMITIES: 2+ peripheral pulses, no lower extremity edema and no calf tenderne ss. Significant bruising and swelling to the right arm. ASSESSMENT Fall Right hip fracture s/p alexandra placement Paroxysmal atrial fibrillation not on anti-coagulation due to brain bleed in the past Hypoxia Permanent pacemaker implantation Aortic stenosis. Hypertension PLAN Transition to oral diuretics. Ongoing medical management and treatment per primary care team and pulmonary team. We will continue to follow as needed, please call with further questions or concerns. Advised the patient and his daughter to follow up closely with Dr. Flood upon discharge. Nurse Practitioner note has been reviewed, I agree with a documented findings and plan of care. Patient was seen and examined. Objective - Vital Signs Vital signs: Vital Signs Temp 98.8 F 03/16/19 07:30 Pulse 60 03/16/19 07:30 Resp 22 03/16/19 07:30 BP 136/55 03/16/19 07:30 Pulse Ox 89 L 03/16/19 07:30 Intake & Output 03/15/19 03/16/19 03/16/19 18:59 06:59 18:59 Intake Total 730 300 Output Total 355 1000 Balance 375 -1000 300 Intake: IV 130 Cefepime 1 gm In Sodium 100 Chloride 0.9% 50 ml @ 100 mls/hr IVPB Q12HR [facility] Rx #:[id number] KVO/Carrier 30 Oral 600 300 Output: Urine 355 1000 Other: Voiding Method Indwelling Catheter Indwelling Catheter Indwelling Catheter - Labs CBC & Chem 7: 03/16/19 00:22 03/15/19 04:57 Labs: Abnormal Lab Results - Last 24 Hours (Table) 03/15/19 03/15/19 03/16/19 Range/Units 16:55 21:22 00:22 WBC 11.9 H (3.8-10.6) k/uL RBC 2.56 L (4.30-5.90) m/uL Hgb 7.6 L (13.0-17.5) gm/dL Hct 23.0 L (39.0-53.0) % Neutrophils # 9.7 H (1.3-7.7) k/uL Lymphocytes # 0.8 L (1.0-4.8) k/uL POC Glucose (mg/dL) 323 H 359 H (75-99) mg/dL 03/16/19 03/16/19 Range/Units 06:57 11:45 WBC (3.8-10.6) k/uL RBC (4.30-5.90) m/uL Hgb (13.0-17.5) gm/dL Hct (39.0-53.0) % Neutrophils # (1.3-7.7) k/uL Lymphocytes # (1.0-4.8) k/uL POC Glucose (mg/dL) 160 H 216 H (75-99) mg/dL
[2019-03-16] MEDS: HYDROcodone/APAP 5-325MG 1 EACH TAB PO PRN ×2 (13:56→22:50)
[2019-03-16 16:43] LABS: Glucose,Whole Blood 360 mg/dL (75-99)
[2019-03-16 20:01] VITALS: RESP 16
[2019-03-16 21:27] LABS: Glucose,Whole Blood 238 mg/dL (75-99)
[2019-03-16] MEDS: SENNOSIDES-DOCUSATE SODIUM 1 EACH TAB PO SCH (22:36)
[2019-03-16] MEDS: ATORVASTATIN 10 MG TAB PO SCH (22:36)
[2019-03-16] MEDS: INSULIN DETEMIR (LEVEMIR) 100 UNIT/ML SYR SQ SCH (22:37)
[2019-03-16] MEDS: LATANOPROST 0.005% OPHTH DROPS 2.5 ML BTL BOTH EYES SCH (23:01)
[2019-03-16 23:16] LABS: Glucose,Whole Blood 243 mg/dL (75-99)
--- NOTE | 2019-03-16 23:31 | P.PN ---
Progress Note - Text Progress Note Date: 03/16/19 - Chief Complaint fall History of presenting complaint: This is a 73-year-old patient of Dr. Whitlock. Resident of [facility]. Chronic stable medical conditions include diabetes, hypertension, hyperlipidemia, BPH. History is obtained by the patient and the son of the bedside. Patient normally uses a walker. has been having falls. for quite some time. Patient described that he just loses his balance and goes down. Denies any obvious dizziness or lightheadedness. No palpitations. Patient also been noticed to be short of breath by the son going on for some time. Patient is also had chronic swelling of the lower extremities. Otherwise patient appetite is fair bowel movements are fair. On this occasion patient recently did have a fracture of the right upper humerus. 4 days ago patient fell down and fractured his humerus yet again. Yesterday patient again had a fall at this time was noted to have a fracture of the right femur. patient initially admitted to orthopedic service. Patient is found to be significantly hypoxic in the ER and is a suspicion of fat embolism. Patient started and IV heparin. Patient is found to be significantly hypoxic on the blood gases. Patient's surgery has been postponed for right now.VQ scan was low probability. The was ruled out. Diagnosed with pneumonia.surgical right hip was done on March 15.also treated for acute CHF. Today-moved to medical floor. Seen by speech therapist earlier today. Diet adv anced. Daughter the bedside. Cough is better. Decreased peripheral production. Occasional. The repair and he. Review of systems: Was done for constitutional, cardiovascular, GI, pulmonary. relevant finding as above Active Medications Hydrocodone Bitart/Acetaminophen ([place] 5-325) 2 each PO Q6HR PRN PRN Reason: Pain Scale 6 to 10 Last Admin: 03/16/19 22:50 Dose: 2 each Documented by: Hydrocodone Bitart/Acetaminophen ([place] 5-325) 1 each PO Q6HR PRN PRN Reason: Pain Scale 1 to 5 Last Admin: 03/15/19 04:11 Dose: 1 each Documented by: Amiodarone HCl (Cordarone) 200 mg PO DAILY [facility] Last Admin: 03/16/19 08:07 Dose: 200 mg Documented by: Amlodipine Besylate (Norvasc) 5 mg PO DAILY [facility] Last Admin: 03/16/19 08:13 Dose: 5 mg Documented by: Aspirin (Aspirin) 81 mg PO DAILY [facility] Last Admin: 03/16/19 08:07 Dose: 81 mg Documented by: Atorvastatin Calcium (Lipitor) 10 mg PO [facility] Last Admin: 03/16/19 22:36 Dose: 10 mg Documented by: Furosemide (Lasix) 80 mg PO DAILY [facility] Guaifenesin (Mucinex) 1,200 mg PO Q12HR [facility] Last Admin: 03/16/19 22:37 Dose: 1,200 mg Documented by: Heparin Sodium (Porcine) (Heparin) 5,000 unit SQ Q12HR [facility] Last Admin: 03/16/19 22:37 Dose: 5,000 unit Documented by: Cefepime HCl 1 gm/ Sodium (Chloride) 50 mls @ 100 mls/hr IVPB Q12HR [facility] Last Admin: 03/16/19 22:35 Dose: 100 mls/hr Documented by: Insulin Aspart (Novolog) 5 unit SQ AC-TID [facility] Last Admin: 03/16/19 17:18 Dose: 5 unit Documented by: Insulin Aspart (Novolog) 0 unit SQ [facility]; Protocol Last Admin: 03/16/19 22:38 Dose: 100 unit Documented by: Insulin Detemir (Levemir) 34 unit SQ [facility] Last Admin: 03/16/19 22:37 Dose: 34 unit Documented by: Latanoprost (Xalatan 0.005%) 1 drops BOTH EYES [facility] Last Admin: 03/16/19 23:01 Dose: 1 drops Documented by: Losartan Potassium (Cozaar) 100 mg PO DAILY [facility] Last Admin: 03/16/19 08:08 Dose: 100 mg Documented by: Magnesium Hydroxide (Milk Of Magnesia) 2,400 mg PO DAILY PRN PRN Reason: Constipation Metoprolol Succinate (Toprol Xl) 50 mg PO BID [facility] Last Admin: 03/16/19 22:36 Dose: 50 mg Documented by: Naloxone HCl (Narcan) 0.2 mg IV Q2M PRN PRN Reason: Opioid Reversal Naloxone HCl (Narcan) 0.2 mg IV Q2M PRN PRN Reason: Opioid Reversal Ondansetron HCl (Zofran) 4 mg IVP Q24HR PRN PRN Reason: Nausea And Vomiting Pantoprazole Sodium (Protonix) 40 mg PO DAILY [facility] Last Admin: 03/16/19 08:07 Dose: 40 mg Documented by: Senna/Docusate Sodium (Senokot-S) 2 each PO HS [facility] Last Admin: 03/16/19 22:36 Dose: 2 each Documented by: Tamsulosin HCl (Flomax) 0.4 mg PO DAILY [facility] Last Admin: 03/16/19 08:07 Dose: 0.4 mg Documented by: Physical examination: VITAL SIGNS: 98.2, 61, 17, 130/55, 94% on 2 L GENERAL: Propped up in bed, awake EYES: Pupils equal. Conjunctiva normal. HEENT: External appearance of nose and ears normal, oral cavity grossly normal. NECK: JVD unable to assess; masses not palpable. HEART: [First and second heart sounds are normal; edema present. LUNGS:[ Respiratory rate increased, , decreased breath sounds. ABDOMEN: Soft, nontender, liver spleen not palpable, no masses palpable. PSYCH: Alert and oriented x3; mood and affect agitated, EXTREMITY: bruising on the right upper extremity INVESTIGATIONS, reviewed in the clinical context: White count 11.9 hemoglobin 7.6 platelets 156 Previous testing White count 16.8 hemoglobin 9.2 platelets 151 ABG-pH 7.45 pO2 43 pCO2 38 Bun 31 and creatinine 2.01 proBNP 1800 Chest x-ray film personally reviewed by me-cardiomegaly and some pulmonary congestion EKG tracing personally reviewed by me-paced rhythm with poor baseline X-ray right hip-IT fracture 2-D echo-moderate concentric left ventricular hypertrophy, EF 50-55%, moderate aortic valve sclerosis VQ scan-low probability Assessment: -right femurIT fracture secondary to fall-with intertrochanteric nail and alexandra -Acute hypoxic respiratory failure severe, , from pneumonia, secretions and possible fluid overload, improving -Pneumonia suspect gram-negative organism, improving -Possible acute on chronic congestive heart failure exacerbation from diastolic dysfunction EF 50-55% -Hypertensive heart disease -Diabetes mellitus type 2 on oral hypoglycemic -Essential hypertension -Hyperlipidemia -BPH -Chronic kidney disease stage III likely from diabetic nephropathy and hypertensive nephrosclerosis -Right humerus fracture secondary to fall -Acute dysphagia as determined by speech therapist. Patient on a modified diet. -Full code Plan: patient remains on IV cefepime, IV Lasix,. Diet is being advanced per speech therapist. Looking better.
[2019-03-16 23:55] LABS: Hemoglobin A1C 6.7 % (4.0-6.0)
[2019-03-17 06:51] LABS: Glucose,Whole Blood 125 mg/dL (75-99)
[2019-03-17] MEDS: INSULIN ASPART (NovoLOG) 100 UNIT/ML VIAL SQ SCH ×4 (06:58→13:49)
[2019-03-17 08:21] VITALS: BP 130/64; PULSE 60; TEMP 97.9
[2019-03-17] MEDS: TAMSULOSIN 0.4 MG CAP.ER.24H PO SCH (08:41)
[2019-03-17] MEDS: amLODIPine 5 MG TAB PO SCH (08:41)
[2019-03-17] MEDS: guaiFENesin 600 MG TABLET.ER PO SCH (08:41)
[2019-03-17] MEDS: HEPARIN SODIUM,PORCINE 5,000 UNIT/ML 1 ML VIAL SQ SCH (08:41)
[2019-03-17] MEDS: PANTOPRAZOLE 40 MG TABLET PO SCH (08:41)
[2019-03-17] MEDS: ASPIRIN 81 MG PO SCH (08:41)
[2019-03-17] MEDS: AMIODARONE 200 MG TAB PO SCH (08:41)
[2019-03-17] MEDS: METOPROLOL SUCCINATE (ER) 50 MG TAB.ER.24H PO SCH (08:41)
[2019-03-17] MEDS: LOSARTAN 50 MG TAB PO SCH (08:42)
[2019-03-17] MEDS ORDERED: FUROSEMIDE 80 MG TAB PO SCH (09:00)
[2019-03-17] MEDS: CEFEPIME 1 GM in SODIUM CHLORIDE 0.9% 50 ML IVPB SCH (09:38)
--- NOTE | 2019-03-17 11:17 | P.PN ---
Progress Note - Text Progress Note Date: 03/17/19 Postoperative day #3 Patient is seen and examined today at bedside. The patient has some pain around the surgical site as expected. Pain is being controlled with medication. He has doing limited motion with his leg and is doing little effort. They have been able to get him around and he feels he is breathing better. Physical Exam Afebrile with stable vital signs Abdomen is soft nontender. Chest has good excursion deep and space expiration The incision site is clean dry and intact. No erythema there is no purulence. His thigh and his calf are soft and nontender. He has sustained dorsal flexion plantar flexion and EHL intact. Extremities have not had neurologic change from prior to surgery. Calves and thighs were soft nontender without evidence of DVT. Assessment/Plan Postoperative day #3 status post intramedullary hip screw internal fixation for his intertrochanteric and subtrochanteric femur fracture Patient is progressing somewhat slowly as expected from the surgery in terms of his mobility and ambulation. We will continue to increase the patient's mobilization with therapy. I tried to encourage him to do exercises while in bed on his own but he is very limited in his amount of effort that is willing to do. I will continue to try to encourage him to work harder to mobilize his leg. He is improving in terms of overall overall hoahaoism status and medical status and will continue his treatment as per medicine appropriately. We will continue pain control with oral or IV medications. We'll continue to follow patient closely. He will likely need placement posthospitalization
[2019-03-17 11:48] LABS: Glucose,Whole Blood 193 mg/dL (75-99)
--- NOTE | 2019-03-17 13:13 | P.DS ---
Providers Date of admission: 03/11/19 22:26 Expected date of discharge: 03/17/19 Attending physician: [place] Consults: 03/11/19 21:27 Consult Physician Routine Consulting Provider: [place] Consult Reason/Comments: medical consultation Do you want consulting provider notified?: Yes 03/11/19 23:01 Consult Physician Routine Consulting Provider: K[place]le [place] Consult Reason/Comments: hypoxia Do you want consulting provider notified?: Already Contacted 03/11/19 23:22 Consult Physician Routine Consulting Provider: Roderick Catherine Consult Reason/Comments: heart failure Do you want consulting provider notified?: Yes 03/16/19 12:19 Consult Physician Routine Consulting Provider: Kalia Brown Consult Reason/Comments: Rt Hip Fracture Do you want consulting provider notified?: Already Contacted Primary care physician: [facility] Course: - Chief Complaint fall History of presenting complaint: This is a 73-year-old patient of Dr. Whitlock. Resident of [facility]. Chronic stable medical conditions include diabetes, hypertension, hyperlipidemia, BPH. History is obtained by the patient and the son at the bedside. Patient normally uses a walker. has been having falls, for quite some time. Patient described that he just loses his balance and goes down. Denies any obvious dizziness or lightheadedness. No palpitations. Patient also been noticed to be short of breath by the son going on for some time. Patient is also had chronic swelling of the lower extremities. Otherwise patient appetite is fair bowel movements are fair. On this occasion patient recently did have a fracture of the right upper humerus. 4 days ago patient fell down and fractured his humerus yet again. Yesterday patient again had a fall at this time was noted to have a fracture of the right femur. patient initially admitted to orthopedic service. Patient is found to be significantly hypoxic in the ER and is a suspicion of fat embolism. Not felt to be the case. Patient started and IV heparin. Patient is found to be significantly hypoxic VQ scan was low probability. PE ruled out. Was bringing up thick sputum. Diagnosed with pneumonia. right hip surgery with IT screw and alexandra placement was done on March 15. also treated for acute CHF. Patient responded well to antibiotics that included IV cefepime and IV Lasix. Today-symptoms much improved. Breathing much better. Slight cough. Appetite has been improving. Stable for dizzy to ECF. Discussion and discharge planning more than 35 minutes Consultation: Dr. Kalia Brown from orthopedics Dr. Stephenie birch from pulmonary Dr. GRISELDA Fuchs from cardiology Physical examination: VITAL SIGNS: 97.9, 60, 16, 130/64, 99% room air GENERAL: Propped up in bed, awake, comfortable EYES: Pupils equal. Conjunctiva normal. HEENT: External appearance of nose and ears normal, oral cavity grossly normal. NECK: JVD unable to assess; masses not palpable. HEART: First and second heart sounds are normal; edema decreased LUNGS:[ Respiratory rate normal, , decreased breath sounds. ABDOMEN: Soft, nontender, liver spleen not palpable, no masses palpable. PSYCH: Alert and oriented x3; mood and affect agitated, EXTREMITY: bruising on the right upper extremity INVESTIGATIONS, reviewed in the clinical context: White count 11.9 hemoglobin 7.6 platelets 156 Creatinine 1.65 Previous testing White count 16.8 hemoglobin 9.2 platelets 151 ABG-pH 7.45 pO2 43 pCO2 38 Bun 31 and creatinine 2.01 proBNP 1800 Chest x-ray film personally reviewed by me-cardiomegaly and some pulmonary congestion EKG tracing personally reviewed by me-paced rhythm with poor baseline X-ray right hip-IT fracture 2-D echo-moderate concentric left ventricular hypertrophy, EF 50-55%, moderate aortic valve sclerosis VQ scan-low probability Assessment: -right femur IT fracture secondary to fall-with intertrochanteric nail and alexandra -Acute hypoxic respiratory failure severe, , from pneumonia, and CHF, improved -Pneumonia suspect gram-negative organism, -Acute kidney injury, ATN from multifactorial - acute on chronic congestive heart failure exacerbation from diastolic dysfunction EF 50-55% -Hypertensive heart disease -Diabetes mellitus type 2 on oral hypoglycemic -Essential hypertension -Hyperlipidemia -BPH -Chronic kidney disease stage III likely from diabetic nephropathy and hypert ensive nephrosclerosis -Right humerus fracture secondary to fall -Acute dysphagia as determined by speech therapist. Improved -Full code Disposition: ECF/[facility] Labs: CBC BMP 3 days Patient Condition at Discharge: Stable Plan - Discharge Summary Discharge Rx Participant: Yes New Discharge Prescriptions: New Cefuroxime Axetil [Ceftin] 500 mg PO BID 3 Days #6 tab Furosemide [Lasix] 80 mg PO DAILY tab guaiFENesin [Mucinex] 1,200 mg PO Q12HR tablet.er Sennosides-Docusate Sodium [Senokot-S] 2 each PO HS tab Metoprolol Succinate (ER) [Toprol XL] 50 mg PO BID tab.er.24h Continue metFORMIN HCL 1,000 mg PO BID amLODIPine [Norvasc] 5 mg PO DAILY Atorvastatin [Lipitor] 10 mg PO HS Amiodarone [Cordarone] 200 mg PO DAILY Insulin Glargine,Hum.rec.anlog [Basaglar Kwikpen U-100] 44 unit SQ HS Losartan Potassium 100 mg PO DAILY Tamsulosin [Flomax] 0.4 mg PO DAILY Menthol [Biofreeze] 1 applic TOPICAL HS PRN PRN Reason: Pain INSULIN ASPART (NovoLOG) [NovoLOG (formulary)] See Protocol SQ AC-TID Latanoprost [Xalatan 0.005%] 1 drop BOTH EYES HS Aspirin [Adult Low Dose Aspirin EC] 81 mg PO DAILY INSULIN ASPART (NovoLOG) [NovoLOG (formulary)] 5 unit SQ AC-TID HYDROcodone/APAP 5-325MG [[place] 5-325] 1 tab PO Q6H PRN #12 tab PRN Reason: Pain Discontinued Metoprolol Succinate [Toprol XL] 100 mg PO BID Furosemide [Lasix] 40 mg PO PC-SUPPER Furosemide [Lasix] 80 mg PO DAILY Discharge Medication List Amiodarone [Cordarone] 200 mg PO DAILY 01/03/19 [History] Atorvastatin [Lipitor] 10 mg PO HS 01/03/19 [History] Insulin Glargine,Hum.rec.anlog [Basaglar Kwikpen U-100] 44 unit SQ HS 01/03/19 [History] amLODIPine [Norvasc] 5 mg PO DAILY 01/03/19 [History] metFORMIN HCL 1,000 mg PO BID 01/03/19 [History] Losartan Potassium 100 mg PO DAILY 01/19/19 [History] Menthol [Biofreeze] 1 applic TOPICAL HS PRN 02/01/19 [History] Tamsulosin [Flomax] 0.4 mg PO DAILY 02/01/19 [History] Aspirin [Adult Low Dose Aspirin EC] 81 mg PO DAILY 03/11/19 [History] INSULIN ASPART (NovoLOG) [NovoLOG (formulary)] 5 unit SQ AC-TID 03/11/19 [History] INSULIN ASPART (NovoLOG) [NovoLOG (formulary)] See Protocol SQ AC-TID 03/11/19 [History] Latanoprost [Xalatan 0.005%] 1 drop BOTH EYES HS 03/11/19 [History] Cefuroxime Axetil [Ceftin] 500 mg PO BID 3 Days #6 tab 03/17/19 [Rx] Furosemide [Lasix] 80 mg PO DAILY tab 03/17/19 [Rx] HYDROcodone/APAP 5-325MG [[place] 5-325] 1 tab PO Q6H PRN #12 tab 03/17/19 [Rx] Metoprolol Succinate (ER) [Toprol XL] 50 mg PO BID tab.er.24h 03/17/19 [Rx] Sennosides-Docusate Sodium [Senokot-S] 2 each PO HS tab 03/17/19 [Rx] guaiFENesin [Mucinex] 1,200 mg PO Q12HR tablet.er 03/17/19 [Rx] Follow up Appointment(s)/Referral(s): George Whitlock DO [Primary Care Provider] - 1-2 days Kalia Brown DO [Doctor of Osteopathic Medicine] - 03/29/19 2:45 pm
[2019-03-17] MEDS: HYDROcodone/APAP 5-325MG 1 EACH TAB PO PRN (13:46)
== END 2019-03-17 14:58 | DRG 480 ==
LOC: EC 19:08 → 4SSUR 22:26 → 2SICU 03-13 14:02 → 4SSUR 03-16 00:13
PROVIDERS: ADMIT Hospitalist; ATTEND Hospitalist
PROC: 0QS606Z Reposition Right Upper Femur with Intramedullary Internal Fixation Device, Open Approach (ICD-10-PCS; principal; 2019-03-14 18:00)
DX: S72.141A Displaced intertrochanteric fracture of right femur, initial encounter for closed fracture (principal); I50.33 Acute on chronic diastolic (congestive) heart failure; J18.9 Pneumonia, unspecified organism; J96.01 Acute respiratory failure with hypoxia; N17.0 Acute kidney failure with tubular necrosis; I13.0 Hypertensive heart and chronic kidney disease with heart failure and stage 1 through stage 4 chronic kidney disease, or unspecified chronic kidney disease; J98.11 Atelectasis; W01.0XXA Fall on same level from slipping, tripping and stumbling without subsequent striking against object, initial encounter; Y92.009 Unspecified place in unspecified non-institutional (private) residence as the place of occurrence of the external cause; R29.6 Repeated falls; Z91.81 History of falling; E11.22 Type 2 diabetes mellitus with diabetic chronic kidney disease; E78.5 Hyperlipidemia, unspecified; I27.20 Pulmonary hypertension, unspecified; I35.0 Nonrheumatic aortic (valve) stenosis; I48.0 Paroxysmal atrial fibrillation; N18.3 Chronic kidney disease, stage 3 (moderate); N40.0 Benign prostatic hyperplasia without lower urinary tract symptoms; R13.10 Dysphagia, unspecified; Z79.4 Long term (current) use of insulin; Z79.82 Long term (current) use of aspirin; Z79.899 Other long term (current) drug therapy; Z95.0 Presence of cardiac pacemaker; S42.201D Unspecified fracture of upper end of right humerus, subsequent encounter for fracture with routine healing; W19.XXXD Unspecified fall, subsequent encounter
CPT/HCPCS: 36415; 36600; 70450; 71045; 71250; 73502; 78582; 80048; 81003; 82803; 82805; 83036; 83735; 83880; 84100; 84145; 84484; 85025; 85027; 85379; 85610; 85730; 88305; 88311; 93005; 93306; 93970; 94760; 96365; 96375; 96376; 99285

== ENCOUNTER 2019-05-01 | Inpatient (IN) | payer MEDICARE, BC | END 2019-05-07 13:00 | DRG 682 | PROVIDERS: ADMIT Hospitalist | CPT/HCPCS: 36415; 71045; 71046; 73501; 76770; 80048; 80053; 81001; 83036; 83605; 83735; 85025; 85610; 85730; 87040; 87086; 93005; 94640; 94760; 96361; 96374; 96375; 99285 ==

== ENCOUNTER 2019-06-15 01:01 | Emergency (ER) | payer MEDICARE, BC ==
[2019-06-15 01:08] VITALS: RESP 18; TEMP 98.1
--- NOTE | 2019-06-15 01:26 | ED ---
Upper Extremity HPI - General Chief Complaint: Extremity Injury, Upper Stated Complaint: shoulder pain Time Seen by Provider: 06/15/19 01:05 Source: patient, EMS Mode of arrival: EMS Limitations: physical limitation (There appears to be some underlying dementia or delirium.) - History of Present Illness Initial Comments: This patient is a 73-year-old man who presents to be evaluated for right shoulder pain. The patient states that he had noted this tonight. He is not able to characterize it well. He states that it just hurts. The patient does n ot recall taking any medication for relief. The pain is mainly when he attempts to move his right shoulder. He states that he can move the arm at the elbow without pain. He is not aware of any injury to the right arm. The patient however when I see him states there is currently no pain. When I see him he states there is pain from the tailbone from sitting on his butt. Patient is concerned that there may be a bedsore. He has had this in the past. Patient has not had fever or chills. No chest pain, dyspnea, diaphoresis, nausea or vomiting. MD Complaint: Injury to:: right, shoulder -: hour(s) Other Extremity Injury: Shoulder: Right Handedness: right Place: home Improves With: none Worsens With: movement of extremity Associated Symptoms: denies other symptoms - Related Data Home Medications Medication Instructions Recorded Confirmed Amiodarone [Cordarone] 200 mg PO DAILY 01/03/19 05/01/19 Atorvastatin [Lipitor] 10 mg PO HS 01/03/19 05/01/19 amLODIPine [Norvasc] 5 mg PO DAILY 01/03/19 05/01/19 Tamsulosin [Flomax] 0.4 mg PO HS 02/01/19 05/01/19 INSULIN ASPART (NovoLOG) [NovoLOG 5 unit SQ AC-TID 03/11/19 05/01/19 (formulary)] Latanoprost [Xalatan 0.005%] 1 drop BOTH EYES HS 03/11/19 05/01/19 Insulin Glargine [Lantus] 44 unit SQ HS 05/01/19 05/01/19 Metoprolol Tartrate [Lopressor] 50 mg PO BID 05/01/19 05/01/19 Previous Rx's Medication Instructions Recorded Acetaminophen Tab [Tylenol] 500 mg PO Q6HR PRN tab 05/07/19 Amoxic-Pot Clav 500-125 mg 1 each PO Q12HR #6 tab 05/07/19 [Augmentin 500-125 mg] Furosemide [Lasix] 40 mg PO DAILY #1 tablet 05/07/19 Ipratropium-Albuterol Nebulize 3 ml INHALATION RT-QID PRN ml 05/07/19 [Duoneb 0.5 mg-3 mg/3 ml Soln] Loratadine [Claritin] 5 mg PO BID tab 05/07/19 Menthol-Zinc Oxide Oint 1 applic TOPICAL BID PRN applic 05/07/19 [Calmoseptine Oint] Sodium Bicarbonate Tab 1,300 mg PO BID tab 05/07/19 guaiFENesin [Mucinex] 1,200 mg PO Q12HR tablet.er 05/07/19 Magnesium Oxide [Mag-Ox] 400 mg PO DAILY #15 tablet 06/15/19 Allergies Allergy/AdvReac Type Severity Reaction Status Date / Time No Known Allergies Allergy Verified 05/01/19 15:06 Review of Systems ROS Statement: Those systems with pertinent positive or pertinent negative responses have been documented in the HPI. ROS Other: All systems not noted in ROS Statement are negative. Limitations: ROS unobtainable due to patients medical condition (Delirium versus dementia) Constitutional: Denies: fever Respiratory: Denies: cough, dyspnea Cardiovascular: Denies: chest pain Gastrointestinal: Denies: abdominal pain, vomiting Musculoskeletal: Reports: as per HPI, arthralgia. Denies: back pain Neurological: Denies: headache Past Medical History Past Medical History: Diabetes Mellitus, Hyperlipidemia, Hypertension, Osteoarthritis (OA), Prostate Disorder Additional Past Medical History / Comment(s): Enlarged prostate irregular heartrate ventricular tachycardia shoulder fracture x 4 hip fracture does not ambulate History of Any Multi-Drug Resistant Organisms: None Reported Past Surgical History: Orthopedic Surgery, Pacemaker Additional Past Surgical History / Comment(s): nasal surgery, hip surgery, urinary retention, several basal cell carcinoma removals Type of Cardiac Device: Permanent Pacemaker Device Placement Date:: 2017 Past Psychological History: No Psychological Hx Reported Smoking Status: Never smoker Past Alcohol Use History: None Reported Past Drug Use History: None Reported - Past Family History Family Family Medical History: No Reported History General Exam Limitations: physical limitation General appearance: alert Head exam: Present: atraumatic, normocephalic Eye exam: Present: normal appearance. Absent: scleral icterus, conjunctival injection ENT exam: Present: mucous membranes dry Neck exam: Present: normal inspection Respiratory exam: Present: normal lung sounds bilaterally. Absent: respiratory distress, wheezes, rales, rhonchi, stridor Cardiovascular Exam: Present: regular rate, normal rhythm, systolic murmur (There is a grade 1/6 systolic ejection murmur). Absent: diastolic murmur, rubs, gallop GI/Abdominal exam: Present: soft. Absent: distended, tenderness, guarding, rebound, rigid, mass Extremities exam: Present: normal inspection, normal capillary refill. Absent: full ROM (The patient is not able to extend or abduct the right shoulder. Resists active and passive range of motion at the right shoulder. There is no warmth, erythema, or swelling, or any exam findings suggestive of infection.), tenderness, pedal edema, calf tenderness Back exam: Present: normal inspection. Absent: CVA tenderness (R), CVA tenderness (L) Neurological exam: Present: alert. Absent: motor sensory deficit Skin exam: Present: warm, dry, intact, normal color. Absent: rash Course Vital Signs 06/15/19 01:02 Temperature 98.1 F Pulse Rate 62 Respiratory 18 Rate Blood Pressure 128/57 O2 Sat by Pulse 97 Oximetry Medical Decision Making - Lab Data Result diagrams: 06/15/19 01:50 06/15/19 01:50 Lab Results 06/15/19 06/15/19 06/15/19 Range/Units 01:50 01:50 01:50 WBC 9.9 (3.8-10.6) k/uL RBC 4.18 L (4.30-5.90) m/uL Hgb 11.3 L (13.0-17.5) gm/dL Hct 35.0 L (39.0-53.0) % MCV 83.6 (80.0-100.0) fL MCH 27.1 (25.0-35.0) pg MCHC 32.4 (31.0-37.0) g/dL RDW 14.8 (11.5-15.5) % Plt Count 207 (150-450) k/uL Neutrophils % 66 % Lymphocytes % 20 % Monocytes % 7 % Eosinophils % 5 % Basophils % 1 % Neutrophils # 6.5 (1.3-7.7) k/uL Lymphocytes # 2.0 (1.0-4.8) k/uL Monocytes # 0.7 (0-1.0) k/uL Eosinophils # 0.5 (0-0.7) k/uL Basophils # 0.1 (0-0.2) k/uL ESR 54 H (0-15) mm/hr Sodium 138 (137-145) mmol/L Potassium 3.7 (3.5-5.1) mmol/L Chloride 103 (98-107) mmol/L Carbon Dioxide 26 (22-30) mmol/L Anion Gap 9 mmol/L BUN 36 H (9-20) mg/dL Creatinine 2.36 H (0.66-1.25) mg/dL Est GFR (CKD-EPI)AfAm 30 (>60 ml/min/1.73 sqM) Est GFR (CKD-EPI)NonAf 26 (>60 ml/min/1.73 sqM) Glucose 108 H (74-99) mg/dL Calcium 9.0 (8.4-10.2) mg/dL Magnesium 1.5 L (1.6-2.3) mg/dL Total Bilirubin 0.3 (0.2-1.3) mg/dL AST 19 (17-59) U/L ALT 14 (4-49) U/L Alkaline Phosphatase 92 (38-126) U/L Troponin I 0.022 (0.000-0.034) ng/mL Total Protein 7.0 (6.3-8.2) g/dL Albumin 3.6 (3.5-5.0) g/dL - EKG Data -: EKG Interpreted by [facility] EKG shows normal: intervals (QTC is 532 ms, prolonged. NV interval 300 ms, consistent with first-degree AV block.) Rate: normal (Rate 60 bpm) When compared to previous EKG there are: no significant change (EKG is similar to 05/01/2019) Interpretation: LVH, other (Possible old anteroseptal infarct. Possible old inferior infarct. Rhythm appears to be paced) Disposition Clinical Impression: Shoulder pain, right, Hypomagnesemia Disposition: HOME SELF-CARE Condition: Fair Instructions (If sedation given, give patient instructions): Shoulder Pain (ED), Hypomagnesemia (ED) Prescriptions: Magnesium Oxide [Mag-Ox] 400 mg PO DAILY #15 tablet Is patient prescribed a controlled substance at d/c from ED?: No Referrals: George Whitlock DO [Primary Care Provider] - 1-2 days
[2019-06-15] MEDS ORDERED: ACETAMINOPHEN TAB 325 MG TAB PO STA (01:27)
[2019-06-15 02:01] LABS: Basophils # (A) 0.1 k/uL (0-0.2); Basophils % (A) 1 %; Eosinophils # (A) 0.5 k/uL (0-0.7); Eosinophils % (A) 5 %; HGB 11.3 gm/dL (13.0-17.5); Lymphocytes % (A) 20 %; MCH 27.1 pg (25.0-35.0); MCHC 32.4 g/dL (31.0-37.0); MCV 83.6 fL (80.0-100.0); Mean Platelet Volume 8.9; Monocytes # (A) 0.7 k/uL (0-1.0); Monocytes % (A) 7 %; Neutrophils # (A) 6.5 k/uL (1.3-7.7); Neutrophils % (A) 66 %; Platelet Count 207 k/uL (150-450); RBC 4.18 m/uL (4.30-5.90); RDW 14.8 % (11.5-15.5); WBC 9.9 k/uL (3.8-10.6)
--- NOTE | 2019-06-15 02:02 | XR ---
EXAMINATION TYPE: XR shoulder complete RT DATE OF EXAM: 06/15/2019 COMPARISON: May 02, 2019 HISTORY: Humerus fracture TECHNIQUE: 3 views FINDINGS: There is callus formation related to healing right humeral neck fracture. Fracture line is still visible. There is no significant change in fragment relationships compared to last exam. Scapul a is intact. There is no dislocation. IMPRESSION: Healing fracture of the right humerus. Fracture line still visible. No change in position .
[2019-06-15 02:14] LABS: Albumin 3.6 g/dL (3.5-5.0); Magnesium 1.5 mg/dL (1.6-2.3); Potassium 3.7 mmol/L (3.5-5.1); Total Bilirubin 0.3 mg/dL (0.2-1.3)
[2019-06-15] MEDS ORDERED: MAGNESIUM SULFATE-D5W PMX 1 GM in DEXTROSE/WATER 1 100ML.BAG IVPB ONE (02:28)
[2019-06-15 02:56] LABS: Erythrocyte Sedimentation Rate 54 mm/hr (0-15)
[2019-06-15 03:46] VITALS: BP 115/54; PULSE 60
== END 2019-06-15 03:59 | disposition home or self-care (01) ==
LOC: EC 01:01
DX: M25.511 Pain in right shoulder (principal); E83.42 Hypomagnesemia; E11.9 Type 2 diabetes mellitus without complications; E78.5 Hyperlipidemia, unspecified; I10 Essential (primary) hypertension; M19.90 Unspecified osteoarthritis, unspecified site; I47.2 Ventricular tachycardia; N40.0 Benign prostatic hyperplasia without lower urinary tract symptoms; Z79.899 Other long term (current) drug therapy; Z79.4 Long term (current) use of insulin; Z87.81 Personal history of (healed) traumatic fracture; Z95.0 Presence of cardiac pacemaker; Z96.0 Presence of urogenital implants; Z85.828 Personal history of other malignant neoplasm of skin; Z98.890 Other specified postprocedural states
CPT/HCPCS: 36415; 93005; 80053; 85652; 83735; 84484; 85025; 73030; 99284; 96365; J3475

== ENCOUNTER 2019-06-21 21:02 | Emergency (ER) | payer MEDICARE, BC ==
[2019-06-21 21:15] VITALS: RESP 16
[2019-06-21] MEDS ORDERED: SODIUM CHLORIDE 0.9% 1,000 ML IV STA (21:41)
--- NOTE | 2019-06-21 21:51 | ED ---
General Adult HPI - General Chief complaint: Urogenital Stated complaint: catheter issue Time Seen by Provider: 06/21/19 21:08 Source: patient, EMS, RN notes reviewed, old records reviewed Mode of arrival: EMS Limitations: physical limitation - History of Present Illness Initial comments: Patient is a 74-year-old male who presented to the emergency department today with chief complaint of catheter pain and penile pain. He reports he has pain around the urethral meatus. Patient states that he has no current abdominal pain. Also complains that every morning he vomits up bile. He is do not for the past week. Patient states that he was in the emergency department 2 days, associated urinary tract infection. He reports these had the same Solo c atheter in for over a month. Patient states that he does have visiting home care nurses. - Related Data Home Medications Medication Instructions Recorded Confirmed Amiodarone [Cordarone] 200 mg PO DAILY 01/03/19 05/01/19 Atorvastatin [Lipitor] 10 mg PO HS 01/03/19 05/01/19 amLODIPine [Norvasc] 5 mg PO DAILY 01/03/19 05/01/19 Tamsulosin [Flomax] 0.4 mg PO HS 02/01/19 05/01/19 INSULIN ASPART (NovoLOG) [NovoLOG 5 unit SQ AC-TID 03/11/19 05/01/19 (formulary)] Latanoprost [Xalatan 0.005%] 1 drop BOTH EYES HS 03/11/19 05/01/19 Insulin Glargine [Lantus] 44 unit SQ HS 05/01/19 05/01/19 Metoprolol Tartrate [Lopressor] 50 mg PO BID 05/01/19 05/01/19 Previous Rx's Medication Instructions Recorded Acetaminophen Tab [Tylenol] 500 mg PO Q6HR PRN tab 05/07/19 Amoxic-Pot Clav 500-125 mg 1 each PO Q12HR #6 tab 05/07/19 [Augmentin 500-125 mg] Furosemide [Lasix] 40 mg PO DAILY #1 tablet 05/07/19 Ipratropium-Albuterol Nebulize 3 ml INHALATION RT-QID PRN ml 05/07/19 [Duoneb 0.5 mg-3 mg/3 ml Soln] Loratadine [Claritin] 5 mg PO BID tab 05/07/19 Menthol-Zinc Oxide Oint 1 applic TOPICAL BID PRN applic 05/07/19 [Calmoseptine Oint] Sodium Bicarbonate Tab 1,300 mg PO BID tab 05/07/19 guaiFENesin [Mucinex] 1,200 mg PO Q12HR tablet.er 05/07/19 Magnesium Oxide [Mag-Ox] 400 mg PO DAILY #15 tablet 06/15/19 Ciprofloxacin HCl [Cipro] 500 mg PO Q12HR 7 Days #14 tab 06/21/19 Allergies Allergy/AdvReac Type Severity Reaction Status Date / Time No Known Allergies Allergy Verified 05/01/19 15:06 Review of Systems ROS Statement: Those systems with pertinent positive or pertinent negative responses have been documented in the HPI. ROS Other: All systems not noted in ROS Statement are negative. Past Medical History Past Medical History: Diabetes Mellitus, Hyperlipidemia, Hypertension, Osteoarthritis (OA), Prostate Disorder Additional Past Medical History / Comment(s): Enlarged prostate irregular heartrate ventricular tachycardia shoulder fracture x 4 hip fracture does not ambulate History of Any Multi-Drug Resistant Organisms: None Reported Past Surgical History: Orthopedic Surgery, Pacemaker Additional Past Surgical History / Comment(s): nasal surgery, hip surgery, urinary retention, several basal cell carcinoma removals Type of Cardiac Device: Permanent Pacemaker Device Placement Date:: 2017 Past Psychological History: No Psychological Hx Reported Smoking Status: Never smoker Past Alcohol Use History: None Reported Past Drug Use History: None Reported - Past Family History Family Family Medical History: No Reported History General Exam - General Exam Comments Initial Comments: 74-year-old male. No distress. Limitations: physical limitation General appearance: alert, in no apparent distress Head exam: Present: atraumatic Eye exam: Present: normal appearance, PERRL, EOMI. Absent: scleral icterus, conjunctival injection, periorbital swelling ENT exam: Present: normal exam, mucous membranes moist Neck exam: Present: normal inspection. Absent: tenderness, meningismus, lymphadenopathy Respiratory exam: Present: normal lung sounds bilaterally. Absent: respiratory distress, wheezes, rales, rhonchi, stridor Cardiovascular Exam: Present: regular rate, normal rhythm, normal heart sounds. Absent: systolic murmur, diastolic murmur, rubs, gallop, clicks GI/Abdominal exam: Present: soft, normal bowel sounds. Absent: distended, tenderness, guarding, rebound, rigid exam: Present: urethral discharge (discharge over uretheral meatus over indwelling catheter. Evidence of purulent drainage on catheter and in solo. ). Absent: normal inspection Speculum exam: Present: normal speculum exam By manual exam: Present: normal by manual exam Extremities exam: Present: normal inspection, full ROM, normal capillary refill. Absent: tenderness, pedal edema, joint swelling, calf tenderness Back exam: Present: normal inspection Neurological exam: Present: alert, oriented X3, CN II-XII intact Psychiatric exam: Present: normal affect, normal mood Skin exam: Present: warm, dry, intact, normal color. Absent: rash Course Vital Signs 06/21/19 06/21/19 06/21/19 21:05 23:17 23:53 Temperature 98.2 F 97.7 F Pulse Rate 63 62 61 Respiratory 16 16 16 Rate Blood Pressure 135/69 141/54 133/53 O2 Sat by Pulse 95 97 95 Oximetry EKG Findings - EKG Comments: EKG Findings:: EKG performed at 2154 shows atrial paced rhythm. Left axis deviation. Left ventricle hypertrophy. Inferior infarct return. Anteroseptal infarct. Ventricular rate of 66 bpm. Interval is 1-92 ms. QRS duration is 114 ms. QT QTc is 466/488 ms. Medical Decision Making - Medical Decision Making 74-year-old male presents today for chief complaint of dysuria and penile irritation. Patient has an indwelling Solo catheter is been present for months. Patient states that he is also had some nausea and vomiting in the mornings when he wakes up. He has no nausea or vomiting or abdominal pain at this time. Patient's indwelling for catheter appeared to have some discharge and drainage a urethral meatus. A Solo catheter was changed and replaced with new tubing. Patient does have evidence of urinary tract infection. He does have elevated white blood cell count of 16,000. Urine culture we completed today. His last urine culture grew Kalee albicans at this time for that grew Pseudomonas. That was susceptible that time the ciprofloxacin. Patient was started on this antibiotic given 2 g Rocephin and emergency department. I discussed following up with primary care doctor. Questions answered. - Lab Data Result diagrams: 06/21/19 22:12 06/21/19 22:12 Lab Results 04/21/20 04/21/20 04/21/20 Range/Units 22:12 22:12 22:12 WBC 16.6 H (3.8-10.6) k/uL RBC 3.85 L (4.30-5.90) m/uL Hgb 10.5 L (13.0-17.5) gm/dL Hct 32.4 L (39.0-53.0) % MCV 84.1 (80.0-100.0) fL MCH 27.2 (25.0-35.0) pg MCHC 32.3 (31.0-37.0) g/dL RDW 14.9 (11.5-15.5) % Plt Count 206 (150-450) k/uL Neutrophils % 83 % Lymphocytes % 10 % Monocytes % 4 % Eosinophils % 2 % Basophils % 0 % Neutrophils # 13.8 H (1.3-7.7) k/uL Lymphocytes # 1.6 (1.0-4.8) k/uL Monocytes # 0.7 (0-1.0) k/uL Eosinophils # 0.3 (0-0.7) k/uL Basophils # 0.0 (0-0.2) k/uL PT 11.8 (9.0-12.0) sec INR 1.2 H (<1.2) APTT 25.5 (22.0-30.0) sec Sodium 134 L (137-145) mmol/L Potassium 4.5 (3.5-5.1) mmol/L Chloride 100 (98-107) mmol/L Carbon Dioxide 28 (22-30) mmol/L Anion Gap 6 mmol/L BUN 26 H (9-20) mg/dL Creatinine 1.98 H (0.66-1.25) mg/dL Est GFR (CKD-EPI)AfAm 37 (>60 ml/min/1.73 sqM) Est GFR (CKD-EPI)NonAf 32 (>60 ml/min/1.73 sqM) Glucose 140 H (74-99) mg/dL Plasma Lactic Acid Ilan (0.7-2.0) mmol/L Calcium 8.8 (8.4-10.2) mg/dL Total Bilirubin 0.5 (0.2-1.3) mg/dL AST 16 L (17-59) U/L ALT 11 (4-49) U/L Alkaline Phosphatase 86 (38-126) U/L Total Protein 6.9 (6.3-8.2) g/dL Albumin 3.5 (3.5-5.0) g/dL Amylase 43 (30-110) U/L Lipase 62 (23-300) U/L Urine Color Urine Appearance (Clear) Urine pH (5.0-8.0) Ur Specific [place] (1.001-1.035) Urine Protein (Negative) Urine Glucose (UA) (Negative) Urine Ketones (Negative) Urine Blood (Negative) Urine Nitrite (Negative) Urine Bilirubin (Negative) Urine Urobilinogen (<2.0) mg/dL Ur Leukocyte Esterase (Negative) Urine RBC (0-5) /hpf Urine WBC (0-5) /hpf Urine WBC Clumps (None) /hpf Urine Bacteria (None) /hpf Cellular Casts (0) /lpf Urine Mucus (None) /hpf 06/21/19 06/21/19 Range/Units 22:12 22:30 WBC (3.8-10.6) k/uL RBC (4.30-5.90) m/uL Hgb (13.0-17.5) gm/dL Hct (39.0-53.0) % MCV (80.0-100.0) fL MCH (25.0-35.0) pg MCHC (31.0-37.0) g/dL RDW (11.5-15.5) % Plt Count (150-450) k/uL Neutrophils % % Lymphocytes % % Monocytes % % Eosinophils % % Basophils % % Neutrophils # (1.3-7.7) k/uL Lymphocytes # (1.0-4.8) k/uL Monocytes # (0-1.0) k/uL Eosinophils # (0-0.7) k/uL Basophils # (0-0.2) k/uL PT (9.0-12.0) sec INR (<1.2) APTT (22.0-30.0) sec Sodium (137-145) mmol/L Potassium (3.5-5.1) mmol/L Chloride (98-107) mmol/L Carbon Dioxide (22-30) mmol/L Anion Gap mmol/L BUN (9-20) mg/dL Creatinine (0.66-1.25) mg/dL Est GFR (CKD-EPI)AfAm (>60 ml/min/1.73 sqM) Est GFR (CKD-EPI)NonAf (>60 ml/min/1.73 sqM) Glucose (74-99) mg/dL Plasma Lactic Acid Ilan 1.3 (0.7-2.0) mmol/L Calcium (8.4-10.2) mg/dL Total Bilirubin (0.2-1.3) mg/dL AST (17-59) U/L ALT (4-49) U/L Alkaline Phosphatase (38-126) U/L Total Protein (6.3-8.2) g/dL Albumin (3.5-5.0) g/dL Amylase (30-110) U/L Lipase (23-300) U/L Urine Color Yellow Urine Appearance Cloudy (Clear) Urine pH 5.5 (5.0-8.0) Ur Specific [place] 1.014 (1.001-1.035) Urine Protein 1+ H (Negative) Urine Glucose (UA) Negative (Negative) Urine Ketones Negative (Negative) Urine Blood Small H (Negative) Urine Nitrite Negative (Negative) Urine Bilirubin Negative (Negative) Urine Urobilinogen <2.0 (<2.0) mg/dL Ur Leukocyte Esterase Large H (Negative) Urine RBC 11 H (0-5) /hpf Urine WBC >182 H (0-5) /hpf Urine WBC Clumps Many H (None) /hpf Urine Bacteria Moderate H (None) /hpf Cellular Casts 32 (0) /lpf Urine Mucus Rare H (None) /hpf Disposition Clinical Impression: UTI (urinary tract infection), Leukocytosis Disposition: HOME SELF-CARE Condition: Good Instructions (If sedation given, give patient instructions): Urinary Tract Infection in Men (ED), Solo Catheter Placement and Care (ED) Additional Instructions: Take antibiotics as prescribed starting tomorrow. Follow-up with your primary care physician and urologist. Return to the ED if any alarming signs or symptoms occur. Prescriptions: Ciprofloxacin HCl [Cipro] 500 mg PO Q12HR 7 Days #14 tab Is patient prescribed a controlled substance at d/c from ED?: No Referrals: George Whitlock DO [Primary Care Provider] - 1-2 days Time of Disposition: 23:31
[2019-06-21] MEDS ORDERED: LIDOCAINE URO-JET JELLY 2% 5 ML KIT URETHRAL ONE (22:17)
[2019-06-21 22:28] LABS: Basophils % (A) 0 %; Eosinophils # (A) 0.3 k/uL (0-0.7); Eosinophils % (A) 2 %; HCT 32.4 % (39.0-53.0); HGB 10.5 gm/dL (13.0-17.5); Lymphocytes # (A) 1.6 k/uL (1.0-4.8); Lymphocytes % (A) 10 %; MCH 27.2 pg (25.0-35.0); MCHC 32.3 g/dL (31.0-37.0); MCV 84.1 fL (80.0-100.0); Mean Platelet Volume 8.3; Monocytes # (A) 0.7 k/uL (0-1.0); Monocytes % (A) 4 %; Neutrophils # (A) 13.8 k/uL (1.3-7.7); Neutrophils % (A) 83 %; Platelet Count 206 k/uL (150-450); RBC 3.85 m/uL (4.30-5.90); RDW 14.9 % (11.5-15.5); WBC 16.6 k/uL (3.8-10.6)
[2019-06-21 22:33] LABS: INR 1.2 (<1.2); Partial Thromboplastin Time 25.5 sec (22.0-30.0); Prothrombin Time 11.8 sec (9.0-12.0)
[2019-06-21 22:36] LABS: Albumin 3.5 g/dL (3.5-5.0); Calcium 8.8 mg/dL (8.4-10.2); Potassium 4.5 mmol/L (3.5-5.1); Total Bilirubin 0.5 mg/dL (0.2-1.3); Total Protein 6.9 g/dL (6.3-8.2)
[2019-06-21 22:50] LABS: Appearance,Urine Cloudy (Clear); Bacteria,Urine Moderate /hpf; Bilirubin,Urine Negative (Negative); Blood,Urine Small (Negative); Cellular Casts,Urine 32 /lpf (0); Color,Urine Yellow; Glucose,Urine (UA) Negative (Negative); Ketones,Urine Negative (Negative); Leukocyte Esterase,Urine Large (Negative); Mucus,Urine Rare /hpf; Nitrite,Urine Negative (Negative); PH, Urine 5.5 (5.0-8.0); Protein,Urine 1+ (Negative); RBC,Urine 11 /hpf (0-5); Specific Gravity,Urine 1.014 (1.001-1.035); Urobilinogen,Urine <2.0 mg/dL (<2.0); WBC,Urine >182 /hpf (0-5)
[2019-06-21 23:18] VITALS: TEMP 97.7
[2019-06-21 23:54] VITALS: BP 133/53; PULSE 61
== END 2019-06-22 00:40 | disposition home or self-care (01) ==
LOC: EC 21:02
DX: N39.0 Urinary tract infection, site not specified (principal); T83.098A Other mechanical complication of other urinary catheter, initial encounter; E11.9 Type 2 diabetes mellitus without complications; E78.5 Hyperlipidemia, unspecified; I10 Essential (primary) hypertension; N40.0 Benign prostatic hyperplasia without lower urinary tract symptoms; I47.2 Ventricular tachycardia; Z79.4 Long term (current) use of insulin; Z79.899 Other long term (current) drug therapy; Z86.19 Personal history of other infectious and parasitic diseases
CPT/HCPCS: 36415; 93005; 80053; 82150; 83605; 83690; 85025; 85610; 85730; 81001; 87040; 99284; 96365; 96361; 51702; J0696; 87086

== ENCOUNTER 2019-06-27 22:50 | Emergency (ER) | payer MEDICARE, BC ==
[2019-06-27 23:09] VITALS: PULSE 68; TEMP 98.8
[2019-06-27 23:52] LABS: Glucose,Whole Blood 88 mg/dL (75-99)
[2019-06-28 00:03] LABS: Basophils % (A) 0 %; Eosinophils # (A) 0.3 k/uL (0-0.7); Eosinophils % (A) 3 %; HCT 34.8 % (39.0-53.0); HGB 11.3 gm/dL (13.0-17.5); Hypochromasia Slight; Lymphocytes # (A) 1.8 k/uL (1.0-4.8); Lymphocytes % (A) 19 %; MCH 27.5 pg (25.0-35.0); MCHC 32.5 g/dL (31.0-37.0); MCV 84.6 fL (80.0-100.0); Mean Platelet Volume 8.2; Monocytes # (A) 0.5 k/uL (0-1.0); Monocytes % (A) 5 %; Neutrophils # (A) 6.7 k/uL (1.3-7.7); Neutrophils % (A) 70 %; Platelet Count 222 k/uL (150-450); RBC 4.11 m/uL (4.30-5.90); RDW 15.1 % (11.5-15.5); WBC 9.5 k/uL (3.8-10.6)
[2019-06-28 00:10] LABS: Appearance,Urine Cloudy (Clear); Bacteria,Urine Rare /hpf; Bilirubin,Urine Negative (Negative); Blood,Urine Trace (Negative); Budding Yeast,Urine Many /hpf; Color,Urine Yellow; Glucose,Urine (UA) Negative (Negative); INR 1.2 (<1.2); Ketones,Urine Negative (Negative); Leukocyte Esterase,Urine Large (Negative); Mucus,Urine Rare /hpf; Nitrite,Urine Negative (Negative); Protein,Urine Trace (Negative); Prothrombin Time 12.4 sec (9.0-12.0); RBC,Urine 13 /hpf (0-5); Specific Gravity,Urine 1.013 (1.001-1.035); Squamous Epithelial Cell,Urine <1 /hpf (0-4); Urobilinogen,Urine <2.0 mg/dL (<2.0); WBC,Urine >182 /hpf (0-5)
[2019-06-28 00:12] LABS: Amphetamine Screen,Urine Not Detected (NotDetected); Barbiturate Screen,Urine Not Detected (NotDetected); Benzodiazepines Screen,Urine Not Detected (NotDetected); Cocaine Screen,Urine Not Detected (NotDetected); Methadone Screen, Urine Not Detected (NotDetected); Opiate Screen,Urine Not Detected (NotDetected); Oxycodone Screen, Urine Not Detected (NotDetected); Phencyclidine Screen,Urine Not Detected (NotDetected); Tricyclic Antidepressant,Urine Not Detected (NotDetected); Urn Cannabinoid Scrn Not Detected (NotDetected)
[2019-06-28 00:12] LABS: Albumin 3.8 g/dL (3.5-5.0); Calcium 9.1 mg/dL (8.4-10.2); Potassium 4.3 mmol/L (3.5-5.1); Total Bilirubin 0.4 mg/dL (0.2-1.3); Total Protein 7.3 g/dL (6.3-8.2)
--- NOTE | 2019-06-28 00:19 | CT ---
EXAMINATION TYPE: CT brain wo con DATE OF EXAM: 06/28/2019 COMPARISON: 03/11/2019 HISTORY: AMS CT DLP: 1154.40 mGycm Automated exposure control for dose reduction was used. There is patchy hypodensity in the periventricular white matter. There is no mass effect nor midline shift. There is no sign of intracranial hemorrhage. Calvarium is intact. There is diffuse cerebral at rophy. IMPRESSION: Cerebral atrophy and chronic small vessel ischemia. No acute intracranial abnormality. No change.
--- NOTE | 2019-06-28 00:28 | XR ---
EXAMINATION TYPE: XR chest 2V DATE OF EXAM: 06/28/2019 COMPARISON: 05/06/2019 HISTORY: Altered mental status TECHNIQUE: FINDINGS: Heart is normal. Lungs are clear of consolidation. There is minimal density in the right mi dlung field. There is no heart failure. There is left axillary pacemaker. There is no pleural effusio n. There is calcification at the right shoulder joint related to old humeral neck fracture. IMPRESSION: Minimal infiltrate right midlung field. There is clearing of the mild heart failure cielo red to old exam.
--- NOTE | 2019-06-28 00:44 | ED ---
General Adult HPI - General Chief complaint: Recheck/Abnormal Lab/Rx Stated complaint: UTI Source: patient, EMS Mode of arrival: EMS - History of Present Illness Initial comments: The patient is a 74-year-old male with history of chronic indwelling Saenz with recurrent UTIs for diabetes, hypertension and hyperlipidemia who presents to the emergency department with the statement that "I don't know why I'm here". The patient does live at [facility]. He does have assisted care from 8 AM in the morning to 10 PM at night. He states that he pressed the call light around his neck because he felt he needed to come to the hospital however he does not know why. He admits to having chronic hip pain however has no new pain. Denies any trauma or falls. Denies any chest pain or shortness of breath. Denies abdominal pain. Patient relates to me that he was recently in the ER and was diagnosed with urinary tract infection. He is able to tell me that he got 2 g of Rocephin while here and picked up her prescription for Cipro. He is interested in the culture results from that urinalysis. He denies any dysuria. Mild dribbling around the Saenz. I did call the patient's son to obtain more h istory. He states that his father likes to seek attention and be transported to the emergency department. He states that his father hasn't had any recent complaints. He has been asking him to come visit him as he has been lonely. The son states that he is usually able to intercept the call to EMS and came into his father not to go to the ER however he states that he was sleeping tonight and unfortunately his father was transported. The patient denies any new complaints. There are no alleviating, Perceptin or modifying factors - Related Data Home Medications Medication Instructions Recorded Confirmed Amiodarone [Cordarone] 200 mg PO DAILY 01/03/19 05/01/19 Atorvastatin [Lipitor] 10 mg PO HS 01/03/19 05/01/19 amLODIPine [Norvasc] 5 mg PO DAILY 01/03/19 05/01/19 Tamsulosin [Flomax] 0.4 mg PO HS 02/01/19 05/01/19 INSULIN ASPART (NovoLOG) [NovoLOG 5 unit SQ AC-TID 03/11/19 05/01/19 (formulary)] Latanoprost [Xalatan 0.005%] 1 drop BOTH EYES HS 03/11/19 05/01/19 Insulin Glargine [Lantus] 44 unit SQ HS 05/01/19 05/01/19 Metoprolol Tartrate [Lopressor] 50 mg PO BID 05/01/19 05/01/19 Previous Rx's Medication Instructions Recorded Acetaminophen Tab [Tylenol] 500 mg PO Q6HR PRN tab 05/07/19 Amoxic-Pot Clav 500-125 mg 1 each PO Q12HR #6 tab 05/07/19 [Augmentin 500-125 mg] Furosemide [Lasix] 40 mg PO DAILY #1 tablet 05/07/19 Ipratropium-Albuterol Nebulize 3 ml INHALATION RT-QID PRN ml 05/07/19 [Duoneb 0.5 mg-3 mg/3 ml Soln] Loratadine [Claritin] 5 mg PO BID tab 05/07/19 Menthol-Zinc Oxide Oint 1 applic TOPICAL BID PRN applic 05/07/19 [Calmoseptine Oint] Sodium Bicarbonate Tab 1,300 mg PO BID tab 05/07/19 guaiFENesin [Mucinex] 1,200 mg PO Q12HR tablet.er 05/07/19 Magnesium Oxide [Mag-Ox] 400 mg PO DAILY #15 tablet 06/15/19 Ciprofloxacin HCl [Cipro] 500 mg PO Q12HR 7 Days #14 tab 06/21/19 Nitrofurantoin Monohyd/M-Cryst 100 mg PO Q12HR #14 cap 06/28/19 [Macrobid] Allergies Allergy/AdvReac Type Severity Reaction Status Date / Time No Known Allergies Allergy Verified 05/01/19 15:06 Review of Systems ROS Statement: Those systems with pertinent positive or pertinent negative responses have been documented in the HPI. ROS Other: All systems not noted in ROS Statement are negative. Past Medical History Past Medical History: Diabetes Mellitus, Hyperlipidemia, Hypertension, Osteoarthritis (OA), Prostate Disorder Additional Past Medical History / Comment(s): Enlarged prostate irregular heartrate ventricular tachycardia shoulder fracture x 4 hip fracture does not ambulate History of Any Multi-Drug Resistant Organisms: None Reported Past Surgical History: Orthopedic Surgery, Pacemaker Additional Past Surgical History / Comment(s): nasal surgery, hip surgery, urinary retention, several basal cell carcinoma removals Type of Cardiac Device: Permanent Pacemaker Device Placement Date:: 2017 Past Psychological History: No Psychological Hx Reported Smoking Status: Never smoker Past Alcohol Use History: None Reported Past Drug Use History: None Reported - Past Family History Family Family Medical History: No Reported History Course Vital Signs 06/27/19 06/28/19 06/28/19 23:06 00:29 00:30 Temperature 98.8 F Pulse Rate 68 69 Respiratory 18 18 20 Rate Blood Pressure 137/65 137/60 O2 Sat by Pulse 96 97 95 Oximetry 06/28/19 06/28/19 06/28/19 00:40 00:50 01:00 Temperature Pulse Rate 70 68 68 Respiratory 15 21 19 Rate Blood Pressure 137/60 137/60 137/60 O2 Sat by Pulse 95 95 95 Oximetry EKG Findings - EKG Comments: EKG Findings:: EKG demonstrates a sinus rhythm with first-degree AV block. Rate of 69. MO interval is 284. QRS 116. QTC of 454. Significant baseline artifact. EKG is compared to previous and has similar morphology Medical Decision Making - Medical Decision Making On arrival the patient is placed into room 5. A thorough history and physical exam is performed. The patient states that he does not know his first name however he is able to provide details of his living situation, recently prescribed medications and changes to his medications. He is able to describe details of his past medical history and recent global events. The patient is aware of the date and time and he tells surrounding the transfer to the hospital. The patient denies feeling confused. I did recommend laboratory studies, CT of the patient's brain and a chest x-ray. The patient did agree to this. Laboratory studies demonstrate a hemoglobin of 11.3. Creatinine is 2.4. The patient does have chronic kidney disease. Troponin is 0.015. Patient only has detectable troponin. Urine analysis demonstrates large accessories, 13 red blood cells, greater than 182 white blood cells, moderate white blood cell clumps and 1 bacteria urine coronavirus is negative. Chest x-ray demonstrates minimal infiltrate of the right mid lung CT of the brain demonstrates cerebral atrophy and chronic small vessel ischemia. I discussed results with the patient. He is requesting discharge home at this time. I did review his culture results from his last ER visit. He does demonstrate that the E. coli was resistant to Cipro. Because of this I will admit the patient on Macrobid. He has no clinical signs of urinary tract infection and this may represent colonization. I did speak with the patient's son who agreed that the patient could be return safely to his home. The patient was transferred back by EMS - Lab Data Result diagrams: 06/27/19 21:40 06/27/19 23:40 Lab Results 06/27/19 06/27/19 06/27/19 Range/Units 21:40 21:40 21:40 WBC 9.5 (3.8-10.6) k/uL RBC 4.11 L (4.30-5.90) m/uL Hgb 11.3 L (13.0-17.5) gm/dL Hct 34.8 L (39.0-53.0) % MCV 84.6 (80.0-100.0) fL MCH 27.5 (25.0-35.0) pg MCHC 32.5 (31.0-37.0) g/dL RDW 15.1 (11.5-15.5) % Plt Count 222 (150-450) k/uL Neutrophils % 70 % Lymphocytes % 19 % Monocytes % 5 % Eosinophils % 3 % Basophils % 0 % Neutrophils # 6.7 (1.3-7.7) k/uL Lymphocytes # 1.8 (1.0-4.8) k/uL Monocytes # 0.5 (0-1.0) k/uL Eosinophils # 0.3 (0-0.7) k/uL Basophils # 0.0 (0-0.2) k/uL Hypochromasia Slight PT 12.4 H (9.0-12.0) sec INR 1.2 H (<1.2) APTT 25.0 (22.0-30.0) sec Sodium (137-145) mmol/L Potassium (3.5-5.1) mmol/L Chloride (98-107) mmol/L Carbon Dioxide (22-30) mmol/L Anion Gap mmol/L BUN (9-20) mg/dL Creatinine (0.66-1.25) mg/dL Est GFR (CKD-EPI)AfAm (>60 ml/min/1.73 sqM) Est GFR (CKD-EPI)NonAf (>60 ml/min/1.73 sqM) Glucose (74-99) mg/dL POC Glucose (mg/dL) (75-99) mg/dL POC Glu Utilities Manager ID Calcium (8.4-10.2) mg/dL Total Bilirubin (0.2-1.3) mg/dL AST (17-59) U/L ALT (4-49) U/L Alkaline Phosphatase (38-126) U/L Creatine Kinase (55-170) U/L Troponin I 0.015 (0.000-0.034) ng/mL Total Protein (6.3-8.2) g/dL Albumin (3.5-5.0) g/dL Urine Color Urine Appearance (Clear) Urine pH (5.0-8.0) Ur Specific [place] (1.001-1.035) Urine Protein (Negative) Urine Glucose (UA) (Negative) Urine Ketones (Negative) Urine Blood (Negative) Urine Nitrite (Negative) Urine Bilirubin (Negative) Urine Urobilinogen (<2.0) mg/dL Ur Leukocyte Esterase (Negative) Urine RBC (0-5) /hpf Urine WBC (0-5) /hpf Urine WBC Clumps (None) /hpf Ur Squamous Epith Cells (0-4) /hpf Urine Bacteria (None) /hpf Urine Mucus (None) /hpf Urine Yeast (Budding) (None) /hpf Urine Opiates Screen (NotDetected) Ur Oxycodone Screen (NotDetected) Urine Methadone Screen (NotDetected) Ur Propoxyphene Screen (NotDetected) Ur Barbiturates Screen (NotDetected) U Tricyclic Antidepress (NotDetected) Ur Phencyclidine Scrn (NotDetected) Ur Amphetamines Screen (NotDetected) U Methamphetamines Scrn (NotDetected) U Benzodiazepines Scrn (NotDetected) Urine Cocaine Screen (NotDetected) U Marijuana (THC) Screen (NotDetected) Coronavirus (PCR) (Not Detectd) 06/27/19 06/27/19 06/27/19 Range/Units 21:40 23:40 23:50 WBC (3.8-10.6) k/uL RBC (4.30-5.90) m/uL Hgb (13.0-17.5) gm/dL Hct (39.0-53.0) % MCV (80.0-100.0) fL MCH (25.0-35.0) pg MCHC (31.0-37.0) g/dL RDW (11.5-15.5) % Plt Count (150-450) k/uL Neutrophils % % Lymphocytes % % Monocytes % % Eosinophils % % Basophils % % Neutrophils # (1.3-7.7) k/uL Lymphocytes # (1.0-4.8) k/uL Monocytes # (0-1.0) k/uL Eosinophils # (0-0.7) k/uL Basophils # (0-0.2) k/uL Hypochromasia PT (9.0-12.0) sec INR (<1.2) APTT (22.0-30.0) sec Sodium 136 L (137-145) mmol/L Potassium 4.3 (3.5-5.1) mmol/L Chloride 100 (98-107) mmol/L Carbon Dioxide 26 (22-30) mmol/L Anion Gap 10 mmol/L BUN 27 H (9-20) mg/dL Creatinine 2.46 H (0.66-1.25) mg/dL Est GFR (CKD-EPI)AfAm 28 (>60 ml/min/1.73 sqM) Est GFR (CKD-EPI)NonAf 25 (>60 ml/min/1.73 sqM) Glucose 84 (74-99) mg/dL POC Glucose (mg/dL) 88 (75-99) mg/dL POC Glu Utilities Manager ID Sneha Grewal A Calcium 9.1 (8.4-10.2) mg/dL Total Bilirubin 0.4 (0.2-1.3) mg/dL AST 25 (17-59) U/L ALT 18 (4-49) U/L Alkaline Phosphatase 94 (38-126) U/L Creatine Kinase 24 L (55-170) U/L Troponin I (0.000-0.034) ng/mL Total Protein 7.3 (6.3-8.2) g/dL Albumin 3.8 (3.5-5.0) g/dL Urine Color Yellow Urine Appearance Cloudy (Clear) Urine pH 5.0 (5.0-8.0) Ur Specific [place] 1.013 (1.001-1.035) Urine Protein Trace H (Negative) Urine Glucose (UA) Negative (Negative) Urine Ketones Negative (Negative) Urine Blood Trace H (Negative) Urine Nitrite Negative (Negative) Urine Bilirubin Negative (Negative) Urine Urobilinogen <2.0 (<2.0) mg/dL Ur Leukocyte Esterase Large H (Negative) Urine RBC 13 H (0-5) /hpf Urine WBC >182 H (0-5) /hpf Urine WBC Clumps Moderate H (None) /hpf Ur Squamous Epith Cells <1 (0-4) /hpf Urine Bacteria Rare H (None) /hpf Urine Mucus Rare H (None) /hpf Urine Yeast (Budding) Many H (None) /hpf Urine Opiates Screen Not Detected (NotDetected) Ur Oxycodone Screen Not Detected (NotDetected) Urine Methadone Screen Not Detected (NotDetected) Ur Propoxyphene Screen Not Detected (NotDetected) Ur Barbiturates Screen Not Detected (NotDetected) U Tricyclic Antidepress Not Detected (NotDetected) Ur Phencyclidine Scrn Not Detected (NotDetected) Ur Amphetamines Screen Not Detected (NotDetected) U Methamphetamines Scrn Not Detected (NotDetected) U Benzodiazepines Scrn Not Detected (NotDetected) Urine Cocaine Screen Not Detected (NotDetected) U Marijuana (THC) Screen Not Detected (NotDetected) Coronavirus (PCR) (Not Detectd) 06/27/19 Range/Units 23:55 WBC (3.8-10.6) k/uL RBC (4.30-5.90) m/uL Hgb (13.0-17.5) gm/dL Hct (39.0-53.0) % MCV (80.0-100.0) fL MCH (25.0-35.0) pg MCHC (31.0-37.0) g/dL RDW (11.5-15.5) % Plt Count (150-450) k/uL Neutrophils % % Lymphocytes % % Monocytes % % Eosinophils % % Basophils % % Neutrophils # (1.3-7.7) k/uL Lymphocytes # (1.0-4.8) k/uL Monocytes # (0-1.0) k/uL Eosinophils # (0-0.7) k/uL Basophils # (0-0.2) k/uL Hypochromasia PT (9.0-12.0) sec INR (<1.2) APTT (22.0-30.0) sec Sodium (137-145) mmol/L Potassium (3.5-5.1) mmol/L Chloride (98-107) mmol/L Carbon Dioxide (22-30) mmol/L Anion Gap mmol/L BUN (9-20) mg/dL Creatinine (0.66-1.25) mg/dL Est GFR (CKD-EPI)AfAm (>60 ml/min/1.73 sqM) Est GFR (CKD-EPI)NonAf (>60 ml/min/1.73 sqM) Glucose (74-99) mg/dL POC Glucose (mg/dL) (75-99) mg/dL POC Glu Utilities Manager ID Calcium (8.4-10.2) mg/dL Total Bilirubin (0.2-1.3) mg/dL AST (17-59) U/L ALT (4-49) U/L Alkaline Phosphatase (38-126) U/L Creatine Kinase (55-170) U/L Troponin I (0.000-0.034) ng/mL Total Protein (6.3-8.2) g/dL Albumin (3.5-5.0) g/dL Urine Color Urine Appearance (Clear) Urine pH (5.0-8.0) Ur Specific [place] (1.001-1.035) Urine Protein (Negative) Urine Glucose (UA) (Negative) Urine Ketones (Negative) Urine Blood (Negative) Urine Nitrite (Negative) Urine Bilirubin (Negative) Urine Urobilinogen (<2.0) mg/dL Ur Leukocyte Esterase (Negative) Urine RBC (0-5) /hpf Urine WBC (0-5) /hpf Urine WBC Clumps (None) /hpf Ur Squamous Epith Cells (0-4) /hpf Urine Bacteria (None) /hpf Urine Mucus (None) /hpf Urine Yeast (Budding) (None) /hpf Urine Opiates Screen (NotDetected) Ur Oxycodone Screen (NotDetected) Urine Methadone Screen (NotDetected) Ur Propoxyphene Screen (NotDetected) Ur Barbiturates Screen (NotDetected) U Tricyclic Antidepress (NotDetected) Ur Phencyclidine Scrn (NotDetected) Ur Amphetamines Screen (NotDetected) U Methamphetamines Scrn (NotDetected) U Benzodiazepines Scrn (NotDetected) Urine Cocaine Screen (NotDetected) U Marijuana (THC) Screen (NotDetected) Coronavirus (PCR) Not Detected (Not Detectd) Disposition Clinical Impression: Urinary tract infection Disposition: HOME SELF-CARE Condition: Stable Instructions (If sedation given, give patient instructions): Urinary Tract Infection in Men (ED) Additional Instructions: Please follow-up with your primary care doctor. Finish taking the Cipro and start taking the macrobid in addition to the Cipro. Return to the emergency room for any new or worsening symptoms Prescriptions: Nitrofurantoin Monohyd/M-Cryst [Macrobid] 100 mg PO Q12HR #14 cap Is patient prescribed a controlled substance at d/c from ED?: No Referrals: George Whitlock DO [Primary Care Provider] - 1-2 days Time of Disposition: 00:51
[2019-06-28] MEDS ORDERED: NITROFURANTOIN MONOHYD/M-CRYST 100 MG CAP PO STA (00:59)
[2019-06-28 01:10] VITALS: BP 137/60; RESP 19
== END 2019-06-28 01:40 | disposition home or self-care (01) ==
LOC: EC 22:50
DX: N39.0 Urinary tract infection, site not specified (principal); I12.9 Hypertensive chronic kidney disease with stage 1 through stage 4 chronic kidney disease, or unspecified chronic kidney disease; E11.22 Type 2 diabetes mellitus with diabetic chronic kidney disease; N18.9 Chronic kidney disease, unspecified; G89.29 Other chronic pain; M25.559 Pain in unspecified hip; E78.5 Hyperlipidemia, unspecified; N40.1 Benign prostatic hyperplasia with lower urinary tract symptoms; Z20.828 Contact with and (suspected) exposure to other viral communicable diseases; Z79.4 Long term (current) use of insulin; Z79.899 Other long term (current) drug therapy; Z85.828 Personal history of other malignant neoplasm of skin; Z95.0 Presence of cardiac pacemaker
CPT/HCPCS: 36415; 70450; 71046; 80053; 80306; 81001; 82550; 84484; 85025; 85610; 85730; 87086; 87635; 93005; 99284

== ENCOUNTER 2019-06-30 04:25 | Inpatient (IN) | payer MEDICARE, BC ==
--- NOTE | 2019-06-30 04:56 | ED ---
General Adult HPI - General Chief complaint: Altered Mental Status Stated complaint: Altered Mental Status Time Seen by Provider: 06/30/19 04:28 Source: patient, family, EMS, RN notes reviewed, old records reviewed Mode of arrival: EMS Limitations: altered mental status - History of Present Illness Initial comments: 74-year-old male presents for medical evaluation. Patient had called EMS approximately 18 times throughout the day today. He was ultimately transported at approximately 4:30 AM in the morning. When he arrives at the emergency department he states that he does not know why he is here. He is currently staying at an assisted living facility. He has at home nursing care. He has no pain complaints. He continually repeats "I don't know why I'm here". Vital signs are stable upon arrival. I did review the medical record which indicates that the patient was here several days ago with the nearly exact same situation. At that time he was discharged home after an extensive ER workup. I was able to have a long discussion with the patient's son who states that he has been in [facility] facilities on 2 different occasions this year. Patient did mention to EMS that he was suicidal. He denies suicidal ideation to me. - Related Data Home Medications Medication Instructions Recorded Confirmed Amiodarone [Cordarone] 200 mg PO DAILY 01/03/19 05/01/19 Atorvastatin [Lipitor] 10 mg PO HS 01/03/19 05/01/19 amLODIPine [Norvasc] 5 mg PO DAILY 01/03/19 05/01/19 Tamsulosin [Flomax] 0.4 mg PO HS 02/01/19 05/01/19 INSULIN ASPART (NovoLOG) [NovoLOG 5 unit SQ AC-TID 03/11/19 05/01/19 (formulary)] Latanoprost [Xalatan 0.005%] 1 drop BOTH EYES HS 03/11/19 05/01/19 Insulin Glargine [Lantus] 44 unit SQ HS 05/01/19 05/01/19 Metoprolol Tartrate [Lopressor] 50 mg PO BID 05/01/19 05/01/19 Previous Rx's Medication Instructions Recorded Acetaminophen Tab [Tylenol] 500 mg PO Q6HR PRN tab 05/07/19 Amoxic-Pot Clav 500-125 mg 1 each PO Q12HR #6 tab 05/07/19 [Augmentin 500-125 mg] Furosemide [Lasix] 40 mg PO DAILY #1 tablet 05/07/19 Ipratropium-Albuterol Nebulize 3 ml INHALATION RT-QID PRN ml 05/07/19 [Duoneb 0.5 mg-3 mg/3 ml Soln] Loratadine [Claritin] 5 mg PO BID tab 05/07/19 Menthol-Zinc Oxide Oint 1 applic TOPICAL BID PRN applic 05/07/19 [Calmoseptine Oint] Sodium Bicarbonate Tab 1,300 mg PO BID tab 05/07/19 guaiFENesin [Mucinex] 1,200 mg PO Q12HR tablet.er 05/07/19 Magnesium Oxide [Mag-Ox] 400 mg PO DAILY #15 tablet 06/15/19 Ciprofloxacin HCl [Cipro] 500 mg PO Q12HR 7 Days #14 tab 06/21/19 Nitrofurantoin Monohyd/M-Cryst 100 mg PO Q12HR #14 cap 06/28/19 [Macrobid] Allergies Allergy/AdvReac Type Severity Reaction Status Date / Time No Known Allergies Allergy Verified 06/30/19 04:33 Review of Systems ROS Statement: Those systems with pertinent positive or pertinent negative responses have been documented in the HPI. ROS Other: All systems not noted in ROS Statement are negative. Past Medical History Past Medical History: Diabetes Mellitus, Hyperlipidemia, Hypertension, Osteoarthritis (OA), Prostate Disorder Additional Past Medical History / Comment(s): Enlarged prostate irregular heartrate ventricular tachycardia shoulder fracture x 4 hip fracture does not ambulate History of Any Multi-Drug Resistant Organisms: None Reported Past Surgical History: Orthopedic Surgery, Pacemaker Additional Past Surgical History / Comment(s): nasal surgery, hip surgery, urinary retention, several basal cell carcinoma removals Type of Cardiac Device: Permanent Pacemaker Device Placement Date:: 2017 Past Psychological History: No Psychological Hx Reported Smoking Status: Never smoker Past Alcohol Use History: None Reported Past Drug Use History: None Reported - Past Family History Family Family Medical History: No Reported History General Exam Limitations: altered mental status General appearance: alert, in no apparent distress Head exam: Present: atraumatic, normocephalic Eye exam: Present: normal appearance, PERRL ENT exam: Present: normal exam Neck exam: Present: normal inspection. Absent: tenderness, meningismus Respiratory exam: Present: normal lung sounds bilaterally. Absent: respiratory distress, wheezes Cardiovascular Exam: Present: regular rate, normal rhythm GI/Abdominal exam: Present: soft. Absent: distended, tenderness exam: Present: other (Indwelling Saenz catheter) Extremities exam: Present: normal inspection, normal capillary refill. Absent: calf tenderness Back exam: Present: normal inspection, full ROM Neurological exam: Present: alert, CN II-XII intact. Absent: oriented X3, motor sensory deficit Psychiatric exam: Present: flat affect Skin exam: Present: warm, dry, intact. Absent: cyanosis, diaphoretic, erythema Course Vital Signs 06/30/19 04:31 Temperature 98.1 F Pulse Rate 64 Respiratory 18 Rate Blood Pressure 136/64 O2 Sat by Pulse 98 Oximetry - Reevaluation(s) Reevaluation #1: 06/30/19 05:06 Workup reviewed from ER visit 3 days ago, patient had head CT at that time which was negative for any acute intracranial pathology. CBC, electrolytes, and urinalysis and culture will be repeated. Reevaluation #2: 06/30/19 05:08 Patient had UTI with both E. coli and pseudomonas on culture. Given the susceptibility, patient will be initiated on both ceftriaxone for E. coli and Levaquin for pseudomonas as the E. coli was resistant to Levaquin. Awaiting repeat culture results. 06/30/19 05:09 Medical Decision Making - Medical Decision Making 74 presenting with confusion, UTI and reported suicidal ideation to EMS. Denying further suicidal ideation at the time my evaluation. Did have a long discussion with the patient's son regarding his presentation. His son did speak with him on the phone and felt that he was somewhat confused. His son also did indicate that he can be manipulative. He had called EMS over a dozen times today. Patient is afebrile with stable vitals. Workup reveals normal CBC, kidney function is slightly elevated above normal with a creatinine of 2.7. Normal electrolytes. He has a persistent urinary tract infection. Previous culture results indicating both E. coli and pseudomonas. He is given antibiotics in the emergency department as well as IV fluids. He will be admitted for confusion, secondary to UTI, and possible [facility] placement. - Lab Data Result diagrams: 06/30/19 05:06 06/30/19 05:06 Lab Results 04/30/20 04/30/20 04/30/20 Range/Units 05:00 05:06 05:06 WBC 8.8 (3.8-10.6) k/uL RBC 3.90 L (4.30-5.90) m/uL Hgb 10.3 L (13.0-17.5) gm/dL Hct 33.0 L (39.0-53.0) % MCV 84.5 (80.0-100.0) fL MCH 26.5 (25.0-35.0) pg MCHC 31.3 (31.0-37.0) g/dL RDW 15.7 H (11.5-15.5) % Plt Count 213 (150-450) k/uL Neutrophils % 69 % Lymphocytes % 19 % Monocytes % 7 % Eosinophils % 3 % Basophils % 1 % Neutrophils # 6.1 (1.3-7.7) k/uL Lymphocytes # 1.7 (1.0-4.8) k/uL Monocytes # 0.6 (0-1.0) k/uL Eosinophils # 0.2 (0-0.7) k/uL Basophils # 0.1 (0-0.2) k/uL Sodium 137 (137-145) mmol/L Potassium 4.0 (3.5-5.1) mmol/L Chloride 99 (98-107) mmol/L Carbon Dioxide 26 (22-30) mmol/L Anion Gap 12 mmol/L BUN 35 H (9-20) mg/dL Creatinine 2.70 H (0.66-1.25) mg/dL Est GFR (CKD-EPI)AfAm 25 (>60 ml/min/1.73 sqM) Est GFR (CKD-EPI)NonAf 22 (>60 ml/min/1.73 sqM) Glucose 96 (74-99) mg/dL Calcium 8.7 (8.4-10.2) mg/dL Total Bilirubin 0.3 (0.2-1.3) mg/dL AST 22 (17-59) U/L ALT 17 (4-49) U/L Alkaline Phosphatase 88 (38-126) U/L Total Protein 6.7 (6.3-8.2) g/dL Albumin 3.6 (3.5-5.0) g/dL Urine Color Light Yellow Urine Appearance Cloudy (Clear) Urine pH 5.5 (5.0-8.0) Ur Specific [place] 1.011 (1.001-1.035) Urine Protein Trace H (Negative) Urine Glucose (UA) Negative (Negative) Urine Ketones Negative (Negative) Urine Blood Trace H (Negative) Urine Nitrite Negative (Negative) Urine Bilirubin Negative (Negative) Urine Urobilinogen <2.0 (<2.0) mg/dL Ur Leukocyte Esterase Large H (Negative) Urine RBC 17 H (0-5) /hpf Urine WBC >182 H (0-5) /hpf Urine WBC Clumps Few H (None) /hpf Ur Squamous Epith Cells <1 (0-4) /hpf Urine Bacteria Rare H (None) /hpf Hyaline Casts 1 (0-2) /lpf Urine Mucus Rare H (None) /hpf Urine Yeast (Budding) Moderate H (None) /hpf Coronavirus (PCR) (Not Detectd) 06/30/19 Range/Units 05:20 WBC (3.8-10.6) k/uL RBC (4.30-5.90) m/uL Hgb (13.0-17.5) gm/dL Hct (39.0-53.0) % MCV (80.0-100.0) fL MCH (25.0-35.0) pg MCHC (31.0-37.0) g/dL RDW (11.5-15.5) % Plt Count (150-450) k/uL Neutrophils % % Lymphocytes % % Monocytes % % Eosinophils % % Basophils % % Neutrophils # (1.3-7.7) k/uL Lymphocytes # (1.0-4.8) k/uL Monocytes # (0-1.0) k/uL Eosinophils # (0-0.7) k/uL Basophils # (0-0.2) k/uL Sodium (137-145) mmol/L Potassium (3.5-5.1) mmol/L Chloride (98-107) mmol/L Carbon Dioxide (22-30) mmol/L Anion Gap mmol/L BUN (9-20) mg/dL Creatinine (0.66-1.25) mg/dL Est GFR (CKD-EPI)AfAm (>60 ml/min/1.73 sqM) Est GFR (CKD-EPI)NonAf (>60 ml/min/1.73 sqM) Glucose (74-99) mg/dL Calcium (8.4-10.2) mg/dL Total Bilirubin (0.2-1.3) mg/dL AST (17-59) U/L ALT (4-49) U/L Alkaline Phosphatase (38-126) U/L Total Protein (6.3-8.2) g/dL Albumin (3.5-5.0) g/dL Urine Color Urine Appearance (Clear) Urine pH (5.0-8.0) Ur Specific [place] (1.001-1.035) Urine Protein (Negative) Urine Glucose (UA) (Negative) Urine Ketones (Negative) Urine Blood (Negative) Urine Nitrite (Negative) Urine Bilirubin (Negative) Urine Urobilinogen (<2.0) mg/dL Ur Leukocyte Esterase (Negative) Urine RBC (0-5) /hpf Urine WBC (0-5) /hpf Urine WBC Clumps (None) /hpf Ur Squamous Epith Cells (0-4) /hpf Urine Bacteria (None) /hpf Hyaline Casts (0-2) /lpf Urine Mucus (None) /hpf Urine Yeast (Budding) (None) /hpf Coronavirus (PCR) Not Detected (Not Detectd) Disposition Clinical Impression: Altered mental status, Urinary tract infection Disposition: ADMITTED IP TO THIS HOSP Condition: Stable Is patient prescribed a controlled substance at d/c from ED?: No Referrals: George Whitlock DO [Primary Care Provider] - 1-2 days Decision to Admit Reason: Admit from EC Decision Date: 06/30/19 Decision Time: 06:10
[2019-06-30] MEDS ORDERED: cefTRIAXone IN SWFI 1,000 MG/10 ML SYRINGE IVP STA (05:10)
[2019-06-30] MEDS ORDERED: LEVOFLOXACIN 500MG-D5W PMX 500 MG in DEXTROSE/WATER 1 100ML.BAG IVPB STA (05:10)
[2019-06-30 05:28] LABS: Basophils # (A) 0.1 k/uL (0-0.2); Basophils % (A) 1 %; Eosinophils # (A) 0.2 k/uL (0-0.7); Eosinophils % (A) 3 %; HGB 10.3 gm/dL (13.0-17.5); Lymphocytes # (A) 1.7 k/uL (1.0-4.8); Lymphocytes % (A) 19 %; MCH 26.5 pg (25.0-35.0); MCHC 31.3 g/dL (31.0-37.0); MCV 84.5 fL (80.0-100.0); Mean Platelet Volume 7.7; Monocytes # (A) 0.6 k/uL (0-1.0); Monocytes % (A) 7 %; Neutrophils # (A) 6.1 k/uL (1.3-7.7); Neutrophils % (A) 69 %; Platelet Count 213 k/uL (150-450); RDW 15.7 % (11.5-15.5); WBC 8.8 k/uL (3.8-10.6)
[2019-06-30] MEDS: SODIUM CHLORIDE 0.9% 1,000 ML IV SCH ×2 (05:32→17:30)
[2019-06-30 05:43] LABS: Appearance,Urine Cloudy (Clear); Bacteria,Urine Rare /hpf; Bilirubin,Urine Negative (Negative); Blood,Urine Trace (Negative); Budding Yeast,Urine Moderate /hpf; Color,Urine Light Yellow; Glucose,Urine (UA) Negative (Negative); Hyaline Casts,Urine 1 /lpf (0-2); Ketones,Urine Negative (Negative); Leukocyte Esterase,Urine Large (Negative); Mucus,Urine Rare /hpf; Nitrite,Urine Negative (Negative); PH, Urine 5.5 (5.0-8.0); Protein,Urine Trace (Negative); RBC,Urine 17 /hpf (0-5); Specific Gravity,Urine 1.011 (1.001-1.035); Squamous Epithelial Cell,Urine <1 /hpf (0-4); Urobilinogen,Urine <2.0 mg/dL (<2.0); WBC,Urine >182 /hpf (0-5)
[2019-06-30] MEDS ORDERED: NALOXONE 0.4 MG/ML 1 ML VIAL IV PRN (05:48)
[2019-06-30 05:49] LABS: Albumin 3.6 g/dL (3.5-5.0); Calcium 8.7 mg/dL (8.4-10.2); Total Bilirubin 0.3 mg/dL (0.2-1.3); Total Protein 6.7 g/dL (6.3-8.2)
[2019-06-30] MEDS ORDERED: ACETAMINOPHEN TAB 500 MG TAB PO PRN (06:01)
[2019-06-30] MEDS: METOPROLOL TARTRATE 50 MG TAB PO SCH ×2 (09:27→21:39)
[2019-06-30] MEDS: amLODIPine 5 MG TAB PO SCH (09:27)
[2019-06-30] MEDS ORDERED: MENTHOL-ZINC OXIDE OINT 113 GM TUBE TOPICAL PRN (10:08)
[2019-06-30] MEDS ORDERED: IPRATROPIUM-ALBUTEROL 3 ML NEB INHALATION PRN (10:08)
[2019-06-30] MEDS ORDERED: metFORMIN 500 MG TAB PO SCH (10:15)
[2019-06-30] MEDS ORDERED: NITROFURANTOIN MONOHYD/M-CRYST 100 MG CAP PO SCH (10:15)
[2019-06-30] MEDS: AMIODARONE 200 MG TAB PO SCH (11:26)
[2019-06-30] MEDS: guaiFENesin 600 MG TABLET.ER PO SCH ×2 (11:26→21:40)
[2019-06-30] MEDS: SODIUM BICARBONATE TAB 650 MG TAB PO SCH ×2 (11:26→21:39)
[2019-06-30] MEDS: ENOXAPARIN 40 MG/0.4 ML SYRINGE SQ SCH (11:27)
[2019-06-30 11:56] LABS: Glucose,Whole Blood 110 mg/dL (75-99)
[2019-06-30] MEDS: INSULIN ASPART (NovoLOG) 100 UNIT/ML VIAL SQ SCH ×2 (12:23→17:28)
--- NOTE | 2019-06-30 14:46 | P.CN ---
Psychiatric Consult - . Consult date: 06/30/19 Consult:: 06/30/19 14:39 IDENTIFYING DATA: This patient is a 74-year-old male who is currently living in assisted facility and receiving home nursing care has 2 kids and is . HISTORY OF PRESENT ILLNESS: The patient presented to the hospital via EMS after calling 18 times from his assisted living facility. Patient apparently was confused in the emergency department and was disoriented. Patient apparently came to that ER several days before this event with the same complaints and did not know why he was in the hospital. Computed tomography scan at that time was negative for any acute changes. Patient has a elevated creatinine at 2.7 and BUN at 35 and was found to have a UTI and was treated with antibiotics prior to coming up to the medical floors. Psychiatry is consulted for a psychiatric evaluation and recommendations. Patient was logical and spoke about his living facility and not knowing why he called to come to the hospital. He claims that there is been many changes in his living facility due to the virus and it has gotten him scared. He states that the staff are treating him well there and he had no other complaints. He claims that his mood is "fine" however at times during the interview patient almost became tearful and was emotional when talking about his past. He states that he is not suicidal and "never was" and states that he "just said that to come to the hospital". She claims that his mood has been "down at times" however was preoccupied with being discharged back home. He states that he has poor sleep approximately 1-2 hours of sleep and has a poor appetite. At this time patient denies any suicidal or homical ideations, intent or plan. Patient denies any auditory, visual hallucinations and denies any paranoia or delusions. Patients denies using any recreational drugs or cigar ettes. PAST PSYCHIATRIC HISTORY: He denies any outpatient psychiatric follow-up being on any psychiatric medications in the past or any hospitalizations. He denies any history of suicide attempts.. PAST MEDICAL HISTORY: Diabetes mellitus, hyperlipidemia, hypertension, osteoarthritis. ALLERGIES: as per EMR. CHEMICAL DEPENDENCY HISTORY: Denies. FAMILY PSYCHIATRIC/SUBSTANCE USE HISTORY: denies SOCIAL HISTORY: He states that he completed high school and was in the and applied several times. 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 He claims that he's been retired for 25 years. He states that he has 2 kids and is currently and living in an assisted living facility.. MENTAL STATUS EXAM: General Appearance: Patient appears to be stated age is alert, directable and attempts to be cooperative. Patient appears to have fair hygiene and grooming wearing hospital gown with poor eye contact. Behavior: Patient is calmly lying in bed without any agitated behavior. Some irritability and very mild tearfulness. Speech: Patient's speech is fluent and nonpressured. Mood/Affect: Patient reports their mood is "down at times", affect is congruent Suicidality/Homicidality: Patient denies having any suicidal or homicidal ideation intent or plan. Perceptions: Patient denies any visual hallucinations and denies any auditory hallucinations Though content/process: There is no evidence of any delusional thought content and thought process is linear and goal-directed. Preoccupied with going home. Memory and concentration: AOX3, fair attention span. Can spell "WORLD" backwards. Fair fund of knowledge. Judgment and insight: Limited IMPRESSIONS: Major depressive disorder, mild, recurrent PLAN: -At this time patient DOES NOT meet criteria for inpatient psychiatric admission. -Delirium precautions recommended with patient including - avoiding use of narcotics and AITCHBONE BREAKER sedatives, limit anticholinergic medications when possible, f requent re-orientation, minimize use of restraints, open window shades during the day and close them at night -Would recommend the following medication changes/additions: Started Remeron 15 mg daily at bedtime for insomnia/appetite/mood and also started Zoloft 50 mg daily for mood/anxiety. -Continue treatment of underlying medical condition including infection which may have added to patient's change in mental status. -Psychiatry will sign off at this point, please contact with any questions.
[2019-06-30] MEDS: SERTRALINE 50 MG TAB PO SCH (15:41)
--- NOTE | 2019-06-30 19:44 | P.HPIM ---
History of Present Illness H&P Date: 06/30/19 Chief Complaint: I am suicidal This is a 74-year-old patient of Dr. Whitlock. [facility]. Chronic stable medical conditions include diabetes, hypertension, hyperlipidemia, BPH. Chronic kidney disease. CHF EF 50-55% Patient normally uses a walker. Patient was getting frustrated at home because is followed a working. He kept calling the EMS. Hoping that they will come out and fixed the phone. When they did come out last few suicidal he said I was stupid enough to say I'm suicidal to get the attention. He goes on to say of course while the ambulance people come and fix my phone. I'll just being stupid again. Patient is found to have infected appearing urine in the ER as tolerated IV ceftriaxone. Denies any obvious fever and chills. Appetite is fair. Did feel a bit tired. Psychiatry was consulted. Review of systems: GEN.: None EYES: None HEENT: None NECK: None RESPIRATORY: None CARDIOVASCULAR: None GASTROINTESTINAL: None GENITOURINARY: None MUSCULOSKELETAL: Some joint pains LYMPHATICS: None HEMATOLOGICAL: None PSYCHIATRY: Anxious NEUROLOGICAL: Normal uses a walker Past medical history to include: diabetes, hypertension, hyperlipidemia, BPH. Uses a walker. Chronic kidney disease. CHF EF 50-55% Social history: Apparently lives in a prison. Denies any smoking or alcohol. Physical examination: VITAL SIGNS: 98.1, 64, 18, 136/64, 98% on room air GENERAL: Sitting up, a bit agitated EYES: Pupils equal. Conjunctiva normal. HEENT: External appearance of nose and ears normal, oral cavity grossly normal. NECK: JVD unable to assess; masses not palpable. HEART: [First and second heart sounds are normal; no edema LUNGS:[ Respiratory rate normal, fair entry ABDOMEN: Soft, nontender, liver spleen not palpable, no masses palpable. PSYCH: Alert and oriented x3; mood and affect slightly agitated, INVESTIGATIONS, reviewed in the clinical context: White count 8.8 hemoglobin 10.3 potassium 4 bun 35 creatinine 2.70 UA positive for leukoesterase, WBC and few bacteria previous testing BUN 27 creatinine 2.82 on May 06 Assessment: -Acute UTI from cystitis secondary to BPH, POA -chronic congestive heart failure exacerbation from diastolic dysfunction EF 50- 55% -Possible acute tracheobronchitis. -Hypertensive heart disease -Diabetes mellitus type 2 on oral hypoglycemic -Essential hypertension -Hyperlipidemia -BPH-with uterine outflow obstruction -Chronic kidney disease stage 4 likely from diabetic nephropathy and hypertensive nephrosclerosis, -Full code Plan: Patient started on ceftriaxone. Home medications resumed. Psychiatry was consulted. We will also DVT prophylaxis. Follow Accu-Cheks. DC Lasix for now. Past Medical History Past Medical History: Diabetes Mellitus, Hyperlipidemia, Hypertension, Osteoarthritis (OA), Prostate Disorder Additional Past Medical History / Comment(s): Enlarged prostate irregular heartrate ventricular tachycardia shoulder fracture x 4 hip fracture does not ambulate History of Any Multi-Drug Resistant Organisms: None Reported Past Surgical History: Orthopedic Surgery, Pacemaker Additional Past Surgical History / Comment(s): nasal surgery, hip surgery, urinary retention, several basal cell carcinoma removals Type of Cardiac Device: Permanent Pacemaker Device Placement Date:: 2017 Past Psychological History: No Psychological Hx Reported Smoking Status: Never smoker Past Alcohol Use History: None Reported Past Drug Use History: None Reported - Past Family History Family Family Medical History: No Reported History Medications and Allergies Home Medications Medication Instructions Recorded Confirmed Type Amiodarone [Cordarone] 200 mg PO DAILY 01/03/19 06/30/19 History Atorvastatin [Lipitor] 10 mg PO HS 01/03/19 06/30/19 History amLODIPine [Norvasc] 5 mg PO DAILY 01/03/19 06/30/19 History Tamsulosin [Flomax] 0.4 mg PO HS 02/01/19 06/30/19 History INSULIN ASPART (NovoLOG) [NovoLOG 5 unit SQ AC-TID 03/11/19 06/30/19 History (formulary)] Latanoprost [Xalatan 0.005%] 1 drop BOTH EYES HS 03/11/19 06/30/19 History Metoprolol Tartrate [Lopressor] 50 mg PO BID 05/01/19 06/30/19 History Acetaminophen Tab [Tylenol] 500 mg PO Q6HR PRN tab 05/07/19 06/30/19 Rx Furosemide [Lasix] 40 mg PO DAILY #1 tablet 05/07/19 06/30/19 Rx Ipratropium-Albuterol Nebulize 3 ml INHALATION RT-QID PRN ml 05/07/19 06/30/19 Rx [Duoneb 0.5 mg-3 mg/3 ml Soln] Loratadine [Claritin] 5 mg PO BID tab 05/07/19 06/30/19 Rx Menthol-Zinc Oxide Oint 1 applic TOPICAL BID PRN applic 05/07/19 06/30/19 Rx [Calmoseptine Oint] Sodium Bicarbonate Tab 1,300 mg PO BID tab 05/07/19 06/30/19 Rx guaiFENesin [Mucinex] 1,200 mg PO Q12HR tablet.er 05/07/19 06/30/19 Rx Magnesium Oxide [Mag-Ox] 400 mg PO DAILY #15 tablet 06/15/19 06/30/19 Rx Nitrofurantoin Monohyd/M-Cryst 100 mg PO Q12HR #14 cap 06/28/19 06/30/19 Rx [Macrobid] Allergies Allergy/AdvReac Type Severity Reaction Status Date / Time No Known Allergies Allergy Verified 06/30/19 09:53 Physical Exam Vitals: Vital Signs Temp Pulse Pulse Resp BP BP Pulse Ox 06/30/19 07:32 98.5 F 66 15 130/55 96 06/30/19 06:16 98.0 F 71 18 134/60 95 06/30/19 04:31 98.1 F 64 18 136/64 98 Intake and Output 06/29/19 06/30/19 06/30/19 22:59 06:59 14:59 Other: Weight 90.718 kg Results CBC & Chem 7: 06/30/19 05:06 06/30/19 05:06 Labs: Abnormal Lab Results - Last 24 Hours (Table) 06/30/19 06/30/19 06/30/19 Range/Units 05:00 05:06 05:06 RBC 3.90 L (4.30-5.90) m/uL Hgb 10.3 L (13.0-17.5) gm/dL Hct 33.0 L (39.0-53.0) % RDW 15.7 H (11.5-15.5) % BUN 35 H (9-20) mg/dL Creatinine 2.70 H (0.66-1.25) mg/dL Urine Protein Trace H (Negative) Urine Blood Trace H (Negative) Ur Leukocyte Esterase Large H (Negative) Urine RBC 17 H (0-5) /hpf Urine WBC >182 H (0-5) /hpf Urine WBC Clumps Few H (None) /hpf Urine Bacteria Rare H (None) /hpf Urine Mucus Rare H (None) /hpf Urine Yeast (Budding) Moderate H (None) /hpf Thrombosis Risk Factor Assmnt - Choose All That Apply Any of the Below Risk Factors Present?: Yes Each Risk Factor Represents 3 Points: Age 75 years or older Thrombosis Risk Factor Assessment Total Risk Factor Score: 3 Thrombosis Risk Factor Assessment Level: Moderate Risk
[2019-06-30] MEDS: LATANOPROST 0.005% OPHTH DROPS 2.5 ML BTL BOTH EYES SCH (21:38)
[2019-06-30] MEDS: INSULIN DETEMIR (LEVEMIR) 100 UNIT/ML SYR SQ SCH (21:38)
[2019-06-30] MEDS: TAMSULOSIN 0.4 MG CAP.ER.24H PO SCH (21:39)
[2019-06-30] MEDS: ATORVASTATIN 10 MG TAB PO SCH (21:39)
[2019-06-30] MEDS: MIRTAZAPINE 15 MG TAB PO SCH (21:39)
[2019-07-01] MEDS: SODIUM CHLORIDE 0.9% 1,000 ML IV SCH ×2 (07:17→21:00)
[2019-07-01] MEDS: INSULIN ASPART (NovoLOG) 100 UNIT/ML VIAL SQ SCH ×3 (07:19→17:21)
[2019-07-01 07:53] LABS: Glucose,Whole Blood 100 mg/dL (75-99)
[2019-07-01 08:02] LABS: Glucose,Whole Blood 48 mg/dL (75-99)
[2019-07-01 08:02] LABS: Glucose,Whole Blood 49 mg/dL (75-99)
[2019-07-01 08:02] LABS: Glucose,Whole Blood 169 mg/dL (75-99)
[2019-07-01 08:02] LABS: Glucose,Whole Blood 83 mg/dL (75-99)
[2019-07-01 08:02] LABS: Glucose,Whole Blood 110 mg/dL (75-99)
[2019-07-01] MEDS: guaiFENesin 600 MG TABLET.ER PO SCH ×2 (08:54→20:58)
[2019-07-01] MEDS: amLODIPine 5 MG TAB PO SCH (08:54)
[2019-07-01] MEDS: AMIODARONE 200 MG TAB PO SCH (08:55)
[2019-07-01] MEDS: ENOXAPARIN 40 MG/0.4 ML SYRINGE SQ SCH (08:55)
[2019-07-01] MEDS: METOPROLOL TARTRATE 50 MG TAB PO SCH ×2 (08:55→20:59)
[2019-07-01] MEDS: SERTRALINE 50 MG TAB PO SCH (08:55)
[2019-07-01 09:20] LABS: Calcium 8.7 mg/dL (8.4-10.2); Potassium 4.3 mmol/L (3.5-5.1)
[2019-07-01] MEDS: SODIUM BICARBONATE TAB 650 MG TAB PO SCH ×2 (10:59→20:59)
[2019-07-01 12:09] LABS: Glucose,Whole Blood 134 mg/dL (75-99)
--- NOTE | 2019-07-01 14:35 | CDI ---
Documentation Clarification Form Date: 07/01/2019 01:59:43 PM From: Charmaine France RN, CCDS Admit Date: 07/01/2019 01:35:00 PM Patient Name: Vinny Hoffmann Visit Number: [id number] Discharge Date: ATTENTION: The Clinical Documentation Specialists (CDI) and [facility] Coding Staff appreciate your assistance in clarifying documentation. Please respond to the clarification below the line at the bottom and electronically sign. The CDI & [facility] Coding staff will review the response and follow-up if needed. Please note: Queries are made part of the Legal Health Record. If you have any questions, please contact the author of this message via ITS. Dr. [place] Jim[facility]nez Emergency department note on 06/29 Indwelling Saenz catheter was documented, and the H&P has acute UTI from cystitis secondary to BPH and further clarification is requested. History/present illness: Chronic Saenz catheter, BPH, CKD stage IV, CHF, Diabetes Mellitus Clinical Indicators: 74-year-old male who present on 06/29 to ER with altered mental status and was ruled in for a urinary tract infection 06/30 Vital Signs: 130/49 60 18 98.4 06/29 WBC: 8.8, BUN 35, Cr 2.70 UA: Large Leukocyte Esterase, cultures pending Treatment Rocephin 1 gm IV q 24 hrs Please document the condition that these clinical indicators signify, whether Present on Admission, and cause if known: Acute UTI with Cystitis Saenz catheter related Contaminated specimen Other, please specify Unable to determine Present on Admission: Yes No (Last Revision: November 2016) Acute UTI and cystitis due to Saenz catheter, POA MTDD
[2019-07-01 16:56] LABS: Glucose,Whole Blood 114 mg/dL (75-99)
[2019-07-01] MEDS ORDERED: FLUCONAZOLE 150 MG TAB PO STA (18:15)
--- NOTE | 2019-07-01 18:15 | P.PN ---
Progress Note - Text Progress Note Date: 07/01/19 Chief Complaint: I am suicidal This is a 74-year-old patient of Dr. Whitlock. Resident of [facility]. Chronic stable medical conditions include diabetes, hypertension, hyperlipidemia, BPH. Chronic kidney disease. CHF EF 50-55% Patient normally uses a walker. Patient was getting frustrated at home because is followed a working. He kept calling the EMS. Hoping that they will come out and fixed the phone. When they did come out last few suicidal he said I was stupid enough to say I'm suicidal to get the attention. He goes on to say of course while the ambulance people come and fix my phone. I'll just being stupid again. Patient is found to have infected appearing urine in the ER as tolerated IV ceftriaxone. Denies any obvious fever and chills. Appetite is fair. Did feel a bit tired. Psychiatry was consulted. Admitted with-acute UTI and cystitis. Started and IV antibiotics. Seen by psychiatry. Cleared. Today-feeling better. Tolerating a diet. Urine cultures are pending. Patient has a chronic Saenz. Review of systems: Was done for constitutional, cardiovascular, GI, pulmonary. relevant finding as above Active Medications Acetaminophen (Tylenol Tab) 500 mg PO Q6HR PRN PRN Reason: Fever and/ or Pain Albuterol/Ipratropium (Duoneb 0.5 Mg-3 Mg/3 Ml Soln) 3 ml INHALATION RT-QID PRN PRN Reason: Shortness Of Breath Or Wheezing Amiodarone HCl (Cordarone) 200 mg PO DAILY [facility] Last Admin: 07/01/19 08:55 Dose: 200 mg Documented by: Amlodipine Besylate (Norvasc) 5 mg PO DAILY [facility] Last Admin: 07/01/19 08:54 Dose: 5 mg Documented by: Atorvastatin Calcium (Lipitor) 10 mg PO HS [facility] Last Admin: 06/30/19 21:39 Dose: 10 mg Documented by: Calamine/Phenol (Calmoseptine Oint) 1 applic TOPICAL BID PRN PRN Reason: Skin Irritation Enoxaparin Sodium (Lovenox) 30 mg SQ DAILY [facility] Guaifenesin (Mucinex) 1,200 mg PO Q12HR [facility] Last Admin: 07/01/19 08:54 Dose: 1,200 mg Documented by: Sodium Chloride (Saline 0.9%) 1,000 mls @ 75 mls/hr IV .[id number] [facility] Last Admin: 07/01/19 07:17 Dose: 75 mls/hr Documented by: Ceftriaxone Sodium 1 gm/ (Sodium Chloride) 50 mls @ 100 mls/hr IVPB Q24HR [facility] Last Admin: 07/01/19 08:55 Dose: 100 mls/hr Documented by: Insulin Aspart (Novolog) 5 unit SQ AC-TID [facility] Last Admin: 07/01/19 17:21 Dose: Not Given Documented by: Insulin Detemir (Levemir) 44 unit SQ [facility] Last Admin: 06/30/19 21:38 Dose: 44 unit Documented by: Latanoprost (Xalatan 0.005%) 1 drops BOTH EYES [facility] Last Admin: 06/30/19 21:38 Dose: 1 drops Documented by: Metoprolol Tartrate (Lopressor) 50 mg PO BID [facility] Last Admin: 07/01/19 08:55 Dose: 50 mg Documented by: Mirtazapine (Remeron) 15 mg PO [facility] Last Admin: 06/30/19 21:39 Dose: 15 mg Documented by: Naloxone HCl (Narcan) 0.2 mg IV Q2M PRN PRN Reason: Opioid Reversal Sertraline HCl (Zoloft) 50 mg PO DAILY [facility] Last Admin: 07/01/19 08:55 Dose: 50 mg Documented by: Sodium Bicarbonate (Sodium Bicarbonate Tab) 1,300 mg PO BID [facility] Last Admin: 07/01/19 10:59 Dose: 1,300 mg Documented by: Tamsulosin HCl (Flomax) 0.4 mg PO [facility] Last Admin: 06/30/19 21:39 Dose: 0.4 mg Documented by: Physical examination: VITAL SIGNS: 97.9, 60, 18, 138/61, 92% on room air GENERAL: Laying in bed, comfortable EYES: Pupils equal. Conjunctiva normal. HEENT: External appearance of nose and ears normal, oral cavity grossly normal. NECK: JVD unable to assess; masses not palpable. HEART: [First and second heart sounds are normal; no edema LUNGS:[ Respiratory rate normal, fair entry ABDOMEN: Soft, nontender, liver spleen not palpable, no masses palpable. PSYCH: Alert and oriented x3; mood and affect, comfortable INVESTIGATIONS, reviewed in the clinical context: Potassium 4.3 bun 30 creatine 2.26 Previous testing White count 8.8 hemoglobin 10.3 potassium 4 bun 35 creatinine 2.70 UA positive for leukoesterase, WBC and few bacteria previous testing BUN 27 creatinine 2.82 on May 06 Assessment: -Acute UTI from cystitis secondary to BPH, POA -chronic congestive heart failure exacerbation from diastolic dysfunction EF 50- 55% -Possible acute tracheobronchitis. -Hypertensive heart disease -Diabetes mellitus type 2 on oral hypoglycemic -Essential hypertension -Hyperlipidemia -BPH-with uterine outflow obstruction -Chronic kidney disease stage 4 likely from diabetic nephropathy and hypertensive nephrosclerosis, -Full code Plan: *The patient is morning. Urine cultures are pending. Continue with IV ceftriaxone. Discussed with the patient.
[2019-07-01 20:37] LABS: Glucose,Whole Blood 199 mg/dL (75-99)
[2019-07-01] MEDS: ATORVASTATIN 10 MG TAB PO SCH (20:59)
[2019-07-01] MEDS: LATANOPROST 0.005% OPHTH DROPS 2.5 ML BTL BOTH EYES SCH (20:59)
[2019-07-01] MEDS: TAMSULOSIN 0.4 MG CAP.ER.24H PO SCH (20:59)
[2019-07-01] MEDS: MIRTAZAPINE 15 MG TAB PO SCH (20:59)
[2019-07-01] MEDS: INSULIN DETEMIR (LEVEMIR) 100 UNIT/ML SYR SQ SCH (20:59)
[2019-07-02 07:13] LABS: Glucose,Whole Blood 47 mg/dL (75-99)
[2019-07-02 07:44] LABS: Glucose,Whole Blood 78 mg/dL (75-99)
[2019-07-02] MEDS: INSULIN ASPART (NovoLOG) 100 UNIT/ML VIAL SQ SCH ×3 (08:42→17:06)
[2019-07-02] MEDS: amLODIPine 5 MG TAB PO SCH (10:11)
[2019-07-02] MEDS: SODIUM BICARBONATE TAB 650 MG TAB PO SCH ×2 (10:11→20:47)
[2019-07-02] MEDS: METOPROLOL TARTRATE 50 MG TAB PO SCH ×2 (10:11→20:47)
[2019-07-02] MEDS: guaiFENesin 600 MG TABLET.ER PO SCH ×2 (10:11→20:48)
[2019-07-02] MEDS: SERTRALINE 50 MG TAB PO SCH (10:12)
[2019-07-02] MEDS: AMIODARONE 200 MG TAB PO SCH (10:12)
[2019-07-02] MEDS: ENOXAPARIN 30 MG/0.3 ML SYRINGE SQ SCH (10:12)
[2019-07-02 11:22] LABS: Glucose,Whole Blood 265 mg/dL (75-99)
[2019-07-02 16:47] LABS: Glucose,Whole Blood 135 mg/dL (75-99)
--- NOTE | 2019-07-02 17:35 | P.PN ---
Progress Note - Text Progress Note Date: 07/02/19 Chief Complaint: I am suicidal This is a 74-year-old patient of Dr. Whitlock. Resident of [facility]. Chronic stable medical conditions include diabetes, hypertension, hyperlipidemia, BPH. Chronic kidney disease. CHF EF 50-55% Patient normally uses a walker. Patient was getting frustrated at home because is followed a working. He kept calling the EMS. Hoping that they will come out and fixed the phone. When they did come out last few suicidal he said I was stupid enough to say I'm suicidal to get the attention. He goes on to say of course while the ambulance people come and fix my phone. I'll just being stupid again. Patient is found to have infected appearing urine in the ER as tolerated IV ceftriaxone. Denies any obvious fever and chills. Appetite is fair. Did feel a bit tired. Psychiatry was consulted. Admitted with-acute UTI and cystitis. Started and IV antibiotics. Seen by psychiatry. Cleared. Today-stable. Tolerating a diet. Tired. Hasn't really been out of bed. Feeling weak.. Review of systems: Was done for constitutional, cardiovascular, GI, pulmonary. relevant finding as above Active Medications Acetaminophen (Tylenol Tab) 500 mg PO Q6HR PRN PRN Reason: Fever and/ or Pain Albuterol/Ipratropium (Duoneb 0.5 Mg-3 Mg/3 Ml Soln) 3 ml INHALATION RT-QID PRN PRN Reason: Shortness Of Breath Or Wheezing Amiodarone HCl (Cordarone) 200 mg PO DAILY [facility] Last Admin: 07/02/19 10:12 Dose: 200 mg Documented by: Amlodipine Besylate (Norvasc) 5 mg PO DAILY [facility] Last Admin: 07/02/19 10:11 Dose: 5 mg Documented by: Atorvastatin Calcium (Lipitor) 10 mg PO HS [facility] Last Admin: 07/01/19 20:59 Dose: 10 mg Documented by: Calamine/Phenol (Calmoseptine Oint) 1 applic TOPICAL BID PRN PRN Reason: Skin Irritation Enoxaparin Sodium (Lovenox) 30 mg SQ DAILY [facility] Last Admin: 07/02/19 10:12 Dose: 30 mg Documented by: Guaifenesin (Mucinex) 1,200 mg PO Q12HR [facility] Last Admin: 07/02/19 10:11 Dose: 1,200 mg Documented by: Sodium Chloride (Saline 0.9%) 1,000 mls @ 75 mls/hr IV .[id number] [facility] Last Admin: 07/01/19 21:00 Dose: 75 mls/hr Documented by: Ceftriaxone Sodium 1 gm/ (Sodium Chloride) 50 mls @ 100 mls/hr IVPB Q24HR [facility] Last Admin: 07/02/19 10:12 Dose: 100 mls/hr Documented by: Insulin Aspart (Novolog) 5 unit SQ AC-TID [facility] Last Admin: 07/02/19 17:06 Dose: Not Given Documented by: Insulin Detemir (Levemir) 44 unit SQ [facility] Last Admin: 07/01/19 20:59 Dose: 44 unit Documented by: Latanoprost (Xalatan 0.005%) 1 drops BOTH EYES [facility] Last Admin: 07/01/19 20:59 Dose: 1 drops Documented by: Metoprolol Tartrate (Lopressor) 50 mg PO BID [facility] Last Admin: 07/02/19 10:11 Dose: 50 mg Documented by: Mirtazapine (Remeron) 15 mg PO [facility] Last Admin: 07/01/19 20:59 Dose: 15 mg Documented by: Naloxone HCl (Narcan) 0.2 mg IV Q2M PRN PRN Reason: Opioid Reversal Sertraline HCl (Zoloft) 50 mg PO DAILY [facility] Last Admin: 07/02/19 10:12 Dose: 50 mg Documented by: Sodium Bicarbonate (Sodium Bicarbonate Tab) 1,300 mg PO BID [facility] Last Admin: 07/02/19 10:11 Dose: 1,300 mg Documented by: Tamsulosin HCl (Flomax) 0.4 mg PO [facility] Last Admin: 07/01/19 20:59 Dose: 0.4 mg Documented by: Physical examination: VITAL SIGNS: 98.6, 58, 16, 128/61, 95% on room air GENERAL: Laying in bed, comfortable EYES: Pupils equal. Conjunctiva normal. HEENT: External appearance of nose and ears normal, oral cavity grossly normal. NECK: JVD unable to assess; masses not palpable. HEART: [First and second heart sounds are normal; no edema LUNGS:[ Respiratory rate normal, fair entry ABDOMEN: Soft, nontender, liver spleen not palpable, no masses palpable. PSYCH: Alert and oriented x3; mood and affect, comfortable INVESTIGATIONS, reviewed in the clinical context: Potassium 4.3 bun 30 creatine 2.26 Previous testing White count 8.8 hemoglobin 10.3 potassium 4 bun 35 creatinine 2.70 UA positive for leukoesterase, WBC and few bacteria previous testing BUN 27 creatinine 2.82 on May 06 Assessment: -Acute UTI from cystitis secondary to BPH, POA -chronic congestive heart failure exacerbation from diastolic dysfunction EF 50- 55% -Possible acute tracheobronchitis. -Hypertensive heart disease -Diabetes mellitus type 2 on oral hypoglycemic -Essential hypertension -Hyperlipidemia -BPH-with uterine outflow obstruction -Chronic kidney disease stage 4 likely from diabetic nephropathy and hypertensive nephrosclerosis, -Full code Plan: Had a lengthy talk with patient's son over the phone. We'll like the patient to be assessed for rehab. PTOT to evaluate. Total time spent today was about 40 minutes with over 25 minutes in discussion. Also discussed with the patient and the nurse.
[2019-07-02 20:41] LABS: Glucose,Whole Blood 228 mg/dL (75-99)
[2019-07-02] MEDS: ATORVASTATIN 10 MG TAB PO SCH (20:47)
[2019-07-02] MEDS: TAMSULOSIN 0.4 MG CAP.ER.24H PO SCH (20:47)
[2019-07-02] MEDS: MIRTAZAPINE 15 MG TAB PO SCH (20:47)
[2019-07-02] MEDS: LATANOPROST 0.005% OPHTH DROPS 2.5 ML BTL BOTH EYES SCH (20:48)
[2019-07-02] MEDS: INSULIN DETEMIR (LEVEMIR) 100 UNIT/ML SYR SQ SCH (20:48)
[2019-07-02] MEDS: SODIUM CHLORIDE 0.9% 1,000 ML IV SCH (20:54)
[2019-07-03] MEDS: SODIUM CHLORIDE 0.9% 1,000 ML IV SCH ×2 (01:26→17:21)
[2019-07-03 07:16] LABS: Glucose,Whole Blood 57 mg/dL (75-99)
[2019-07-03 07:54] LABS: Glucose,Whole Blood 72 mg/dL (75-99)
[2019-07-03] MEDS: SODIUM BICARBONATE TAB 650 MG TAB PO SCH ×2 (09:48→20:47)
[2019-07-03] MEDS: guaiFENesin 600 MG TABLET.ER PO SCH ×2 (09:48→20:48)
[2019-07-03] MEDS: METOPROLOL TARTRATE 50 MG TAB PO SCH ×2 (09:48→20:48)
[2019-07-03] MEDS: INSULIN ASPART (NovoLOG) 100 UNIT/ML VIAL SQ SCH ×3 (09:48→17:21)
[2019-07-03] MEDS: AMIODARONE 200 MG TAB PO SCH (09:48)
[2019-07-03] MEDS: SERTRALINE 50 MG TAB PO SCH (09:48)
[2019-07-03] MEDS: amLODIPine 5 MG TAB PO SCH (09:48)
[2019-07-03] MEDS: ENOXAPARIN 30 MG/0.3 ML SYRINGE SQ SCH (09:49)
[2019-07-03 11:34] LABS: Glucose,Whole Blood 111 mg/dL (75-99)
[2019-07-03 16:57] LABS: Glucose,Whole Blood 203 mg/dL (75-99)
--- NOTE | 2019-07-03 19:20 | P.PN ---
Progress Note - Text Progress Note Date: 07/03/19 Chief Complaint: I am suicidal This is a 74-year-old patient of Dr. Whitlock. Resident of [facility]. Chronic stable medical conditions include diabetes, hypertension, hyperlipidemia, BPH. Chronic kidney disease. CHF EF 50-55% Patient normally uses a walker. Patient was getting frustrated at home because is followed a working. He kept calling the EMS. Hoping that they will come out and fixed the phone. When they did come out last few suicidal he said I was stupid enough to say I'm suicidal to get the attention. He goes on to say of course while the ambulance people come and fix my phone. I'll just being stupid again. Patient is found to have infected appearing urine in the ER as tolerated IV ceftriaxone. Denies any obvious fever and chills. Appetite is fair. Did feel a bit tired. Psychiatry was consulted. Admitted with-acute UTI and cystitis. Started and IV antibiotics. Seen by psychiatry. Cleared. Today-stable. Tolerating a diet. Tired. Hasn't really been out of bed. Pending placement Review of systems: Was done for constitutional, cardiovascular, GI, pulmonary. relevant finding as above Active Medications Acetaminophen (Tylenol Tab) 500 mg PO Q6HR PRN PRN Reason: Fever and/ or Pain Albuterol/Ipratropium (Duoneb 0.5 Mg-3 Mg/3 Ml Soln) 3 ml INHALATION RT-QID PRN PRN Reason: Shortness Of Breath Or Wheezing Amiodarone HCl (Cordarone) 200 mg PO DAILY [facility] Last Admin: 07/03/19 09:48 Dose: 200 mg Documented by: Amlodipine Besylate (Norvasc) 5 mg PO DAILY [facility] Last Admin: 07/03/19 09:48 Dose: 5 mg Documented by: Atorvastatin Calcium (Lipitor) 10 mg PO HS [facility] Last Admin: 07/02/19 20:47 Dose: 10 mg Documented by: Calamine/Phenol (Calmoseptine Oint) 1 applic TOPICAL BID PRN PRN Reason: Skin Irritation Enoxaparin Sodium (Lovenox) 30 mg SQ DAILY [facility] Last Admin: 07/03/19 09:49 Dose: 30 mg Documented by: Guaifenesin (Mucinex) 1,200 mg PO Q12HR [facility] Last Admin: 07/03/19 09:48 Dose: 1,200 mg Documented by: Sodium Chloride (Saline 0.9%) 1,000 mls @ 75 mls/hr IV .[id number] [facility] Last Admin: 07/03/19 17:21 Dose: 75 mls/hr Documented by: Ceftriaxone Sodium 1 gm/ (Sodium Chloride) 50 mls @ 100 mls/hr IVPB Q24HR [facility] Last Admin: 07/03/19 09:48 Dose: 100 mls/hr Documented by: Insulin Aspart (Novolog) 5 unit SQ AC-TID [facility] Last Admin: 07/03/19 17:21 Dose: 5 unit Documented by: Insulin Detemir (Levemir) 35 unit SQ [facility] Latanoprost (Xalatan 0.005%) 1 drops BOTH EYES [facility] Last Admin: 07/02/19 20:48 Dose: 1 drops Documented by: Metoprolol Tartrate (Lopressor) 50 mg PO BID [facility] Last Admin: 07/03/19 09:48 Dose: 50 mg Documented by: Mirtazapine (Remeron) 15 mg PO [facility] Last Admin: 07/02/19 20:47 Dose: 15 mg Documented by: Naloxone HCl (Narcan) 0.2 mg IV Q2M PRN PRN Reason: Opioid Reversal Sertraline HCl (Zoloft) 50 mg PO DAILY [facility] Last Admin: 07/03/19 09:48 Dose: 50 mg Documented by: Sodium Bicarbonate (Sodium Bicarbonate Tab) 1,300 mg PO BID [facility] Last Admin: 07/03/19 09:48 Dose: 1,300 mg Documented by: Tamsulosin HCl (Flomax) 0.4 mg PO [facility] Last Admin: 07/02/19 20:47 Dose: 0.4 mg Documented by: Physical examination: VITAL SIGNS: 98, 60, 16, 105/61, 98% on room air GENERAL: Laying in bed, comfortable EYES: Pupils equal. Conjunctiva normal. HEENT: External appearance of nose and ears normal, oral cavity grossly normal. NECK: JVD unable to assess; masses not palpable. HEART: [First and second heart sounds are normal; no edema LUNGS:[ Respiratory rate normal, fair entry ABDOMEN: Soft, nontender, liver spleen not palpable, no masses palpable. PSYCH: Alert and oriented x3; mood and affect, comfortable INVESTIGATIONS, reviewed in the clinical context: Accu-Cheks 57, 72, bun 11 Previous testing White count 8.8 hemoglobin 10.3 potassium 4 bun 35 creatinine 2.70 UA positive for leukoesterase, WBC and few bacteria previous testing BUN 27 creatinine 2.82 on May 06 Assessment: -Acute UTI from cystitis secondary to BPH, POA -chronic congestive heart failure exacerbation from diastolic dysfunction EF 50- 55% -Possible acute tracheobronchitis. -Hypertensive heart disease -Diabetes mellitus type 2 on oral hypoglycemic, uncontrolled with hypoglycemia -Essential hypertension -Hyperlipidemia -BPH-with uterine outflow obstruction -Chronic kidney disease stage 4 likely from diabetic nephropathy and hypertensive nephrosclerosis, -Full code Plan: We'll decrease the Levemir to 30 units subcu daily at bedtime. Awaiting to go to rehab
[2019-07-03 20:36] LABS: Glucose,Whole Blood 198 mg/dL (75-99)
[2019-07-03] MEDS: LATANOPROST 0.005% OPHTH DROPS 2.5 ML BTL BOTH EYES SCH (20:47)
[2019-07-03] MEDS: MIRTAZAPINE 15 MG TAB PO SCH (20:48)
[2019-07-03] MEDS: ATORVASTATIN 10 MG TAB PO SCH (20:48)
[2019-07-03] MEDS: TAMSULOSIN 0.4 MG CAP.ER.24H PO SCH (20:48)
[2019-07-03] MEDS ORDERED: INSULIN DETEMIR (LEVEMIR) 100 UNIT/ML SYR SQ SCH ×2 (21:00)
[2019-07-04] MEDS: SODIUM CHLORIDE 0.9% 1,000 ML IV SCH (04:19)
[2019-07-04 06:50] LABS: Glucose,Whole Blood 109 mg/dL (75-99)
[2019-07-04] MEDS: INSULIN ASPART (NovoLOG) 100 UNIT/ML VIAL SQ SCH ×2 (07:08→13:12)
[2019-07-04] MEDS: guaiFENesin 600 MG TABLET.ER PO SCH (09:34)
[2019-07-04] MEDS: SODIUM BICARBONATE TAB 650 MG TAB PO SCH (09:34)
[2019-07-04] MEDS: amLODIPine 5 MG TAB PO SCH (09:34)
[2019-07-04] MEDS: METOPROLOL TARTRATE 50 MG TAB PO SCH (09:34)
[2019-07-04] MEDS: SERTRALINE 50 MG TAB PO SCH (09:34)
[2019-07-04] MEDS: AMIODARONE 200 MG TAB PO SCH (09:34)
[2019-07-04] MEDS: ENOXAPARIN 30 MG/0.3 ML SYRINGE SQ SCH (09:34)
[2019-07-04 11:21] LABS: Glucose,Whole Blood 142 mg/dL (75-99)
[2019-07-04 14:30] VITALS: BP 149/66; PULSE 61; RESP 15; TEMP 98.5
--- NOTE | 2019-07-04 21:03 | P.DS ---
Providers Date of admission: 07/01/19 13:35 Expected date of discharge: 07/04/19 Attending physician: [place] Consults: 06/30/19 05:48 Consult Physician Routine Consulting Provider: George Jefferson Consult Reason/Comments: Psychiatric evaluation Do you want consulting provider notified?: Yes Primary care physician: [facility] Hospital Course: Chief Complaint: I am suicidal This is a 74-year-old patient of Dr. Whitlock. Resident of [facility]. Chronic stable medical conditions include diabetes, hypertension, hyperlipidemia, BPH. Chronic kidney disease. CHF EF 50-55% Patient normally uses a walker. Patient was getting frustrated at home because is followed a working. He kept calling the EMS. Hoping that they will come out and fixed the phone. When they did come out last few suicidal he said I was stupid enough to say I'm suicidal to get the attention. He goes on to say of course while the ambulance people come and fix my phone. I'll just being stupid again. Patient is found to have infected appearing urine in the ER as tolerated IV ceftriaxone. Denies any obvious fever and chills. Appetite is fair. Did feel a bit tired. Psychiatry was consulted. Admitted with-acute UTI and cystitis. Started and IV antibiotics. Seen by psychiatry. Cleared. Today-patient initially was supposed to go to inpatient rehab. Today patient insisting to go back to his assisted living. Talked to him at length. Also discussed with nurse. Social work involved. Patient returned to his assisted living. Discussion and discharge planning more than 35 minutes Consultation: Dr. Jefferson from psychiatry Physical examination: VITAL SIGNS: 98.2, 65, 20, 134/83, 94% on room air GENERAL: Laying in bed, comfortable EYES: Pupils equal. Conjunctiva normal. HEENT: External appearance of nose and ears normal, oral cavity grossly normal. NECK: JVD unable to assess; masses not palpable. HEART: [First and second heart sounds are normal; no edema LUNGS:[ Respiratory rate normal, fair entry ABDOMEN: Soft, nontender, liver spleen not palpable, no masses palpable. PSYCH: Alert and oriented x3; mood and affect, comfortable INVESTIGATIONS, reviewed in the clinical context: Accu-Cheks 109, 142 Previous testing White count 8.8 hemoglobin 10.3 potassium 4 bun 35 creatinine 2.70 UA positive for leukoesterase, WBC and few bacteria previous testing BUN 27 creatinine 2.82 on May 06 Assessment: -Acute UTI from cystitis secondary to BPH, POA -chronic congestive heart failure exacerbation from diastolic dysfunction EF 50- 55% -Possible acute tracheobronchitis. -Hypertensive heart disease -Diabetes mellitus type 2 on oral hypoglycemic, uncontrolled with hypoglycemia -Essential hypertension -Hyperlipidemia -BPH-with uterine outflow obstruction -Chronic kidney disease stage 4 likely from diabetic nephropathy and hypertensive nephrosclerosis, -Full code Disposition: Assisted living Patient Condition at Discharge: Stable Plan - Discharge Summary Discharge Rx Participant: No New Discharge Prescriptions: New Mirtazapine [Remeron] 15 mg PO HS #30 tab Sertraline [Zoloft] 50 mg PO DAILY #30 tab Insulin Detemir (Levemir) [Levemir] 24 unit SQ HS #1 syr Continue amLODIPine [Norvasc] 5 mg PO DAILY Atorvastatin [Lipitor] 10 mg PO HS Amiodarone [Cordarone] 200 mg PO DAILY Tamsulosin [Flomax] 0.4 mg PO HS Latanoprost [Xalatan 0.005%] 1 drop BOTH EYES HS INSULIN ASPART (NovoLOG) [NovoLOG (formulary)] 5 unit SQ AC-TID Metoprolol Tartrate [Lopressor] 50 mg PO BID Menthol-Zinc Oxide Oint [Calmoseptine Oint] 1 applic TOPICAL BID PRN applic PRN Reason: Skin Irritation Ipratropium-Albuterol Nebulize [Duoneb 0.5 mg-3 mg/3 ml Soln] 3 ml INHALATION RT-QID PRN ml PRN Reason: Shortness Of Breath Or Wheezing guaiFENesin [Mucinex] 1,200 mg PO Q12HR tablet.er Sodium Bicarbonate Tab 1,300 mg PO BID tab Acetaminophen Tab [Tylenol] 500 mg PO Q6HR PRN tab PRN Reason: Fever And/ Or Pain Magnesium Oxide [Mag-Ox] 400 mg PO DAILY #15 tablet Nitrofurantoin Monohyd/M-Cryst [Macrobid] 100 mg PO Q12HR #14 cap Discontinued Loratadine [Claritin] 5 mg PO BID tab Furosemide [Lasix] 40 mg PO DAILY #1 tablet Discharge Medication List Amiodarone [Cordarone] 200 mg PO DAILY 01/03/19 [History] Atorvastatin [Lipitor] 10 mg PO HS 11/04/19 [History] amLODIPine [Norvasc] 5 mg PO DAILY 01/03/19 [History] Tamsulosin [Flomax] 0.4 mg PO HS 02/01/19 [History] INSULIN ASPART (NovoLOG) [NovoLOG (formulary)] 5 unit SQ AC-TID 03/11/19 [History] Latanoprost [Xalatan 0.005%] 1 drop BOTH EYES HS 03/11/19 [History] Metoprolol Tartrate [Lopressor] 50 mg PO BID 05/01/19 [History] Acetaminophen Tab [Tylenol] 500 mg PO Q6HR PRN tab 05/07/19 [Rx] Ipratropium-Albuterol Nebulize [Duoneb 0.5 mg-3 mg/3 ml Soln] 3 ml INHALATION RT-QID PRN ml 05/07/19 [Rx] Menthol-Zinc Oxide Oint [Calmoseptine Oint] 1 applic TOPICAL BID PRN applic 05/07/19 [Rx] Sodium Bicarbonate Tab 1,300 mg PO BID tab 05/07/19 [Rx] guaiFENesin [Mucinex] 1,200 mg PO Q12HR tablet.er 05/07/19 [Rx] Magnesium Oxide [Mag-Ox] 400 mg PO DAILY #15 tablet 06/15/19 [Rx] Nitrofurantoin Monohyd/M-Cryst [Macrobid] 100 mg PO Q12HR #14 cap 06/28/19 [Rx] Mirtazapine [Remeron] 15 mg PO HS #30 tab 07/02/19 [Rx] Sertraline [Zoloft] 50 mg PO DAILY #30 tab 07/02/19 [Rx] Insulin Detemir (Levemir) [Levemir] 24 unit SQ HS #1 syr 07/04/19 [Rx] Follow up Appointment(s)/Referral(s): George Whitlock DO [Primary Care Provider] - 1-2 days Patient Instructions/Handouts: Urinary Tract Infection in Men (DC), Saenz Catheter Placement and Care (DC), Altered Mental Status (GEN) Activity/Diet/Wound Care/Special Instructions: [facility]: #[phone] Discharge Disposition: HOME WITH HOME HEALTH SERVICES
== END 2019-07-04 14:59 | disposition home health service (06) | DRG 698 ==
LOC: EC 04:25 → 4SSUR 05:48 → OBSVTOIN 07-01 13:35
PROVIDERS: ADMIT Hospitalist; ATTEND Hospitalist
DX: T83.518A Infection and inflammatory reaction due to other urinary catheter, initial encounter (principal); I50.33 Acute on chronic diastolic (congestive) heart failure; N30.00 Acute cystitis without hematuria; I13.0 Hypertensive heart and chronic kidney disease with heart failure and stage 1 through stage 4 chronic kidney disease, or unspecified chronic kidney disease; N18.4 Chronic kidney disease, stage 4 (severe); N13.8 Other obstructive and reflux uropathy; R45.851 Suicidal ideations; F33.9 Major depressive disorder, recurrent, unspecified; E11.22 Type 2 diabetes mellitus with diabetic chronic kidney disease; E11.649 Type 2 diabetes mellitus with hypoglycemia without coma; E78.5 Hyperlipidemia, unspecified; N40.1 Benign prostatic hyperplasia with lower urinary tract symptoms; Z79.4 Long term (current) use of insulin; Z79.899 Other long term (current) drug therapy; Z85.828 Personal history of other malignant neoplasm of skin; J20.9 Acute bronchitis, unspecified; Z11.59 Encounter for screening for other viral diseases
CPT/HCPCS: 36415; 80048; 80053; 81001; 85025; 87086; 87635; 96365; 96375; 99285